=== PATIENT | male | born 1940 | race Caucasian/White ===

== ENCOUNTER 2020-09-26 06:08 | Outpatient (REF) | payer MEDICARE, SELFPAY ==
[2020-09-26 07:00] LABS: MANUAL DIFF FLAG NO
[2020-09-26 07:01] LABS: Basophils Percent Auto 0.3 % (0-2); Eosinophils Absolute Auto 0.2 X10*3/uL (0.0-0.4); Eosinophils Percent Auto 2.9 % (0-4); Hematocrit 42.2 % (42-52); Hemoglobin 14.1 g/dl (14.0-18.0); Imm Gran Abs Auto 0.01 X10*3/uL (0.00-0.03); Imm Gran Pct Auto 0.2 % (0.0-0.4); Lymphocytes Percent Auto 32.6 % (20-40); Mean Corpuscular HGB Conc 33.4 g/dl (31.0-36.0); Mean Corpuscular Hemoglobin 33.1 pg (27.0-33.0); Mean Corpuscular Volume 99.1 fL (80-98); Monocytes Absolute Auto 0.6 X10*3/uL (0.1-1.2); Monocytes Percent Auto 9.1 % (2-11); Neutrophils Absolute Auto 3.4 X10*3/uL (2.0-8.3); Neutrophils Percent Auto 54.9 % (45-73); Platelet Count 160 X10*3/uL (160-400); Red Blood Count 4.26 X10*6/uL (4.60-5.80); Red Cell Distribution Width 12.5 % (11.0-16.0); White Blood Count 6.3 X10*3/uL (4.8-10.8)
[2020-09-26 07:37] LABS: Alanine Aminotransferase 13 U/L (0-40); Albumin Level 4.3 g/dL (3.5-5.0); Alkaline Phosphatase 57 U/L (39-117); Anion Gap 11 (12-20); Aspartate Amino Transferase 16 U/L (5-37); Bilirubin Direct 0.3 mg/dL (0.0-0.5); Bilirubin Total 0.7 mg/dL (0.0-1.0); Blood Urea Nitrogen 25 mg/dL (9-16); Calcium 8.4 mg/dL (8.4-10.2); Carbon Dioxide 27 mmol/L (22-29); Chloride 107 mmol/L (96-108); Cholesterol 142 mg/dL; Estimated Glomerular Filt Rate 59; Glucose Fasting 97 mg/dL (60-99); HDL Cholesterol 38 mg/dL; LDL Cholesterol Calculated 81 mg/dl; Potassium 4.2 mmol/l (3.3-5.1); Sodium 141 mmol/L (135-145); Total Protein 6.6 g/dL (6.5-8.0); Triglycerides 116 mg/dL
== END 2020-09-26 06:09 | disposition home or self-care (01) ==
LOC: HO.LAB 06:08
DX: I10 Essential (primary) hypertension (principal); E78.5 Hyperlipidemia, unspecified
CPT/HCPCS: 36415; 80053; 80061; 80076; 82248; 85025

== ENCOUNTER 2021-04-12 06:01 | Outpatient (REF) | payer MEDICARE, SELFPAY ==
[2021-04-12 07:32] LABS: Anion Gap 12 (12-20); Blood Urea Nitrogen 21 mg/dL (9-16); Carbon Dioxide 28 mmol/L (22-29); Chloride 107 mmol/L (96-108); Estimated Glomerular Filt Rate 57; Magnesium 1.8 mg/dL (1.6-2.6); Potassium 4.8 mmol/L (3.3-5.1); Sodium 142 mmol/L (135-145)
== END 2021-04-12 06:02 | disposition home or self-care (01) ==
LOC: HO.LAB 06:01
PROVIDERS: PCP Family Medicine; Visit Provider Family Medicine
DX: I10 Essential (primary) hypertension (principal); Z79.899 Other long term (current) drug therapy
CPT/HCPCS: 36415; 80051; 82565; 83735; 84520

== ENCOUNTER 2021-06-05 05:56 | Outpatient (REF) | payer MEDICARE, SELFPAY ==
--- NOTE | ~2021-06-05 | XR_ITS ---
EXAMINATION: XR ANKLE, RIGHT XR LUMBAR SPINE CLINICAL INFORMATION: Right lateral ankle pain and back pain. COMPARISON: None TECHNIQUE: Three views of the right ankle and three views of the lumbar spine. FINDINGS: RIGHT ANKLE: There is no evidence of acute fracture or dislocation of the right ankle. There is noted to be some soft tissue swelling laterally with loss of fat plane. Mortise appears intact. There is some spurring with ossific calcifications about the medial malleolus. These are likely post traumatic and not secondary to secondary ossification centers. There is some spurring about the dorsal aspects of the talar and navicular bones. Calcaneal spurs at sites of insertion of plantar and Achilles tendons. LUMBAR SPINE: There are 5 nonrib-bearing lumbar vertebrae. There is mild scoliosis, convex left. Prominent multilevel spurring is present without significant disc space narrowing. There is prominent facet arthropathy noted at L4 through S1. There is calcification of a nonaneurysmal abdominal aorta. XR/XR lumbar spine 2-3V IMPRESSION: Degenerative change and soft tissue swelling about the right ankle without evidence of acute fracture or dislocation. Prominent calcaneal spurs. No evidence of acute fracture, spondylolisthesis, or spondylolysis of the lumbar spine. Multilevel degenerative spurring and facet arthropathy within the lumbar spine.
--- NOTE | ~2021-06-05 | XR_ITS ---
EXAMINATION: XR ANKLE, RIGHT XR LUMBAR SPINE CLINICAL INFORMATION: Right lateral ankle pain and back pain. COMPARISON: None TECHNIQUE: Three views of the right ankle and three views of the lumbar spine. FINDINGS: RIGHT ANKLE: There is no evidence of acute fracture or dislocation of the right ankle. There is noted to be some soft tissue swelling laterally with loss of fat plane. Mortise appears intact. There is some spurring with ossific calcifications about the medial malleolus. These are likely post traumatic and not secondary to secondary ossification centers. There is some spurring about the dorsal aspects of the talar and navicular bones. Calcaneal spurs at sites of insertion of plantar and Achilles tendons. LUMBAR SPINE: There are 5 nonrib-bearing lumbar vertebrae. There is mild scoliosis, convex left. Prominent multilevel spurring is present without significant disc space narrowing. There is prominent facet arthropathy noted at L4 through S1. There is calcification of a nonaneurysmal abdominal aorta. XR/XR ankle RT min 3V IMPRESSION: Degenerative change and soft tissue swelling about the right ankle without evidence of acute fracture or dislocation. Prominent calcaneal spurs. No evidence of acute fracture, spondylolisthesis, or spondylolysis of the lumbar spine. Multilevel degenerative spurring and facet arthropathy within the lumbar spine.
[2021-06-05 07:02] LABS: MANUAL DIFF FLAG NO
[2021-06-05 07:08] LABS: Basophils Percent Auto 0.2 % (0-2); Eosinophils Absolute Auto 0.2 X10*3/uL (0.0-0.4); Eosinophils Percent Auto 2.9 % (0-4); Hematocrit 41.7 % (42-52); Hemoglobin 13.9 g/dl (14.0-18.0); Imm Gran Abs Auto 0.02 X10*3/uL (0.00-0.03); Imm Gran Pct Auto 0.3 % (0.0-0.4); Lymphocytes Absolute Auto 2.4 X10*3/uL (1.2-4.9); Lymphocytes Percent Auto 36.2 % (20-40); Mean Corpuscular HGB Conc 33.3 g/dl (31.0-36.0); Mean Corpuscular Hemoglobin 32.7 pg (27.0-33.0); Mean Corpuscular Volume 98.1 fL (80-98); Mean Platelet Volume 10.6 fL (9.4-12.4); Monocytes Absolute Auto 0.7 X10*3/uL (0.1-1.2); Monocytes Percent Auto 9.8 % (2-11); Neutrophils Absolute Auto 3.4 X10*3/uL (2.0-8.3); Neutrophils Percent Auto 50.6 % (45-73); Platelet Count 165 X10*3/uL (160-400); Red Blood Count 4.25 X10*6/uL (4.60-5.80); White Blood Count 6.6 X10*3/uL (4.8-10.8)
[2021-06-05 07:30] LABS: Alanine Aminotransferase 11 U/L (0-40); Albumin Level 4.1 g/dL (3.5-5.0); Alkaline Phosphatase 54 U/L (39-117); Anion Gap 15 (12-20); Aspartate Amino Transferase 16 U/L (5-37); Bilirubin Total 0.8 mg/dL (0.0-1.0); Blood Urea Nitrogen 28 mg/dL (9-16); Calcium 9.7 mg/dL (8.4-10.2); Carbon Dioxide 25 mmol/L (22-29); Chloride 107 mmol/L (96-108); Estimated Glomerular Filt Rate 51; Glucose Fasting 111 mg/dL (60-99); Potassium 4.7 mmol/L (3.3-5.1); Sodium 142 mmol/L (135-145); Total Protein 6.7 g/dL (6.5-8.0)
[2021-06-05 07:52] LABS: Free T4 (Free Thyroxine) 0.96 ng/dL (0.71-1.85)
== END 2021-06-05 05:57 | disposition home or self-care (01) ==
LOC: HO.LAB 05:56
PROVIDERS: PCP Family Medicine; Visit Provider Family Medicine
DX: M54.9 Dorsalgia, unspecified (principal); M25.571 Pain in right ankle and joints of right foot
CPT/HCPCS: 36415; 72100; 73610; 80053; 82550; 84439; 85025

== ENCOUNTER 2021-12-23 15:42 | Outpatient (REF) | payer MEDICARE, SELFPAY ==
--- NOTE | ~2021-12-23 | US_ITS ---
EXAMINATION: US VENOUS ULTRASOUND WITH DOPPLER LOWER EXTREMITY, RIGHT CLINICAL INFORMATION: Right leg swelling. COMPARISON: Previous exams most recent September 2019 TECHNIQUE: Ultrasound of the deep veins is performed from the hip to the calf with compression sonography and color and pulse Doppler assessment. Spectral analysis with color-flow imaging is performed. FINDINGS: There is normal venous compression and respiratory variation and augmented flow. The visualized common femoral vein, superficial femoral vein, profunda femoral vein, popliteal vein, and the trifurcation region shows no evidence of deep venous thrombosis. There is diffuse edema. There is right inguinal lymphadenopathy. There is no significant popliteal fossa cyst. US/US venous duplex LE RT IMPRESSION: No DVT demonstrated in the right lower extremity.
== END 2021-12-23 15:43 | disposition home or self-care (01) ==
LOC: HO.US 15:42
PROVIDERS: PCP Family Medicine; Visit Provider Family Medicine
DX: R60.0 Localized edema (principal)
CPT/HCPCS: 93971

== ENCOUNTER 2022-02-18 06:00 | Outpatient (REF) | payer MEDICARE, SELFPAY ==
[2022-02-18 08:02] LABS: Anion Gap 17 (12-20); Blood Urea Nitrogen 36 mg/dL (9-16); Carbon Dioxide 22 mmol/L (22-29); Chloride 101 mmol/L (96-108); Estimated Glomerular Filt Rate 39; Sodium 136 mmol/L (135-145)
== END 2022-02-18 06:01 | disposition home or self-care (01) ==
LOC: HO.LAB 06:00
PROVIDERS: PCP Family Medicine; Visit Provider Family Medicine
DX: I10 Essential (primary) hypertension (principal)
CPT/HCPCS: 36415; 80051; 82565; 84520

== ENCOUNTER 2022-03-25 06:22 | Outpatient (REF) | payer MEDICARE, SELFPAY ==
[2022-03-25 06:37] LABS: MANUAL DIFF FLAG NO
[2022-03-25 07:30] LABS: Basophils Percent Auto 0.1 % (0-2); Eosinophils Absolute Auto 0.1 X10*3/uL (0.0-0.4); Eosinophils Percent Auto 0.8 % (0-4); Hematocrit 36.7 % (42.0-52.0); Imm Gran Abs Auto 0.04 X10*3/uL (0.00-0.03); Imm Gran Pct Auto 0.4 % (0.0-0.4); Lymphocytes Absolute Auto 1.7 X10*3/uL (1.2-4.9); Lymphocytes Percent Auto 17.9 % (20-40); Mean Corpuscular HGB Conc 32.7 g/dl (31.0-36.0); Mean Corpuscular Hemoglobin 32.3 pg (27.0-33.0); Mean Corpuscular Volume 98.7 fL (80.0-98.0); Mean Platelet Volume 10.2 fL (9.4-12.4); Monocytes Absolute Auto 0.7 X10*3/uL (0.1-1.2); Monocytes Percent Auto 7.1 % (2-11); Neutrophils Absolute Auto 7.1 x10*3/uL (2.0-8.3); Neutrophils Percent Auto 73.7 % (45-73); Platelet Count 148 X10*3/uL (160-400); Red Blood Count 3.72 X10*6/uL (4.60-5.80); Red Cell Distribution Width 14.9 % (11.0-16.0); White Blood Count 9.7 X10*3/uL (4.8-10.8)
[2022-03-25 07:57] LABS: Alanine Aminotransferase 10 U/L (0-40); Albumin Level 3.5 g/dL (3.5-5.0); Alkaline Phosphatase 45 U/L (39-117); Anion Gap 12 (12-20); Aspartate Amino Transferase 12 U/L (5-37); Bilirubin Total 0.5 mg/dL (0.0-1.0); Blood Urea Nitrogen 33 mg/dL (9-16); Calcium 8.6 mg/dL (8.4-10.2); Carbon Dioxide 25 mmol/L (22-29); Chloride 106 mmol/L (96-108); Estimated Glomerular Filt Rate 39; Glucose Random 154 mg/dL (60-115); Potassium 4.3 mmol/L (3.3-5.1); Sodium 139 mmol/L (135-145); Total Protein 6.1 g/dL (6.5-8.0)
[2022-03-25 08:18] LABS: Free T4 (Free Thyroxine) 1.03 ng/dL (0.71-1.85)
[2022-03-25 08:22] LABS: Erythrocyte Sedimentation Rate 50 MM/HR (0-15)
== END 2022-03-25 06:23 | disposition home or self-care (01) ==
LOC: HO.LAB 06:22
PROVIDERS: PCP Family Medicine; Visit Provider Family Medicine
DX: R06.02 Shortness of breath (principal); R53.83 Other fatigue; R42 Dizziness and giddiness
CPT/HCPCS: 36415; 80053; 84439; 85025; 85652

== ENCOUNTER 2022-08-11 05:57 | Outpatient (REF) | payer MEDICARE, SELFPAY ==
[2022-08-11 07:17] LABS: Alanine Aminotransferase 14 U/L (0-40); Albumin Level 4.1 g/dL (3.5-5.0); Alkaline Phosphatase 53 U/L (39-117); Anion Gap 16 (12-20); Aspartate Amino Transferase 16 U/L (5-37); Bilirubin Total 0.4 mg/dL (0.0-1.0); Blood Urea Nitrogen 28 mg/dL (9-16); Calcium 8.8 mg/dL (8.4-10.2); Carbon Dioxide 24 mmol/L (22-29); Chloride 107 mmol/L (96-108); Estimated Glomerular Filt Rate 50; Glucose Random 98 mg/dL (60-115); Potassium 4.3 mmol/L (3.3-5.1); Sodium 143 mmol/L (135-145); Total Protein 6.6 g/dL (6.5-8.0)
== END 2022-08-11 05:58 | disposition home or self-care (01) ==
LOC: HO.LAB 05:57
PROVIDERS: PCP Family Medicine; Visit Provider Family Medicine
DX: I10 Essential (primary) hypertension (principal); E78.00 Pure hypercholesterolemia, unspecified; R73.9 Hyperglycemia, unspecified; Z79.899 Other long term (current) drug therapy
CPT/HCPCS: 36415; 80053; 82550

== ENCOUNTER → 2022-09-04 06:03 | Outpatient (REF) | payer MEDICARE, SELFPAY ==
--- NOTE | 2022-09-04 06:45 | ECG_ITS ---
Test Reason : MALLOY Blood Pressure : / mmHG Vent. Rate : 071 BPM Atrial Rate : 070 BPM P-R Int : 000 ms QRS Dur : 098 ms QT Int : 378 ms P-R-T Axes : 000 029 087 degrees QTc Int : 410 ms Normal sinus rhythm with premature supra-ventricular complexes Nonspecific T wave abnormality Abnormal ECG When compared with ECG of 11-MAR-2010 13:36, Premature supraventricular complexes are now Present Nonspecific T wave abnormality is now Present Referred By: Trip Blanton Electronically Signed By:YOEL ANGUIANO
== END ==
LOC: HO.CARD 06:03
PROVIDERS: PCP Family Medicine; Visit Provider Family Medicine
DX: R06.00 Dyspnea, unspecified (principal)
CPT/HCPCS: 93005

== ENCOUNTER → 2022-10-14 07:23 | Outpatient (REF) | payer MEDICARE, SELFPAY ==
--- NOTE | 2022-10-14 07:28 | CA_ITS ---
Transthoracic Echocardiogram Patient (Last, First, Middle): Narendra Batista, Gender: Male Date of : 1940 Age: 82 Procedure Date: 10/14/2022 Procedure Type: Transthoracic Echocardiogram Location: OP Height: 172.72 cm Weight: 84.37 kg BSA: 1.98 m2 Heart Rate: 67 bpm BP: 132 / 64 mmHg Shop Router: SB Referring MD: Trip Blanton MD Telephone Supervisor: Adam Bravo MD Symptoms: I10 HTN SOB R06.02 R/O LVH Study Quality: Fair but adequate ECG Rhythm: Sinus Conclusions: - 1. Normal LV systolic function with grade 1 diastolic dysfunction with mild asymmetric septal hypertrophy 2. Mildly dilated left atrium 3. Normal cardiac valvular Dopplers 4. Normal RV systolic pressure 5. No gross pericardial effusion Findings Left Ventricle Normal left ventricular size, thickness, and systolic function. The visually estimated ejection fraction is between 55-60%. Regional wall motion abnormalities can not be excluded due to suboptimal endocardial definition. Spectral Doppler is indicative of an impaired relaxation filling pattern. E/E prime ratio is <8, consistent with normal filling pressures. Evidence suggests grade I (mild) diastolic dysfunction. There is mild septal asymmetric hypertrophy. Right Ventricle Normal right ventricular cavity size and systolic function. Atria The left atrium is mildly dilated. There is no evidence of interatrial shunt. The right atrium is normal in size. Aortic Valve The aortic valve structure and function is likely normal. There is no aortic valve stenosis. There is no aortic valve regurgitation. Mitral Valve There is mild anterior and posterior mitral leaflet thickening. There is trace mitral valve regurgitation. There is no mitral valve stenosis. Pulmonic Valve The pulmonic valve is likely normal. Tricuspid Valve Normal tricuspid valve structure. There is trace tricuspid valve regurgitation. The right ventricular systolic pressure is normal. The right ventricular systolic pressure is 36 mmHg. Normal right atrial pressure. There is no evidence of pulmonary hypertension. Great Vessels All visible segments of the aorta are normal in size. The pulmonary artery was not well visualized. Venous The inferior vena cava is normal in size and collapses greater than 50% with inspiration. Pericardium/Pleural There is no evidence of pericardial effusion. Measurements 2D Linear Measurements IVSd: 1.25 0.6-0.9/0.6-1.0 cm LVIDd: 5.07 3.9-5.3/4.2-5.9 cm LVIDd Index: 2.56 2.4-3.2/2.2-3.1 cm/m2 LVIDs: 3.63 2.0-3.6 cm LVPWd: 0.93 0.7-1.1 cm LA Diam: 3.80 2.7-3.8/3.0-4.0 cm LAIDs Index: 1.92 1.5-2.3 cm/m2 LV Mass: 260.95 67-162/88-224 g LV Mass Index: 131.79 43-95/49-115 g/m2 LVOT Diam: 2.20 3.0+(-)1.3 cm 2D Systolic Function EF 4C: 53.70 >55% Mitral Valve MV Pk E: 0.68 MV PK A: 0.72 MV Decel Time: 215.00 E/A: 0.90 E'Lateral: 7.62 E'Medial: 7.62 E/E' Med: 8.90 E/E' Lat: 8.90 PHT: 63.00 MVA PHT: 3.49 Decel [place]arton: 3.15 Aortic Valve AoV Pk Kel: 1.31 AoV Mn Kel: 0.93 AoV VTI: 0.29 AoV Pk Grad: 7.00 Aov Mn Grad: 4.00 PAPO Cont.VTI: 2.16 LVOT LVOT Pk Kel: 0.74 LVOT Mn Kel: 0.53 LVOT VTI: 0.17 LVOT Pk Grad: 2.00 LVOT Mn Grad: 1.00 LVOT Diam: 2.20 LVOT Area: 3.80 Diastolic Function MV Pk E: 0.68 MV Pk A: 0.72 E/A: 0.90 E'Medial: 7.62 E/E' Med: 8.90 E' Laterial: 7.62 E/E' Lat: 8.90 Right Ventricle TAPSE (mm): 27.50 TVS' Kel: 19.60 Tricuspid Valve TR Pk Kel: 2.86 TR Pk Grad: 33.00 RA Press: 3.00 RVSP: 36.00 Great Vessels Aorta Sinus of Valsalva: 3.60 2.0-3.5 cm Ao Asc: 3.50 2.1-3.4 cm Pulmonary Veins Pulm Vein S/D 1.30 Pulmonary Valve PV Pk Kel: 1.16 Peak PV Grad: 5.00 Updated in Other Vendor System with Status of Final Adam Bravo MD electronically signed on 10/15/2022 2:04:04 PM with status of Final
== END ==
LOC: HO.CARD 07:23
PROVIDERS: Visit Provider Family Medicine
DX: I10 Essential (primary) hypertension (principal); R06.02 Shortness of breath
CPT/HCPCS: 93306

== ENCOUNTER 2023-02-06 05:59 | Outpatient (REF) | payer MEDICARE, SELFPAY ==
[2023-02-06 07:30] LABS: Anion Gap 15 (12-20); Blood Urea Nitrogen 18 mg/dL (9-16); Carbon Dioxide 23 mmol/L (22-29); Chloride 107 mmol/L (96-108); Estimated Glomerular Filt Rate 58; Potassium 4.1 mmol/L (3.3-5.1); Sodium 141 mmol/L (135-145)
== END 2023-02-06 06:00 | disposition home or self-care (01) ==
LOC: HO.LAB 05:59
PROVIDERS: PCP Family Medicine; Visit Provider Family Medicine
DX: I10 Essential (primary) hypertension (principal)
CPT/HCPCS: 36415; 80051; 82565; 84520

== ENCOUNTER 2023-02-26 14:12 | Outpatient (REF) | payer MEDICARE, SELFPAY ==
[2023-02-26 14:23] LABS: MANUAL DIFF FLAG NO
[2023-02-26 14:47] LABS: Basophils Percent Auto 0.1 % (0-2); Eosinophils Absolute Auto 0.1 X10*3/uL (0.0-0.4); Eosinophils Percent Auto 1.6 % (0-4); Hematocrit 38.6 % (42.0-52.0); Hemoglobin 12.8 g/dl (14.0-18.0); Imm Gran Abs Auto 0.02 X10*3/uL (0.00-0.03); Imm Gran Pct Auto 0.3 % (0.0-0.4); Lymphocytes Absolute Auto 1.9 X10*3/uL (1.2-4.9); Lymphocytes Percent Auto 26.1 % (20-40); Mean Corpuscular HGB Conc 33.2 g/dl (31.0-36.0); Mean Corpuscular Hemoglobin 32.3 pg (27.0-33.0); Mean Corpuscular Volume 97.5 fL (80.0-98.0); Mean Platelet Volume 10.7 fL (9.4-12.4); Monocytes Absolute Auto 0.6 X10*3/uL (0.1-1.2); Monocytes Percent Auto 7.9 % (2-11); Neutrophils Absolute Auto 4.7 x10*3/uL (2.0-8.3); Platelet Count 171 X10*3/uL (160-400); Red Blood Count 3.96 X10*6/uL (4.60-5.80); Red Cell Distribution Width 13.7 % (11.0-16.0); White Blood Count 7.4 X10*3/uL (4.8-10.8)
[2023-02-26 15:28] LABS: Prostate Specific Antigen Scr 1.03 ng/mL (<0.05-4.0)
[2023-02-26 15:54] LABS: Erythrocyte Sedimentation Rate 10 MM/HR (0-15)
== END 2023-02-26 14:13 | disposition home or self-care (01) ==
LOC: HO.LAB 14:12
PROVIDERS: PCP Family Medicine; Visit Provider Family Medicine
DX: R10.32 Left lower quadrant pain (principal); R31.9 Hematuria, unspecified; Z12.5 Encounter for screening for malignant neoplasm of prostate
CPT/HCPCS: 36415; 84153; 85025; 85652

== ENCOUNTER 2023-03-10 13:45 | Outpatient (REF) | payer MEDICARE, SELFPAY ==
--- NOTE | ~2023-03-10 | US_ITS ---
EXAMINATION: US RETROPERITONEAL COMPLETE (RENAL) CLINICAL INFORMATION: Left lower quadrant pain, hematuria. COMPARISON: None available. TECHNIQUE: Real-time imaging of the kidneys and bladder. FINDINGS: RIGHT KIDNEY: 11.4 x 5.2 x 5.1 cm (SAG x AP x TRV). The kidney is normal in size, contour, and echogenicity. Renal cortical thickness is normal. No calculi or focal parenchymal lesions. No hydronephrosis. LEFT KIDNEY: 11.7 x 6.2 x 6.5 cm (SAG x AP x TRV). The kidney is normal in size, contour, and echogenicity. Renal cortical thickness is normal. No renal calculi or hydronephrosis. There are several cysts including a 5.4 cm cyst with thin septation in the mid kidney. No imaging follow-up is recommended. BLADDER: Distended urinary bladder with prevoid volume 431 mL. Trabeculations. Post void bladder volume 423 mL. There are bladder diverticuli. ADDITIONAL FINDINGS: The prostate is enlarged measuring 47 mL. US/US retroperitoneal comp IMPRESSION: Distended trabeculated urinary bladder with prevoid volume 431 mL and post void volume 423 mL. Enlarged prostate measuring 47 mL..
== END 2023-03-10 13:46 | disposition home or self-care (01) ==
LOC: HO.US 13:45
PROVIDERS: PCP Family Medicine; Visit Provider Family Medicine
DX: R10.32 Left lower quadrant pain (principal); R31.9 Hematuria, unspecified
CPT/HCPCS: 76770

== ENCOUNTER 2023-06-04 09:18 | Outpatient (REF) | payer MEDICARE, SELFPAY | END 2023-06-04 09:19 | disposition home or self-care (01) | LOC: HO.RESP 09:18 | PROVIDERS: PCP Family Medicine; Visit Provider Family Medicine | DX: R06.02 Shortness of breath (principal) | CPT/HCPCS: 94060; 94727; 94729 ==

== ENCOUNTER 2023-07-27 10:49 | Inpatient (IN) | payer MEDICARE, SELFPAY ==
--- NOTE | ~2023-07-27 | XR_ITS ---
EXAMINATION: XR CHEST CLINICAL INFORMATION: SOB. COMPARISON: Chest x-ray 09/18/2015 TECHNIQUE: Frontal view of the chest was obtained. FINDINGS: The lungs are well-expanded and clear of acute pneumonic process. The heart size enlarged. The pulmonary vascularity is normal. There is mild widening of the mediastinum. The thoracic aortic arch is ectatic No gross bony abnormality seen. 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 Mild cardiomegaly. No acute pulmonary process seen.
--- NOTE | ~2023-07-27 | CT_ITS ---
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 COMPARISON: Chest x-ray today. TECHNIQUE: Multidetector volumetric imaging was performed from the thoracic inlet through the lung bases without contrast. Sagittal and coronal reformatted images were obtained on the technologist workstation. Soft tissue and lung algorithms evaluated. Thick slab MIP images were performed to increase nodule conspicuity. This CT examination was performed using dose optimization techniques as appropriate, variously including the following: *Automated exposure control *Adjustment of mA and/or kV according to patient size (this includes techniques or standardized protocols for targeted exams where dose is matched to indication/reason for exam; i.e. extremities or head) *Use of iterative reconstruction technique DLP: 268 mGy-cm. FINDINGS: LUNG: Calcified bilateral granulomas are seen. Linear dependent regions of scarring or atelectasis. No dense consolidation. No pneumothorax. MEDIASTINUM: Calcified right hilar and mediastinal nodes consistent with prior granulomatous disease. Extensive vascular calcification within the tortuous aorta and calcified coronary vessels CORONARY ARTERY CALCIFICATION: Present PERICARDIUM/PLEURA: No significant effusion. No pleural mass or thickening. THYROID/VISUALIZED LOWER NECK: Unremarkable. CHEST WALL/AXILLA: Unremarkable. VISUALIZED UPPER ABDOMEN: Splenic calcifications consistent with prior granulomatous. 4.2 cm cyst in the upper pole of the left kidney. BONES: Multilevel degenerative changes in the spine with bridging osteophytosis and/or calcified bridging syndesmophytes suggesting component of underlying ankylosing spondylitis superimposed on chronic degenerative changes CT/CT chest wo IV con IMPRESSION: No evidence for aortic aneurysm within the tortuous calcified thoracic aorta. Extensive vascular calcification within the aorta and coronary vessels. Evidence of prior granulomatous disease.
--- NOTE | ~2023-07-27 | US_ITS ---
EXAMINATION: US VENOUS ULTRASOUND WITH DOPPLER LOWER EXTREMITY, LEFT CLINICAL INFORMATION: Redness and swelling COMPARISON: Previous exam September 2019 TECHNIQUE: Ultrasound of the deep veins is performed from the hip to the calf with compression sonography and color and pulse Doppler assessment. Spectral analysis with color-flow imaging is performed. FINDINGS: There is normal venous compression and respiratory variation and augmented flow. The visualized common femoral vein, superficial femoral vein, profunda femoral vein, popliteal vein, and the trifurcation region shows no evidence of deep venous thrombosis. There is no significant popliteal fossa cyst. Post ablation changes seen in the visualized greater saphenous vein in the upper thigh. If the patient's symptoms persist, followup ultrasound in 5 days 7 days might be of value to exclude proximal propagation from a non-visualized calf vein. US/US venous duplex LE IMPRESSION: No DVT demonstrated in the left lower extremity.
--- NOTE | ~2023-07-27 | NM_ITS ---
EXAMINATION: PULMONARY PERFUSION STUDY CLINICAL INFORMATION: Shortness of breath, rule out pulmonary embolism. COMPARISON: No previous lung scan is available for comparison. A radiograph of the chest and CT scan of the chest, both dated 07/27/2023 are available for comparison. TECHNIQUE: Following the intravenous administration of 4.0 mCi Tc-99m MAA an 8-view perfusion study was performed using a dual detector gamma scintillation camera. No ventilation images were obtained. FINDINGS: Perfusion images: No segmental perfusion defects are present. There is mild heterogeneity in the distribution of activity bilaterally, most prominently in the upper lobes. There is some prominence of the interlobar fissure on the right. The mediastinal silhouette is widened, but is well matched to the appearance on the 07/27/[address] scan and the chest radiograph of the same date. No focal anatomic appearing perfusion defects are present. NM/NM pul perfusion IMPRESSION: Very low probability of pulmonary embolism.
--- NOTE | 2023-07-27 11:04 | ED_ITS ---
HPI - General Adult General Stated complaint: L leg redness/ sent by Related Data Allergies Allergy/AdvReac Type Severity Reaction Status Date / Time No Known Allergies Allergy Unverified 07/27/23 11:07 Course Course Course Narrative: This is an RME: Additional HPI, ROS, PE not included below will be deferred to primary provider. Patient is an 83 year old male presenting with leg leg redn ess and burning pain that started suddenly Thursday. He is also having chills, increased thirst, dry mouth, dizziness and shortness of breath. Lungs clear to auscultation bilaterally on exam.
[2023-07-27 11:08] VITALS: BP 121/45; PULSE 89; RESP 24; TEMP 36.6; O2SAT 98; BMI 28.6
--- NOTE | 2023-07-27 11:09 | ECG_ITS ---
Test Reason : sob Blood Pressure : / mmHG Vent. Rate : 085 BPM Atrial Rate : 085 BPM P-R Int : 182 ms QRS Dur : 100 ms QT Int : 354 ms P-R-T Axes : 057 013 051 degrees QTc Int : 421 ms Sinus rhythm with Premature atrial complexes Otherwise normal ECG When compared with ECG of 04-SEP-2022 06:44, Nonspecific T wave abnormality is no longer Present Referred By: Pili Flores Electronically Signed By:YOEL ANGUIANO
[2023-07-27 11:51] LABS: Hematocrit 35.1 % (42.0-52.0); Hemoglobin 11.9 g/dl (14.0-18.0); Mean Corpuscular HGB Conc 33.9 g/dl (31.0-36.0); Mean Corpuscular Hemoglobin 33.1 pg (27.0-33.0); Mean Corpuscular Volume 97.5 fL (80.0-98.0); Mean Platelet Volume 10.3 fL (9.4-12.4); Platelet Count 137 X10*3/uL (160-400); Red Cell Distribution Width 13.9 % (11.0-16.0); White Blood Count 18.7 X10*3/uL (4.8-10.8)
[2023-07-27 11:56] LABS: D Dimer High Sensitivity 678 NG/ML
[2023-07-27 12:04] LABS: Lactic Acid 1.6 mmol/L (0.5-2.0)
[2023-07-27 12:10] LABS: B Type Natriuretic Peptide 248 pg/mL (<100)
--- NOTE | 2023-07-27 12:11 | ED_ITS ---
HPI - General Adult General Chief complaint: General Medical Stated complaint: L leg redness/ sent by Time Seen by Provider: 07/27/23 12:03 Mode of arrival: ambulatory Limitations: no limitations History of Present Illness HPI narrative: This is 83 years old male presented to the emergency department complaining of left leg redness which is started this morning. He denies any fever and chills. Onset (ago): day(s) Location: head Radiation: non-radiation Quality: burning Pain Consistency: constant Relieving factors: none Related Data Allergies Allergy/AdvReac Type Severity Reaction Status Date / Time No Known Allergies Allergy Unverified 07/27/23 11:07 Review of Systems Constitutional: Constitutional: Reports no additional constitutional complaints ENT: Reports system reviewed and no additional complaints, except as documented Respiratory: Respiratory: Reports no additional respiratory complaints PMFSH Past Medical History [facility] Narrative: HTN Physical Exam ED Vital Signs: Vital Signs - 24 hr 07/27/23 11:08 Temperature 98 F Pulse Rate 89 Respiratory Rate 24 H Blood Pressure 121/45 L Pulse Oximetry 98 Oxygen Delivery Method Room Air BMI result Body Mass Index 28.6 Const General: cooperative Nutritional Appearance: well nourished Orientation/consciousness: patient oriented x3 Limitations: no limitations HENMT Head: Yes normal to inspection General nose exam: Normal external nose present Face and sinus: Yes normal facial exam Neck Neck: Yes normal visual inspection Chest Chest palpation & inspection: normal inspection of the chest Resp Effort & Inspection: normal respiratory effort Auscultation: clear to auscultation bilaterally Cardio Jugular venous distension: no JVD Rate: regular rate Rhythm: regular rhythm GI Inspection: Yes normal to inspection Percussion: Yes normal to percussion Skin General skin exam: no rashes or lesions noted and elasticity normal Lesions: no lesions Neuro General: patient oriented x3 Extrem Other: Examination of the left lower extremity showed the redness in the lower leg see picture. Medical Decision Making Medical Decision Making [facility] Narrative: Patient presented with the redness of the left lower extremity elevated white count of 18.7 anticipate admission for IV antibiotic Differential Diagnosis Differential Diagnoses: The differential diagnosis associated with the presentation includes Cellulitis/rash/ Admission/Observation Consideration of admission/observation: Escalation of care including admission/observation considered Lab Data 07/27/23 11:37 07/27/23 11:37 Labs: Lab Results 08/07/27/23 07/27/23 Range/Units 11:37 11:37 11:37 WBC 18.7 H (4.8-10.8) X10*3/uL RBC 3.60 L (4.60-5.80) X10*6/uL Hgb 11.9 L (14.0-18.0) g/dl Hct 35.1 L (42.0-52.0) % MCV 97.5 (80.0-98.0) fL MCH 33.1 H (27.0-33.0) pg MCHC 33.9 (31.0-36.0) g/dl RDW 13.9 (11.0-16.0) % Plt Count 137 L (160-400) X10*3/uL MPV 10.3 (9.4-12.4) fL Immature Gran % (Auto) Cancelled Neut % (Auto) Cancelled Lymph % (Auto) Cancelled [place] % (Auto) Cancelled Eos % (Auto) Cancelled Baso % (Auto) Cancelled Lymph # (Auto) Cancelled [place] # (Auto) Cancelled Eos # (Auto) Cancelled Baso # (Auto) Cancelled Abs Immat Gran (auto) Cancelled Absolute Neuts (auto) Cancelled Absolute Nucleated RBC 0.000 (0.0-0.012) X10*3/uL Nucleated RBC % (auto) 0.0 (0.0-0.2) /100WBC D-Dimer High Sensitivty 678 NG/ML Lactic Acid 1.6 (0.5-2.0) mmol/L Troponin I High Sens (<3.5-35.0) ng/L B-Natriuretic Peptide (<100) pg/mL 07/27/23 07/27/23 Range/Units 11:37 11:37 WBC (4.8-10.8) X10*3/uL RBC (4.60-5.80) X10*6/uL Hgb (14.0-18.0) g/dl Hct (42.0-52.0) % MCV (80.0-98.0) fL MCH (27.0-33.0) pg MCHC (31.0-36.0) g/dl RDW (11.0-16.0) % Plt Count (160-400) X10*3/uL MPV (9.4-12.4) fL Immature Gran % (Auto) Neut % (Auto) Lymph % (Auto) [place] % (Auto) Eos % (Auto) Baso % (Auto) Lymph # (Auto) [place] # (Auto) Eos # (Auto) Baso # (Auto) Abs Immat Gran (auto) Absolute Neuts (auto) Absolute Nucleated RBC (0.0-0.012) X10*3/uL Nucleated RBC % (auto) (0.0-0.2) /100WBC D-Dimer High Sensitivty NG/ML Lactic Acid (0.5-2.0) mmol/L Troponin I High Sens 19.4 (<3.5-35.0) ng/L B-Natriuretic Peptide 248 H (<100) pg/mL Discharge Plan Discharge Clinical Impression: Cellulitis of left leg Patient Disposition: Admitted As Inpatient
[2023-07-27 12:14] LABS: Band Neutrophils Percent 3 % (3-5); Basophils Abs Manual 0.2 X10*3/uL (0.0-0.2); Basophils Percent Manual 1 % (0-2); Lymphocytes Absolute Manual 0.6 X10*3/uL (1.2-4.9); Lymphocytes Percent Manual 3 % (20-40); Monocytes Absolute Manual 0.2 X10*3/uL (0.1-1.2); Monocytes Percent Manual 1 % (2-11); Neutrophils Absolute Manual 17.8 X10*3/uL (2.0-8.3); Neutrophils Percent Manual 92 % (45-73)
[2023-07-27 12:15] LABS: Troponin-I High Sensitivity 19.4 ng/L (<3.5-35.0)
[2023-07-27 12:16] LABS: Acanthocytes 1+ (0-2) /OIF; Burr Cells 2+ (3-5) /OIF; Ovalocytes 1+ (5-14) /OIF; Platelet Estimate DECREASED (NORMAL); Platelet Morphology Comment NORMAL; RBC Morphology NOTED
[2023-07-27] MEDS: vancomycin HCL 1,500 MG in 0.9 % Sodium Chloride 500 ML 333.33 MG IV (12:27)
[2023-07-27 12:28] LABS: Alanine Aminotransferase 11 U/L (0-40); Albumin Level 3.7 g/dL (3.5-5.0); Alkaline Phosphatase 38 U/L (39-117); Anion Gap 11 (12-20); Aspartate Amino Transferase 16 U/L (5-37); Bilirubin Total 0.6 mg/dL (0.0-1.0); Blood Urea Nitrogen 30 mg/dL (9-16); Calcium 8.4 mg/dL (8.4-10.2); Carbon Dioxide 23 mmol/L (22-29); Chloride 105 mmol/L (96-108); Estimated Glomerular Filt Rate 45; Glucose Random 193 mg/dL (60-115); Magnesium 1.3 mg/dL (1.6-2.6); Potassium 4.4 mmol/L (3.3-5.1); Sodium 135 mmol/L (135-145); Total Protein 6.5 g/dL (6.5-8.0)
[2023-07-27 12:29] LABS: Erythrocyte Sedimentation Rate 23 MM/HR (0-15)
--- NOTE | 2023-07-27 13:00 | PM.IMHP ---
History of Present Illness Date of Service: 07/27/23 Chief Complaint: leg pain 83-year-old man presented to the ER with complaints of worsening redness, swelling and pain to left lower extremity. He reports that started yesterday. He felt some itching to the leg and then suddenly developed redness. He denied any fever, chills, nausea, vomiting, diarrhea, recent travel, sick contacts. He denies any injury. He reported a couple years ago he may have had something similar but he does not remember. He is pretty independent continues to drive. He was noted to have elevated white blood cell count of 18.7 with no fever. Creatinine elevated at 1.48, magnesium 1.3. In the ER, he received a dose of vancomycin and IV magnesium. He will be admitted for further management and treatment of acute cellulitis. Review of Systems Review of Systems: Denies any recent fever chills or decrease in appetite respiratory denies any shortness of breath coverage production cardiovascular is adjustment of any PND or edema gastrointestinal denies any dysphagia abdominal pain nausea vomiting or diarrhea genitourinary denies any dysuria frequency or hematuria musculoskeletal denies any joint pain or swelling neuropsych denies any weakness or seizures all other systems reviewed are negative [facility] Medical History (Updated 07/27/23 @ 13:04 by Helen Fam NP) BPH (benign prostatic hyperplasia) GERD (gastroesophageal reflux disease) Hyperlipidemia Hypertension Social History Alcohol intake: current Alcohol intake frequency: holidays/special occasions only Smoked in Last 30 Days: No Advance Directives: No Advance Directives Information Provided: Yes Meds Allergies Allergy/AdvReac Type Severity Reaction Status Date / Time No Known Allergies Allergy Unverified 07/27/23 11:07 Active Medications: Current Medications Vancomycin HCl 1,500 mg/ (Sodium Chloride) 500 mls @ 333.333 mls/hr IV ONCE ONE Stop: 07/27/23 13:38 Last Admin: 07/27/23 12:27 Dose: 333.33 mls/hr Magnesium Sulfate/Dextrose (Magnesium Sulfate/D5w) 1 gm in 100 mls @ 100 mls/hr IV ONCE ONE Stop: 07/27/23 13:34 Home Medications Medication Instructions Recorded Confirmed Last Taken Type amlodipine 5 mg tablet 5 mg PO BEDTIME 07/27/23 07/27/23 07/26/23 History aspirin 81 mg chewable tablet 81 mg PO BEDTIME 07/27/23 07/27/23 07/26/23 History finasteride 5 mg tablet 5 mg PO DAILY 07/27/23 07/27/23 07/27/23 History pantoprazole 40 mg tablet,delayed 40 mg PO DAILY PRN Acid Reflux 07/27/23 07/27/23 Unknown History release simvastatin 40 mg tablet 40 mg PO BEDTIME 07/27/23 07/27/23 07/26/23 History Physical Exam Vital Signs and Narrative: Vital Signs: Last Vital Signs Temp 98 F 07/27/23 11:08 Pulse 89 07/27/23 11:08 Resp 24 H 07/27/23 11:08 BP 121/45 L 07/27/23 11:08 Pulse Ox 98 07/27/23 11:08 O2 Del Method Room Air 07/27/23 11:08 BMI result Body Mass Index 28.6 Appearing in no acute distress head is normocephalic atraumatic eyes pupils are PERRLA sclera is anicteric mouth throat mucous membranes are intact and moist neck is supple no lymphadenopathy, no JVD noted lung sounds are clear to auscultation heart regular rate rhythm, clear S1, S2 positive bowel sounds, abdomen is soft, nontender neuro patient is alert x3, no focal deficits Results Labs 07/27/23 11:37 07/27/23 11:37 Labs: Laboratory Results - last 24 hr 07/27/23 07/27/23 07/27/23 11:37 11:37 11:37 MCV MCH MCHC RDW Plt Count MPV Immature Gran % (Auto) Neut % (Auto) Lymph % (Auto) [place] % (Auto) Eos % (Auto) Baso % (Auto) Lymph # (Auto) [place] # (Auto) Eos # (Auto) Baso # (Auto) Abs Immat Gran (auto) Absolute Neuts (auto) Absolute Nucleated RBC Nucleated RBC % (auto) Neutrophils % (Manual) Band Neutrophils % Lymphocytes % (Manual) Monocytes % (Manual) Basophils % (Manual) Abs Neuts (Manual) Lymphocytes # (Manual) Monocytes # (Manual) Basophils # (Manual) Platelet Estimate Plt Morphology Comment RBC Morphology Ovalocytes [place] Cells Acanthocytes (Spur) ESR 23 H D-Dimer High Sensitivty 678 Anion Gap Estim Creat Clear Calc Estimated GFR Random Glucose Lactic Acid 1.6 Calcium Magnesium Total Bilirubin AST ALT Alkaline Phosphatase C-Reactive Protein B-Natriuretic Peptide Total Protein Albumin 07/27/23 07/27/23 07/27/23 11:37 11:37 11:37 MCV 97.5 MCH 33.1 H MCHC 33.9 RDW 13.9 Plt Count 137 L MPV 10.3 Immature Gran % (Auto) Cancelled Neut % (Auto) Cancelled Lymph % (Auto) Cancelled [place] % (Auto) Cancelled Eos % (Auto) Cancelled Baso % (Auto) Cancelled Lymph # (Auto) Cancelled [place] # (Auto) Cancelled Eos # (Auto) Cancelled Baso # (Auto) Cancelled Abs Immat Gran (auto) Cancelled Absolute Neuts (auto) Cancelled Absolute Nucleated RBC 0.000 Nucleated RBC % (auto) 0.0 Neutrophils % (Manual) 92 H Band Neutrophils % 3 Lymphocytes % (Manual) 3 L Monocytes % (Manual) 1 L Basophils % (Manual) 1 Abs Neuts (Manual) 17.8 H Lymphocytes # (Manual) 0.6 L Monocytes # (Manual) 0.2 Basophils # (Manual) 0.2 Platelet Estimate DECREASED Plt Morphology Comment NORMAL RBC Morphology NOTED Ovalocytes 1+ (5-14) [place] Cells 2+ (3-5) Acanthocytes (Spur) 1+ (0-2) ESR D-Dimer High Sensitivty Anion Gap 11 L Estim Creat Clear Calc 40.0 Estimated GFR 45 Random Glucose 193 H Lactic Acid Calcium 8.4 Magnesium 1.3 L* Total Bilirubin 0.6 AST 16 ALT 11 Alkaline Phosphatase 38 L C-Reactive Protein 20.00 H B-Natriuretic Peptide 248 H Total Protein 6.5 Albumin 3.7 Assessment and Plan (1) Cellulitis of left leg: Status: Acute Plan 83 year old man admitted with cellulitis to right LE Cellulitis, acute Start Vancomycin ID consult elevate extremity pain management Venous Doppler ultrasound Leukocytosis Secondary to cellulitis No sepsis STEPHENIE on CKD stage III HTN Stable blood pressure Hold home antihypertensives for now to avoid hypotension GERD PPI HLD Hold statin for now BPH Continue finasteride DVT prophylaxis with pneumatic compression boots Full code Two midnight S for treatment of acute cellulitis requiring IV antibiotics Time Spent With Patient Time: Total time managing care of this patient today ____ minutes. Quality Stroke Does the patient have a stroke diagnosis?: No VTE Prior VTE?: No VTE Risk Level:: Medical - moderate - high VTE Device Contraindication: N/A - Device Ordered VTE Drug Contraindication: Treatment Not Indicated
--- NOTE | 2023-07-27 13:18 | PHA.MEDREC ---
Pharmacy Consult ? Medication Reconciliation Pharmacy has completed the medication reconciliation. Patient confirmed medications. Reports no longer using inhalers because they did not work. Carly Blanchard, pharmD
[2023-07-27 13:47] VITALS: BP 133/51; PULSE 80
[2023-07-27 13:49] VITALS: BP 142/65; PULSE 86
[2023-07-27 13:50] VITALS: BP 151/59; PULSE 86
[2023-07-27] MEDS: Magnesium Sulfate/D5W 1 GM/100 ML PIGGYBACK IV (14:35)
--- NOTE | 2023-07-27 15:52 | PHA.PROG ---
Admission Date/Time: July 27, 2023 12:57 Indication: Cellulitis Weight in k kg Adjusted body weight in K.6 kg [place] body weight in K.7 kg Obesity Dosing Indication % IBW: 113% Serum Creatinine - Last 168 Hours 07/27/23 11:37 Creatinine 1.48 H Estimated CrCl and GFR - Last 168 Hours 07/27/23 11:37 Estim Creat Clear Calc 40.0 Estimated GFR 45 Vancomycin Loading Dose: 1500 mg Current Vancomycin Dosing Regimen: 1000 mg Q24H Date and Time for next Vancomycin Level to be drawn: 07/30 @ 0600 Pharmacist Comments on Vancomycin Plan: Patient received load dose vancomcyn 1500 mg (17 mg/kg) in the ER 07/27 @ 12:27. Since patient did not receive an adequate load dose will start maintenance dose 4 hours to help create a load for the patient Maintenance dose vancomycin 1000 mg Q24H is scheduled to start 07/28 @ 0800. Expected AUC is expected to be 520 with a trough of 15.8 Level is schedule prior to 4th dose Pharmacy will monitor renal function daily Carly Blanchard PharmD Vancomycin dosing will take advantage of meets as a clinical decision support tool that uses Bayesian modeling to calculate individual patient's pharmacokinetic parameters and forecast the patient's drug concentration time course with the target goal AUC 24 range of 400 - 600 mg/L/hr.
[2023-07-27 17:26] VITALS: BP 167/74; PULSE 90; RESP 24; TEMP 36.6; O2SAT 97
--- NOTE | 2023-07-27 18:12 | PC.NURSE ---
Upon arrival to the floor, pt ambulated from wheelchair to bed. Pt became short of breath with respirations of 24. O2 97 on room air HR 90, BP 167/74. Pt reported feeling short of breath. Pt sat up in bed. Helen Fam NP notified. Pt reassessed at 1800 still feeling short of breath. Increased work of breathing with respirations increased to 28. O2 sat 95 on room air. HR 93. Dr Parks notified as provider on site.
[2023-07-27] MEDS: Enoxaparin Sodium 100 MG/ML SYRINGE 90 MG SUBCUT (19:39)
[2023-07-27] MEDS: 0.9 % Sodium Chloride Flush 3 ML SYRINGE IVFLUSH (19:41)
[2023-07-27 20:00] VITALS: BP 125/66; PULSE 106; RESP 16; TEMP 37.7; O2SAT 92
--- NOTE | 2023-07-27 20:14 | PM.EVENT ---
Event Note Date of Service: 07/27/23 Event Note: This patient is seen and examined with APC. 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 Denies any chest pain Feel somewhat more short of breath, desats in 87 range -needed oxygen Had might trace edema of legs, JVD equivocal D-dimer elevated DVT study of the leg is negative preliminaries Physical exam and assessment and plan coordinated in APCs note, Agree with the plan in addition: Acute hypoxemic respiratory failure secondary to unclear etiology( possible chf vs pulm embolism ) Patient continue not decided about CTA even though I have explained the risk in in detail, he said he will get back to us. added plain ct chest to check aortic vessles stat - presentation does not match with aortic dissection(no chest pain, blood pressure bilaterally all on the arms is fine in 120 over 60s range, did not have sighnificant uncontrolled bp) and sob seems progressive from months . above is d/w with pulm -add lovenox until further pulm embolism investigation done-since his D-dimer high, has tachycardia, tachypnea and fluctuating oxygen saturations . Time Spent With Patient Time: Total time managing care of this patient today ____ minutes.
[2023-07-28 04:00] VITALS: BP 130/60; PULSE 68; RESP 18; TEMP 36.3; O2SAT 98
[2023-07-28 06:57] VITALS: BP 134/64; PULSE 70; RESP 20; TEMP 36.3; O2SAT 100
--- NOTE | 2023-07-28 07:00 | CA_ITS ---
Transthoracic Echocardiogram Patient (Last, First, Middle): Narendra Batista, Gender: Male Date of : 1940 Age: 83 Procedure Date: 07/28/2023 Procedure Type: Transthoracic Echocardiogram Location: S3E Height: 175.26 cm Weight: 88. kg BSA: 2.04 m2 Heart Rate: 75 bpm BP: 134 / 64 mmHg Circulation Director: REINA Referring MD: Nafisa Parks MD Symptoms: cardiomegaly/ectatic aorta Study Quality: Fair ECG Rhythm: Sinus with PAC Conclusions: - Normal left ventricular cavity size. There is mildly increased left ventricular wall thickness. The left ventricular systolic function is low normal. The visually estimated ejection fraction is between 50-55%. - Mildly increased right ventricular cavity size. There is normal right ventricular systolic function. Findings Left Ventricle Normal left ventricular cavity size. There is mildly increased left ventricular wall thickness. The left ventricular systolic function is low normal. The visually estimated ejection fraction is between 50-55%. There is no evidence of regional wall motion abnormalities. Diastolic function is normal for age. Right Ventricle Mildly increased right ventricular cavity size. There is normal right ventricular systolic function. Atria The left atrium is mildly dilated. Aortic Valve Normal aortic valve structure and function. There is no aortic valve stenosis. There is no aortic valve regurgitation. Mitral Valve Normal mitral valve structure and function. There is trace mitral valve regurgitation. There is no mitral valve stenosis. Pulmonic Valve The pulmonic valve is normal. There is no pulmonic valve regurgitation. Tricuspid Valve Normal tricuspid valve structure and function. There is trace tricuspid valve regurgitation. Normal right atrial pressure. There is no evidence of pulmonary hypertension. Great Vessels There is mild dilatation of the ascending aorta measuring 3.60 cm. Venous The inferior vena cava is normal in size and collapses greater than 50% with inspiration. Pericardium/Pleural There is no evidence of pericardial effusion. Prior Study Comparison Changes noted compared to prior study dated: 10/14/2022. Low normal LVEF, RV mildly dilated. Measurements 2D Linear Measurements IVSd: 0.90 0.6-0.9/0.6-1.0 cm LVIDd: 5.50 3.9-5.3/4.2-5.9 cm LVIDd Index: 2.70 2.4-3.2/2.2-3.1 cm/m2 LVIDs: 3.20 2.0-3.6 cm LVPWd: 1.00 0.7-1.1 cm Ao Root: 3.70 2.1-3.5 cm LA Diam: 4.20 2.7-3.8/3.0-4.0 cm LAIDs Index: 2.06 1.5-2.3 cm/m2 LV Mass: 248.40 67-162/88-224 g LV Mass Index: 121.77 43-95/49-115 g/m2 LVOT Diam: 2.30 3.0+(-)1.3 cm 2D Systolic Function EF 4C: 51.70 >55% EF 2C: 53.80 >55% EF BiP: 54.70 >55% Mitral Valve MV Pk E: 0.58 MV PK A: 0.77 MV Decel Time: 252.00 E/A: 0.80 E'Lateral: 7.51 E'Medial: 7.07 E/E' Med: 8.20 E/E' Lat: 7.80 PHT: 74.00 MVA PHT: 2.97 Decel [place]: 2.31 Aortic Valve AoV Pk Kel: 1.19 AoV Mn Kel: 0.92 AoV VTI: 0.29 AoV Pk Grad: 6.00 Aov Mn Grad: 4.00 PAPO Cont.VTI: 3.26 LVOT LVOT Pk Kel: 1.07 LVOT Mn Kel: 0.75 LVOT VTI: 0.22 LVOT Pk Grad: 5.00 LVOT Mn Grad: 3.00 LVOT Diam: 2.30 LVOT Area: 4.15 Diastolic Function MV Pk E: 0.58 MV Pk A: 0.77 E/A: 0.80 E'Medial: 7.07 E/E' Med: 8.20 E' Laterial: 7.51 E/E' Lat: 7.80 Right Ventricle TAPSE (mm): 27.70 TVS' Kel: 14.70 Tricuspid Valve TR Pk Kel: 2.18 TR Pk Grad: 19.00 RA Press: 3.00 RVSP: 22.00 Great Vessels Aorta Ao Root-2D: 3.70 2.0-3.7 cm Sinus of Valsalva: 3.70 2.0-3.5 cm Ao Asc: 3.60 2.1-3.4 cm Pulmonary Valve PV Pk Kel: 1.00 Peak PV Grad: 4.00 Updated in Other Vendor System with Status of Final Sal Seay MD electronically signed on 07/30/2023 3:04:40 PM with status of Final
[2023-07-28 07:17] LABS: Hematocrit 32.2 % (42.0-52.0); Hemoglobin 10.8 g/dl (14.0-18.0); Mean Corpuscular HGB Conc 33.5 g/dl (31.0-36.0); Mean Corpuscular Volume 98.5 fL (80.0-98.0); Mean Platelet Volume 11.1 fL (9.4-12.4); Platelet Count 120 X10*3/uL (160-400); Red Blood Count 3.27 X10*6/uL (4.60-5.80); White Blood Count 14.6 X10*3/uL (4.8-10.8)
[2023-07-28 07:30] LABS: Anion Gap 10 (12-20); Blood Urea Nitrogen 26 mg/dL (9-16); Calcium 8.3 mg/dL (8.4-10.2); Carbon Dioxide 24 mmol/L (22-29); Chloride 106 mmol/L (96-108); Creatinine Clr Calc Pharmacy 46.3; Estimated Glomerular Filt Rate 53; Glucose Random 105 mg/dL (60-115); Magnesium 1.9 mg/dL (1.6-2.6); Sodium 136 mmol/L (135-145)
[2023-07-28 09:02] VITALS: PULSE 73; RESP 20; O2SAT 98
[2023-07-28 09:46] VITALS: PULSE 68; RESP 20; O2SAT 98
[2023-07-28] MEDS: 0.9 % Sodium Chloride Flush 3 ML SYRINGE IVFLUSH ×3 (09:46→23:38)
[2023-07-28] MEDS: vancomycin HCL 1,000 MG in 0.9 % Sodium Chloride 250 ML 270 MG IV (09:46)
[2023-07-28] MEDS: Finasteride 5 MG TABLET PO (09:46)
--- NOTE | 2023-07-28 10:56 | P.PNIM_ITS ---
Subjective Subjective Date of Service: 07/28/23 Review of Systems Follow up cellulitis no pain Physical Exam Vital Signs: Vital Signs: Last Vital Signs Temp 97.4 F 07/28/23 06:57 Pulse 68 07/28/23 09:46 Resp 20 07/28/23 09:46 BP 134/64 07/28/23 06:57 Pulse Ox 98 07/28/23 09:46 O2 Del Method Room Air 07/28/23 09:46 O2 Flow Rate 1 07/28/23 09:02 BMI result Body Mass Index 28.6 Appearing in no acute distress lung sounds are clear to auscultation heart regular rate rhythm, clear S1, S2 positive bowel sounds, abdomen is soft, nontender neuro patient is alert x3, no focal deficits Left lower extremity with erythema, improved Objective Data Active Medications Acetaminophen (Acetaminophen 325 Mg Tablet) 650 mg PO Q6H PRN PRN Reason: Pain, Mild (Pain Scale 1-3) Amlodipine Besylate (Amlodipine Besylate 5 Mg Tablet) 5 mg PO BEDTIME COUNTS INCLUDE 234 BEDS AT THE [facility]; Protocol Aspirin (Aspirin 81 Mg Tab.Chew) 81 mg PO BEDTIME COUNTS INCLUDE 234 BEDS AT THE [facility] Finasteride (Finasteride 5 Mg Tablet) 5 mg PO DAILY COUNTS INCLUDE 234 BEDS AT THE [facility] Last Admin: 07/28/23 09:46 Dose: 5 mg Documented By: IVONNE Vancomycin HCl 1,000 mg/ (Sodium Chloride) 270 mls @ 270 mls/hr IV Q24H COUNTS INCLUDE 234 BEDS AT THE [facility] Last Infusion: 07/28/23 10:50 Dose: 0 mls/hr Documented By: IVONNE Omeprazole (Omeprazole 20 Mg Capsule.Dr) 20 mg PO DAILY PRN PRN Reason: Acid Reflux Ondansetron HCl (Ondansetron Hcl 4 Mg/2 Ml Vial) 4 mg IVPUSH Q8H PRN PRN Reason: Nausea and Vomiting Pharmacy Consult (Consult Rx Vancomycin Dosing) 1 each MISCELLANE DAILY PRN PRN Reason: Consult order Sodium Chloride (0.9 % Sodium Chloride Flush 3 Ml Syringe) 3 ml IVFLUSH QSHIFT COUNTS INCLUDE 234 BEDS AT THE [facility] Last Admin: 07/28/23 09:46 Dose: 3 ml Documented By: IVONNE Labs 07/28/23 05:57 07/28/23 05:57 Labs: Laboratory Results - last 24 hr 07/27/23 07/27/23 07/27/23 11:37 11:37 11:37 MCV MCH MCHC RDW Plt Count MPV Immature Gran % (Auto) Neut % (Auto) Lymph % (Auto) [place] % (Auto) Eos % (Auto) Baso % (Auto) Lymph # (Auto) [place] # (Auto) Eos # (Auto) Baso # (Auto) Abs Immat Gran (auto) Absolute Neuts (auto) Absolute Nucleated RBC Nucleated RBC % (auto) Neutrophils % (Manual) Band Neutrophils % Lymphocytes % (Manual) Monocytes % (Manual) Basophils % (Manual) Abs Neuts (Manual) Lymphocytes # (Manual) Monocytes # (Manual) Basophils # (Manual) Platelet Estimate Plt Morphology Comment RBC Morphology Ovalocytes [place] Cells Acanthocytes (Spur) ESR 23 H D-Dimer High Sensitivty 678 Anion Gap Estim Creat Clear Calc Estimated GFR Random Glucose Lactic Acid 1.6 Calcium Magnesium Total Bilirubin AST ALT Alkaline Phosphatase C-Reactive Protein B-Natriuretic Peptide Total Protein Albumin 07/27/23 07/27/23 07/27/23 11:37 11:37 11:37 MCV 97.5 MCH 33.1 H MCHC 33.9 RDW 13.9 Plt Count 137 L MPV 10.3 Immature Gran % (Auto) Cancelled Neut % (Auto) Cancelled Lymph % (Auto) Cancelled [place] % (Auto) Cancelled Eos % (Auto) Cancelled Baso % (Auto) Cancelled Lymph # (Auto) Cancelled [place] # (Auto) Cancelled Eos # (Auto) Cancelled Baso # (Auto) Cancelled Abs Immat Gran (auto) Cancelled Absolute Neuts (auto) Cancelled Absolute Nucleated RBC 0.000 Nucleated RBC % (auto) 0.0 Neutrophils % (Manual) 92 H Band Neutrophils % 3 Lymphocytes % (Manual) 3 L Monocytes % (Manual) 1 L Basophils % (Manual) 1 Abs Neuts (Manual) 17.8 H Lymphocytes # (Manual) 0.6 L Monocytes # (Manual) 0.2 Basophils # (Manual) 0.2 Platelet Estimate DECREASED Plt Morphology Comment NORMAL RBC Morphology NOTED Ovalocytes 1+ (5-14) [place] Cells 2+ (3-5) Acanthocytes (Spur) 1+ (0-2) ESR D-Dimer High Sensitivty Anion Gap 11 L Estim Creat Clear Calc 40.0 Estimated GFR 45 Random Glucose 193 H Lactic Acid Calcium 8.4 Magnesium 1.3 L* Total Bilirubin 0.6 AST 16 ALT 11 Alkaline Phosphatase 38 L C-Reactive Protein 20.00 H B-Natriuretic Peptide 248 H Total Protein 6.5 Albumin 3.7 07/28/23 07/28/23 05:57 05:57 MCV 98.5 H MCH 33.0 MCHC 33.5 RDW 14.0 Plt Count 120 L MPV 11.1 Immature Gran % (Auto) Neut % (Auto) Lymph % (Auto) [place] % (Auto) Eos % (Auto) Baso % (Auto) Lymph # (Auto) [place] # (Auto) Eos # (Auto) Baso # (Auto) Abs Immat Gran (auto) Absolute Neuts (auto) Absolute Nucleated RBC 0.000 Nucleated RBC % (auto) 0.0 Neutrophils % (Manual) Band Neutrophils % Lymphocytes % (Manual) Monocytes % (Manual) Basophils % (Manual) Abs Neuts (Manual) Lymphocytes # (Manual) Monocytes # (Manual) Basophils # (Manual) Platelet Estimate Plt Morphology Comment RBC Morphology Ovalocytes Toni Cells Acanthocytes (Spur) ESR D-Dimer High Sensitivty Anion Gap 10 L Estim Creat Clear Calc 46.3 Estimated GFR 53 Random Glucose 105 Lactic Acid Calcium 8.3 L Magnesium 1.9 Total Bilirubin AST ALT Alkaline Phosphatase C-Reactive Protein B-Natriuretic Peptide Total Protein Albumin Assessment and Plan (1) Cellulitis of left leg: Status: Acute Plan 83 year old man admitted with cellulitis to right LE Cellulitis, acute, improving continue Vancomycin ID consult pending elevate extremity pain management Venous Doppler ultrasound results pending Shortness of breath. Resolved No hypoxia Elevated D-dimer Perfusion scan with very low probability of PE Leukocytosis Secondary to cellulitis No sepsis STEPHENIE on CKD stage III. Resolved Treated with IV fluids HTN Stable blood pressure Hold home antihypertensives for now to avoid hypotension GERD PPI HLD Hold statin for now BPH Continue finasteride DVT prophylaxis with pneumatic compression boots Attending Dr. Green Full code Patient requires continued hospitalization due to for treatment of acute cellulitis requiring IV antibiotics Time Spent With Patient Time: Total time managing care of this patient today ____ minutes. Quality Stroke Does the patient have a stroke diagnosis?: No VTE Prior VTE?: No VTE Risk Level:: Medical - moderate - high VTE Device Contraindication: N/A - Device Ordered VTE Drug Contraindication: Treatment Not Indicated
--- NOTE | 2023-07-28 14:05 | P.CDIM_ITS ---
PROVIDER RESPONSE TEXT: To clarify, the appropriate diagnosis supported by the clinical indicators: Hypomagnesemia QUERY TEXT: PHYSICIAN'S DOCUMENTATION REQUEST Date of Query: 07/28/2023 08:29 AM EDT Patient Name: Narendra Batista Admit Date: 07/27/2023 Dear Helen Fam, A review of the medical record indicates additional documentation may be needed. Please review below and update the documentation accordingly. Clinical Indicators: LAB FINDINGS: magnesium 1.3 L IV magnesium sulfate Based on the above, is there a diagnosis that correlates with these lab findings: Hypomagnesemia Labs indicate a diagnosis of (please specify) Other (explain)Clinically unable to determine (explain)Thank you, Merari Nino, CCS, CDIS Use of terms such as suspected, likely, concern for, or probable (associated with a specific diagnosi s that is being evaluated, monitored, or treated as if it exists) are acceptable and can be coded in the inpatient se tting, when documented at the time of discharge. Please use your independent medical judgment in providing your response. THIS QUERY IS PART OF THE PERMANENT MEDICAL RECORD
[2023-07-28 15:33] VITALS: BP 151/69; PULSE 68; RESP 20; TEMP 36.6; O2SAT 100
--- NOTE | 2023-07-28 15:52 | MHC.CM.PN ---
pt lives with and son had no servcies and does not expect to need servcies when dcd pt has own ride home
[2023-07-28 19:34] VITALS: BP 135/59; PULSE 74; RESP 18; TEMP 36.2; O2SAT 98
[2023-07-28] MEDS: Aspirin 81 MG TAB.CHEW PO (20:14)
[2023-07-28] MEDS: amLODIPine Besylate 5 MG TABLET PO (20:14)
[2023-07-29 02:51] VITALS: BP 119/58; PULSE 60; RESP 18; TEMP 36.2; O2SAT 97
[2023-07-29 07:09] VITALS: BP 150/64; PULSE 65; RESP 18; TEMP 36.6; O2SAT 97
[2023-07-29 07:26] LABS: Creatinine Clr Calc Pharmacy 50.2; Estimated Glomerular Filt Rate 59
--- NOTE | 2023-07-29 07:38 | HE.PHANOTE ---
VANCOMYCIN DOSING ADJSUTMENT BASED ON SCR DOSE CONTINUED AT 1000 Q24H. NEXT TROUGH 07/30 @ 0600
[2023-07-29] MEDS: Finasteride 5 MG TABLET PO (08:28)
[2023-07-29] MEDS: 0.9 % Sodium Chloride Flush 3 ML SYRINGE IVFLUSH (08:28)
[2023-07-29] MEDS: vancomycin HCL 1,000 MG in 0.9 % Sodium Chloride 250 ML 270 MG IV (08:29)
--- NOTE | 2023-07-29 09:28 | PM.DS ---
DS: Providers Provider Date of Service: 07/29/23 Date of admission: 07/27/23 12:57 Primary care physician: Trip Blanton MD Consults: 07/27/23 12:59 Consult to Infectious Diseases Routine Consulting Provider: [facility] Infectious Disease Reason for consultation: cellulitis DS: Diagnosis Discharge Diagnosis (1) Cellulitis of left leg: Status: Acute DS: Summary Hospital Course Hospital Course: history and physical as per admitting provider. 83-year-old man presented to the ER with complaints of worsening redness, swelling and pain to left lower extremity.? He reports that started yesterday.? He felt some itching to the leg and then suddenly developed redness.? He denied any fever, chills, nausea, vomiting, diarrhea, recent travel, sick contacts.? He denies any injury.? He reported a couple years ago he may have had something similar but he does not remember.? He is pretty independent continues to drive.? He was noted to have elevated white blood cell count of 18.7 with no fever.? Creatinine elevated at 1.48, magnesium 1.3. In the ER, he received a dose of vancomycin and IV magnesium.? He will be admitted for further management and treatment of acute cellulitis. 83-year-old man treated for cellulitis to left lower extremity. Patient initially admitted with elevated white blood cell count, erythema and mild edema to left lower extremity. Venous Doppler ultrasound negative for DVT. He was started on IV vancomycin, seen evaluated by Infectious Disease. Blood cultures grew coag-negative staph 1/2. Patient will continue total 10 days of doxycycline and Augmentin. He did have an episode of some shortness of breath and his D-dimer was elevated in the 600s. V/Q scan showed very low probability of PE and he never developed any hypoxia for required oxygen. STEPHENIE on CKD. Resolved with IV fluids Hypertension. Stable blood pressure. Continue home antihypertensives GERD. Ppi Hyperlipidemia. Statin BPH continue finasteride Time Spent with Patient Time attestation: Total time managing care of this patient today ____ minutes. Discharge coordination time: Greater than 30 minutes Quality: Safe Use of Opioids Does Pt have an Active Cancer Diagnosis on the Problem List?: No Quality: Stroke Does the patient have a stroke diagnosis?: No Physical Exam Vital Signs: Vital Signs: Last Vital Signs Temp 98 F 07/29/23 07:09 Pulse 65 08/30/23 07:09 Resp 18 07/29/23 07:09 BP 150/64 H 07/29/23 07:09 Pulse Ox 97 07/29/23 07:09 O2 Del Method Room Air 07/29/23 07:09 O2 Flow Rate 1 07/28/23 09:02 BMI result Body Mass Index 28.6 Appearing in no acute distress head is normocephalic atraumatic eyes pupils are PERRLA sclera is anicteric mouth throat mucous membranes are intact and moist neck is supple no lymphadenopathy, no JVD noted lung sounds are clear to auscultation heart regular rate rhythm, clear S1, S2 positive bowel sounds, abdomen is soft, nontender neuro patient is alert x3, no focal deficits Improving erythema to left lower extremity DS: Data Data Completed and Pending Labs on day of discharge: Laboratory Results - last 24 hr 07/29/23 05:39 Creatinine 1.18 Estim Creat Clear Calc 50.2 Estimated GFR 59 Preliminary micro results at discharge 07/27/23 12:24 Blood Culture - Preliminary Blood - Venous No growth after 24 hours. Discharge Plan Discharge Anticipated Discharge Date/Time: 07/29/23 09:19 Patient Disposition: Home, Self-Care Discharge Diagnosis: Cellulitis Referrals: Trip Blanton MD [Primary Care Provider] - 1 Week Discharge Medications: New amoxicillin-pot clavulanate 875-125 mg tablet 1 tab PO BID Qty: 20 0RF doxycycline hyclate 100 mg tablet 100 mg PO BID Qty: 20 0RF Continued amlodipine 5 mg tablet 5 mg PO BEDTIME simvastatin 40 mg tablet 40 mg PO BEDTIME pantoprazole 40 mg tablet,delayed release (DR/EC) 40 mg PO DAILY PRN (Reason: Acid Reflux) aspirin 81 mg Tablet,Chewable 81 mg PO BEDTIME finasteride 5 mg tablet 5 mg PO DAILY Discharge Orders: Discharge Order (Routine); Ordered 07/29/23 Ordered By: Helen Fam Diet: Advance to usual diet Activity on Discharge: As tolerated Stand Alone Forms: Patient Portal Discharge page Care Plan Goals: monitor for any worsening redness in the left lower extremity Health Concerns: cellulitis Plan of Treatment: Follow-up with primary care provider as needed Take all medications as prescribed You will be on 2 antibiotics for the cellulitis in the left lower extremity for a total 10 days Assessment: See discharge summary
--- NOTE | 2023-07-29 10:16 | MHC.CM.PN ---
PATIENT IS DC HOME TODAY - SELF CARE. RN AWARE OF PLAN. IMM 07/28 PREVIOUSLY COMPLETED
== END 2023-07-29 10:35 | disposition home or self-care (01) | DRG 602 ==
LOC: HO.ED 12:29 → HO.EDOVER 13:10 → HO.S3 16:13
PROVIDERS: Physician Assistant; Admitting Provider Nurse Practitioner Acute Care; Emergency Provider Emergency Medicine; PCP Family Medicine; Visit Provider Nurse Practitioner Acute Care
DX: L03.115 Cellulitis of right lower limb (principal); J96.01 Acute respiratory failure with hypoxia; I12.9 Hypertensive chronic kidney disease with stage 1 through stage 4 chronic kidney disease, or unspecified chronic kidney disease; N17.9 Acute kidney failure, unspecified; N18.30 Chronic kidney disease, stage 3 unspecified; E83.42 Hypomagnesemia; N40.0 Benign prostatic hyperplasia without lower urinary tract symptoms; E78.5 Hyperlipidemia, unspecified; Z79.82 Long term (current) use of aspirin; Z79.899 Other long term (current) drug therapy
CPT/HCPCS: 36415; 71045; 71250; 78580; 80048; 80053; 82565; 83605; 83735; 83880; 84484; 85007; 85027; 85379; 85652; 86140; 87040; 87147; 87205; 93005; 93306; 93971; 99221; 99285; A9540; J1650; J3370; J3371; J3475; Q9957

== ENCOUNTER 2023-07-27 12:57 | Outpatient (BNV) | payer MEDICARE, SELFPAY | END 2023-07-28 07:00 | PROVIDERS: Admitting Provider Nurse Practitioner Acute Care; Emergency Provider Emergency Medicine; PCP Family Medicine; Visit Provider Internal Medicine Cardiovascular Disease | DX: I51.7 Cardiomegaly (principal) | CPT/HCPCS: 93306 ==

== ENCOUNTER → 2023-07-27 12:57 | Outpatient (BNV) | payer MEDICARE, SELFPAY | PROVIDERS: Admitting Provider Nurse Practitioner Acute Care; Emergency Provider Emergency Medicine; PCP Family Medicine; Visit Provider Nurse Practitioner Acute Care | DX: L03.116 Cellulitis of left lower limb (principal) | CPT/HCPCS: 99223; 99232; 99239; 99499 ==

== ENCOUNTER 2024-03-01 06:03 | Outpatient (REF) | payer MEDICARE, SELFPAY ==
[2024-03-01 07:44] LABS: Alanine Aminotransferase 11 U/L (0-40); Anion Gap 9 (12-20); Aspartate Amino Transferase 12 U/L (5-37); Blood Urea Nitrogen 24 mg/dL (9-16); Carbon Dioxide 25 mmol/L (22-29); Chloride 114 mmol/L (96-108); Estimated Glomerular Filt Rate 56; Sodium 144 mmol/L (135-145)
== END 2024-03-01 06:04 | disposition home or self-care (01) ==
LOC: HO.LAB 06:03
PROVIDERS: PCP Family Medicine; Visit Provider Family Medicine
DX: I10 Essential (primary) hypertension (principal); E78.00 Pure hypercholesterolemia, unspecified; Z79.899 Other long term (current) drug therapy
CPT/HCPCS: 36415; 80051; 82550; 82565; 84450; 84460; 84520

== ENCOUNTER 2024-04-07 06:00 | Outpatient (REF) | payer MEDICARE, SELFPAY ==
[2024-04-07 06:19] LABS: MANUAL DIFF FLAG NO
[2024-04-07 08:24] LABS: Basophils Percent Auto 0.2 % (0-2); Eosinophils Absolute Auto 0.2 X10*3/uL (0.0-0.4); Eosinophils Percent Auto 2.9 % (0-4); Hematocrit 38.8 % (42.0-52.0); Hemoglobin 12.2 g/dl (14.0-18.0); Imm Gran Abs Auto 0.01 X10*3/uL (0.00-0.03); Imm Gran Pct Auto 0.2 % (0.0-0.4); Lymphocytes Absolute Auto 1.7 X10*3/uL (1.2-4.9); Lymphocytes Percent Auto 30.2 % (20-40); Mean Corpuscular HGB Conc 31.4 g/dl (31.0-36.0); Mean Corpuscular Hemoglobin 33.3 pg (27.0-33.0); Mean Platelet Volume 10.2 fL (9.4-12.4); Monocytes Absolute Auto 0.5 X10*3/uL (0.1-1.2); Monocytes Percent Auto 9.3 % (2-11); Neutrophils Absolute Auto 3.2 x10*3/uL (2.0-8.3); Neutrophils Percent Auto 57.2 % (45-73); Platelet Count 133 X10*3/uL (160-400); Red Blood Count 3.66 X10*6/uL (4.60-5.80); Red Cell Distribution Width 13.9 % (11.0-16.0); White Blood Count 5.6 X10*3/uL (4.8-10.8)
== END 2024-04-07 06:01 | disposition home or self-care (01) ==
LOC: HO.LAB 06:00
PROVIDERS: Family Medicine; PCP Internal Medicine; Visit Provider Internal Medicine
DX: R06.02 Shortness of breath (principal)
CPT/HCPCS: 36415; 85025

== ENCOUNTER → 2024-05-11 10:49 | Outpatient (REF) | payer MEDICARE, SELFPAY ==
--- NOTE | 2024-05-11 10:52 | CA_ITS ---
Acquisition Time: 2024-05-11 11:06:24 Total Exercise Time: 00:04:16 Test Indications: SOB Medications: SEE H Protocol: KRISTINA Max HR: 120 BPM 88% of Pred: 135 BPM Max BP: 190/064 mmHG Max Work Load: 5.7 METS Exercise stress test exercise 4 min 16 sec of Kristina protocol achieving 88% MPHR, with moderate to severe SOB,. no chest discomfort, with isolated PVCs and PACs, ventricular bigeminy, with resting HTN, normotensive response to exercise. withdownslopping noted in V5-V6. Breathing returned to baseline with rest. Echo images obtained at rest and immediately post peak exercise. Definity contrast used. Test reviewed [facility] Dr. Amaral. Referred By: Trip Blanton Overread By: Tianna Turpin
== END ==
LOC: HO.CARD 10:49
PROVIDERS: PCP Family Medicine; Visit Provider Family Medicine
DX: R06.02 Shortness of breath (principal); I10 Essential (primary) hypertension; R53.83 Other fatigue
CPT/HCPCS: 93350; Q9957

== ENCOUNTER → 2024-05-11 10:52 | Outpatient (BNV) | payer MEDICARE, SELFPAY | PROVIDERS: PCP Family Medicine; Visit Provider Nurse Practitioner | DX: I10 Essential (primary) hypertension (principal); R06.02 Shortness of breath; I49.3 Ventricular premature depolarization; I49.1 Atrial premature depolarization; I27.20 Pulmonary hypertension, unspecified; R93.1 Abnormal findings on diagnostic imaging of heart and coronary circulation | CPT/HCPCS: 93016; 93018; 93350; 93352 ==

== ENCOUNTER 2024-05-16 05:58 | Outpatient (REF) | payer MEDICARE, SELFPAY ==
[2024-05-16 08:56] LABS: Prostate Specific Antigen 0.74 ng/mL (<0.05-4.0)
== END 2024-05-16 05:59 | disposition home or self-care (01) ==
LOC: HO.LAB 05:58
PROVIDERS: PCP Family Medicine; Visit Provider Urology
DX: N40.1 Benign prostatic hyperplasia with lower urinary tract symptoms (principal); Z12.5 Encounter for screening for malignant neoplasm of prostate
CPT/HCPCS: 36415; 84153

== ENCOUNTER 2024-05-17 14:43 | Outpatient (AMB) | payer MEDICARE, SELFPAY ==
[2024-05-17 14:52] VITALS: BP 130/68; PULSE 81; BMI 29.0
--- NOTE | 2024-05-17 14:52 | A.OFFVIS_ITS ---
Vital Signs 05/17/24 14:52 Height 5 ft 9 in Weight 196 lb 3.382 oz BMI 29.0 BP 130/68 Blood Pressure Location Lt brachial Position Sitting Pulse 81 Pulse Source Monitor Intake Visit Reasons: Dr. Dick RQ Allergies No Known Allergies Allergy (Unverified 07/27/23 11:07) Medication List - Last Reconciled 05/17/24 by Jonh Amaral MD amlodipine 5 mg PO BEDTIME aspirin 81 mg PO BEDTIME finasteride 5 mg PO DAILY hydralazine 25 mg PO BID simvastatin 40 mg PO BEDTIME tamsulosin 0.8 mg PO DAILY HPI Comments Details: Narendra is here for consultation regarding shortness of breath. He states that recently he is noticing exertional shortness of breath and can barely do anything. No clear-cut chest pains. No known coronary disease myocardial infarction or cardiomyopathy. He is on medications for hypertension and dyslipidemia. No documented coronary disease or myocardial infarction. [facility] Medical History (Updated 05/17/24 @ 15:09 by Jonh Amaral MD) GERD (gastroesophageal reflux disease) BPH (benign prostatic hyperplasia) Hyperlipidemia Hypertension Family History (Updated 05/17/24 @ 15:08 by Jonh Amaral MD) Father No problems noted. Mother No problems noted. Social History (Updated 05/17/24 @ 15:08 by Jonh Amaral MD) Household Members: Spouse and Children Housing: House Do you presently have visiting nurse or other home services: No Alcohol intake: current Alcohol intake frequency: holidays/special occasions only Patient Tobacco Use Status: Former Tobacco user service: No Review of Systems Const Denies weakness ENT Denies dizziness Card Denies chest pain, Denies chest pain with activity, Denies syncope, Denies rapid heart rate, Denies pedal edema, Denies edema, Denies leg edema, Denies lightheadedness, Denies palpitations, Denies dyspnea, Denies dyspnea on exertion and Denies orthopnea Resp Denies cough, Denies dyspnea and Denies dyspnea on exertion GI Denies hematochezia and Denies change in stool character Musc Denies abnormal gait, Denies muscle cramps, Denies muscle weakness, Denies numbness, Denies radiating pain into limb and Denies tingling Neuro Denies abnormal gait, Denies dizziness, Denies syncope, Denies numbness, Denies tingling and Denies weakness Endo Denies palpitations Physical Exam Vital Signs: Last Vital Signs Pulse 81 05/17/24 14:52 BP 130/68 05/17/24 14:52 BMI result Body Mass Index 29.0 Const General: comfortable and no acute distress Orientation/consciousness: patient oriented x3 HEENT Other: Unremarkable Head: Yes normal to inspection Neck Neck: Yes normal visual inspection Chest Chest palpation & inspection: normal inspection of the chest Resp Auscultation: clear to auscultation bilaterally Cardio Palpation: normal PMI Heart sounds: S1 normal heart sound present, S2 normal heart sound present, no gallops, no murmurs and no rubs GI Palpation (GI): Soft to palpation Back/Spine/Pelvis Other: unremarkable Skin General skin exam: no rashes or lesions noted Neuro General: patient oriented x3 Extrem General: Yes normal to inspection Psych Mental Status: mental status grossly normal Office Procedures EKG Details: EKG with sinus rhythm at 81/Min; inferior downsloping STs with T inversions. Anterolateral nonspecific ST-T changes. Cannot exclude old septal infarct. [id number], Complete Assessment & Plan Assessment & Plan (1) SOB (shortness of breath): Code(s): R06.02 - Shortness of breath Category: Medical (2) Abnormal EKG: Code(s): R94.31 - Abnormal electrocardiogram [ECG] [EKG] Category: Medical (3) Abnormal stress test: Code(s): R94.39 - Abnormal result of other cardiovascular function study Category: Medical Plan Resting EKG as described above. In the transthoracic echocardiogram, LVEF is 50-55% without any overt wall motion abnormalities. No significant valvular findings. Mildly increased RV size. In the exercise stress echocardiogram, able to exercise for 5.7 Mets with moderate to severe shortness of breath. Downsloping STs in V5/V6. Suggestion of inferolateral hypokinesis on the post peak images as well as mild pulmonary hypertension. Findings discussed with patient. As he seems to have significant shortness of breath, could have hemodynamically significant coronary disease based on the above findings. Will arrange a diagnostic catheterization. Patient is agreeable. Orders: Orders Cardiac Cath LT Diagnostic Today I25.10 - Atherosclerotic heart disease of [place] coronary artery without angina pectoris Complete Blood Count no Diff Today R06.02 - Shortness of breath Prothrombin Time INR Today R06.02 - Shortness of breath Basic Metabolic Panel Today R06.02 - Shortness of breath Medications: Discontinued amoxicillin-pot clavulanate 875-125 mg Discontinued Reason: Patient no longer taking 1 tab PO BID 20 tabs 0RF doxycycline hyclate Discontinued Reason: Patient no longer taking 100 mg PO BID 20 tabs 0RF Coding Level of Care Code New Pt Level 4 (65043) Diagnoses SOB (shortness of breath) R06.02 Abnormal EKG R94.31 Abnormal stress test R94.39 CPT Codes EKG - CPT: 21730-[id number], Complete ([id number])
== END 2024-05-17 15:13 | disposition home or self-care (01) ==
PROVIDERS: PCP Family Medicine; Visit Provider Internal Medicine
DX: R06.02 Shortness of breath (principal); R94.31 Abnormal electrocardiogram [ECG] [EKG]; R94.39 Abnormal result of other cardiovascular function study
CPT/HCPCS: 93010; 99214

== ENCOUNTER → 2024-05-17 14:43 | Outpatient (BNVA) | payer MEDICARE, SELFPAY | PROVIDERS: PCP Family Medicine; Visit Provider Internal Medicine | DX: R06.02 Shortness of breath (principal); R94.31 Abnormal electrocardiogram [ECG] [EKG]; R94.39 Abnormal result of other cardiovascular function study | CPT/HCPCS: 93005; 99212 ==

== ENCOUNTER 2024-05-23 06:00 | Outpatient (REF) | payer MEDICARE, SELFPAY ==
[2024-05-23 07:52] LABS: Hematocrit 36.8 % (42.0-52.0); Hemoglobin 12.2 g/dl (14.0-18.0); Mean Corpuscular HGB Conc 33.2 g/dl (31.0-36.0); Mean Corpuscular Hemoglobin 33.3 pg (27.0-33.0); Mean Corpuscular Volume 100.5 fL (80.0-98.0); Mean Platelet Volume 10.4 fL (9.4-12.4); Platelet Count 176 X10*3/uL (160-400); Red Blood Count 3.66 X10*6/uL (4.60-5.80); White Blood Count 6.1 X10*3/uL (4.8-10.8)
[2024-05-23 07:57] LABS: INTERNATIONAL NORM RATIO 0.9 (0.9-1.1); Prothrombin Time 11.3 SEC (11.1-13.3)
[2024-05-23 08:17] LABS: Anion Gap 12 (12-20); Blood Urea Nitrogen 27 mg/dL (9-16); Calcium 8.7 mg/dL (8.4-10.2); Carbon Dioxide 23 mmol/L (22-29); Chloride 110 mmol/L (96-108); Estimated Glomerular Filt Rate 55; Glucose Random 101 mg/dL (60-115); Potassium 4.3 mmol/L (3.3-5.1); Sodium 141 mmol/L (135-145)
== END 2024-05-23 06:01 | disposition home or self-care (01) ==
LOC: HO.LAB 06:00
PROVIDERS: Absent Provider Internal Medicine Cardiovascular Disease; PCP Family Medicine; Visit Provider Internal Medicine
DX: R06.02 Shortness of breath (principal)
CPT/HCPCS: 36415; 80048; 85027; 85610

== ENCOUNTER → 2024-06-14 23:59 | Outpatient (BNV) | payer MEDICARE, SELFPAY | PROVIDERS: PCP Family Medicine; Visit Provider Internal Medicine Cardiovascular Disease | DX: I25.118 Atherosclerotic heart disease of native coronary artery with other forms of angina pectoris (principal) | CPT/HCPCS: 92928; 92978; 93458; 99152 ==

== ENCOUNTER 2024-06-16 10:50 | Emergency (ER) | payer MEDICARE, SELFPAY ==
--- NOTE | ~2024-06-16 | CT_ITS ---
EXAMINATION: CT ANGIOGRAM OF THE CHEST WITH AND WITHOUT CONTRAST (CT PULMONARY ANGIOGRAM FOR PE) CLINICAL INFORMATION: Reason for Exam LAD stent 06/14/24, SOB x2 days R/O PE COMPARISON: Chest CT from 07/27/2023. TECHNIQUE: Prior to contrast administration, noncontrast localization images were obtained. Subsequently, multidetector volumetric imaging was performed from the thoracic inlet to below the diaphragms following the administration of 65 mL Omnipaque 350 intravenous contrast. No contrast reaction reported. Sagittal, coronal, and MIP oblique sagittal reformatted images were obtained on the CT workstation, uploaded to PACS, and reviewed. This CT examination was performed using dose optimization techniques as appropriate, variously including the following: *Automated exposure control *Adjustment of mA and/or kV according to patient size (this includes techniques or standardized protocols for targeted exams where dose is matched to indication/reason for exam; i.e. extremities or head) *Use of iterative reconstruction technique DLP: Total exam dose-length product 293 mGy-cm FINDINGS: LUNGS AND PLEURA: The bronchial miranda are chronically mildly thickened. No pulmonary consolidation, pleural effusion or pneumothorax. Chronic findings include multiple old calcified bilateral granulomas. No interval development of a suspicious nodule or mass. QUALITY OF STUDY/CONTRAST BOLUS: Satisfactory. PULMONARY ARTERIES: The pulmonary arteries are normal in size. No embolic filling defects within the main, lobar or segmental vessels. OTHER CARDIOVASCULAR: Atherosclerotic calcifications of coronary arteries and stent of the left anterior descending coronary artery. Mild cardiomegaly. No pericardial effusion. There is atherosclerotic calcification of the thoracic aorta without aneurysm or dissection. MEDIASTINUM/LOWER NECK: No mediastinal mass. The thyroid gland is grossly unremarkable. The esophagus has normal wall thickness. There is either a very small hiatal hernia or presence of small amount of gas in the esophageal vestibule that mimics the appearance of a hernia. LYMPHATICS: No pathologic sized axillary, hilar or mediastinal lymph nodes. UPPER ABDOMEN: No acute pneumonia. 4 cm simple cyst of the upper pole of the left kidney is partially included in tmzsf-ic-kehc. No renal imaging follow-up is recommended for a simple cyst. OSSEOUS STRUCTURES: No acute or suspicious osseous abnormality. 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 Probable old trauma of the medial right clavicle and osteoarthritis of the right sternoclavicular joint. CT/CT angio chest PE protocol IMPRESSION: * No evidence of pulmonary embolism. * Old granulomatous disease. No acute pulmonary disease compared to 07/27/2023. * Mild cardiomegaly, atherosclerotic calcification of coronary arteries and stent of the left anterior descending coronary artery.
--- NOTE | 2024-06-16 10:56 | ED_ITS ---
HPI - SOB/Dyspnea General Chief Complaint: Dyspnea Stated Complaint: SOB Time Seen by Provider: 06/16/24 10:56 Source: patient and other (PCP, Dr. Trip Arenas) Mode of arrival: ambulatory Limitations: no limitations History of Present Illness ED Provider: Dr. Hawk Lion HPI Narrative: 83-year-old male with a history of GERD, BPH, hyperlipidemia, hypertension, coronary artery disease with recent positive stress test and cardiac catheterization with LAD stent Thursday06/14/2024 (2 days prior) at [facility]. Patient's only new medication was Brilinta. He states that last night had gradual onset of shortness of breath. He states that the shortness of breath is gotten worse. He has significant dyspnea on exertion. He denied chest pain, fever, chills, cough, nausea, vomiting or diarrhea. I did review the patient's Cardiology note 05/17/[address] Amaral. Patient was evaluated for dyspnea on exertion and shortness of breath. The patient had transesophageal echocardiogram with an LVEF of 50-55% with no wall motion abnormalities. He had a exercise stress echocardiogram which showed downsloping STs in V5 through V6 which was concerning for inferior lateral hypokinesis which led to him getting his cardiac catheterization catheterization Related Data Home Medications ?Medication ?Instructions ?Recorded ?Confirmed amlodipine 5 mg tablet 5 mg PO BEDTIME 07/27/23 05/17/24 aspirin 81 mg chewable tablet 81 mg PO BEDTIME 07/27/23 05/17/24 finasteride 5 mg tablet 5 mg PO DAILY 07/27/23 05/17/24 simvastatin 40 mg tablet 40 mg PO BEDTIME 07/27/23 05/17/24 hydralazine 25 mg tablet 25 mg PO BID 05/17/24 05/17/24 tamsulosin 0.4 mg capsule 0.8 mg PO DAILY 05/17/24 05/17/24 Allergies Allergy/AdvReac Type Severity Reaction Status Date / Time No Known Allergies Allergy Verified 06/16/24 11:00 [facility] Past Medical History Medical History (Updated 06/16/24 @ 15:48 by Hawk Lion MD) GERD (gastroesophageal reflux disease) BPH (benign prostatic hyperplasia) Hyperlipidemia Hypertension Family History Family History (Updated 05/17/24 @ 15:08 by Jonh Amaral MD) Father No problems noted. Mother No problems noted. Social History Social History (Updated 05/17/24 @ 15:08 by Jonh Amaral MD) Household Members: Spouse and Children Housing: House Do you presently have visiting nurse or other home services: No Alcohol intake: current Alcohol intake frequency: holidays/special occasions only Patient Tobacco Use Status: Former Tobacco user Smoked in Last 30 Days: No Use of substances other than those prescribed or required for medical reasons: No Advance Directives: No Advance Directives Information Provided: Yes Do you have a plan to hurt others: No Plan service: No Physical Exam 2 Vital Signs: Vital Signs: Last Vital Signs Temp 98.2 F 06/16/24 13:01 Pulse 64 06/16/24 13:01 Resp 14 06/16/24 13:01 BP 167/72 H 06/16/24 13:01 Pulse Ox 100 06/16/24 13:01 O2 Del Method Room Air 06/16/24 13:01 BMI result Body Mass Index 28.5 Medications Administered Discontinued Medications Generic Name Dose Route Start Last Admin Trade Name Freq PRN Reason Stop Dose Admin Iohexol 65 ml 06/16/24 12:26 06/16/24 12:26 Iohexol 350 Mg/Ml 100 Ml Infus..Btl IV 06/16/24 12:27 65 ml ONCE ONE Administration Medical Decision Making Lab Data 06/16/24 11:13 06/16/24 11:13 Labs: Lab Results 06/16/24 06/16/24 06/16/24 Range/Units 11:13 11:33 14:35 WBC 6.1 (4.8-10.8) X10*3/uL RBC 3.55 L (4.60-5.80) X10*6/uL Hgb 12.0 L (14.0-18.0) g/dl Hct 35.2 L (42.0-52.0) % MCV 99.2 H (80.0-98.0) fL MCH 33.8 H (27.0-33.0) pg MCHC 34.1 (31.0-36.0) g/dl RDW 13.5 (11.0-16.0) % Plt Count 155 L (160-400) X10*3/uL MPV 9.9 (9.4-12.4) fL Immature Gran % (Auto) 0.5 H (0.0-0.4) % Neut % (Auto) 68.2 (45-73) % Lymph % (Auto) 21.7 (20-40) % [place] % (Auto) 8.1 (2-11) % Eos % (Auto) 1.2 (0-4) % Baso % (Auto) 0.3 (0-2) % Lymph # (Auto) 1.3 (1.2-4.9) X10*3/uL [place] # (Auto) 0.5 (0.1-1.2) X10*3/uL Eos # (Auto) 0.1 (0.0-0.4) X10*3/uL Baso # (Auto) 0.0 (0.0-0.2) X10*3/uL Abs Immat Gran (auto) 0.03 (0.00-0.03) X10*3/uL Absolute Neuts (auto) 4.2 (2.0-8.3) x10*3/uL Absolute Nucleated RBC 0.000 (0.0-0.012) X10*3/uL Nucleated RBC % (auto) 0.0 (0.0-0.2) /100WBC PT 11.5 (11.1-13.3) SEC INR 0.9 (0.9-1.1) APTT 28.6 (26.0-36.8) SEC Sodium 144 (135-145) mmol/L Potassium 4.0 (3.3-5.1) mmol/L Chloride 112 H (96-108) mmol/L Carbon Dioxide 23 (22-29) mmol/L Anion Gap 13 (12-20) BUN 20 H (9-16) mg/dL Creatinine 1.33 (0.5-1.4) mg/dL Estim Creat Clear Calc 44.4 Estimated GFR 51 Random Glucose 178 H (60-115) mg/dL Calcium 8.6 (8.4-10.2) mg/dL Magnesium 2.0 (1.6-2.6) mg/dL Total Bilirubin 0.6 (0.0-1.0) mg/dL AST 18 (5-37) U/L ALT 13 (0-40) U/L Alkaline Phosphatase 52 (39-117) U/L Total Creatine Kinase 141 (38-174) U/L Troponin I High Sens 31.7 D 31.6 (<3.5-35.0) ng/L B-Natriuretic Peptide 172 H (<100) pg/mL Total Protein 6.3 L (6.5-8.0) g/dL Albumin 4.0 (3.5-5.0) g/dL Lipase 24 (8-78) U/L Influenza Type A (PCR) NEGATIVE (Negative) Influenza Type B (PCR) NEGATIVE (Negative) RSV RNA Qual (PCR) NEGATIVE (Negative) SARS-CoV-2 RNA (RT-PCR) NEGATIVE (Negative) Radiology Impression Discussion of test interpretation with radiology: I have reviewed the radiologist's reading. Radiologist Impression: CT angio chest PE protocol IMPRESSION: * No evidence of pulmonary embolism. * Old granulomatous disease. No acute pulmonary disease compared to 07/27/2023. * Mild cardiomegaly, atherosclerotic calcification of coronary arteries and stent of the left anterior descending coronary artery. Dictated By: Prateek Solano MD Discharge Plan Discharge Clinical Impression: Acute dyspnea Patient Disposition: Home, Self-Care Additional Instructions: Your blood work was unremarkable. Your marker of heart attack (troponin) was slightly elevated at 31.7 but the 3 hour repeat troponin was the same. This is reassuring and means that you did not have a heart attack or heart damage as the cause of your shortness of breath.. The CT angiogram of your chest did not reveal any blood clots or other abnormalities in your lungs to explain your shortness of breath. I did discuss your presentation with our covering vending route driver, Dr. Bravo and he felt that your symptoms were caused by Brillanta. He felt that the symptoms should improve over time. He recommended that you continue taking the medicine. He also felt that this medication is much more effective then Plavix (ticagrelor) therefore he does not want to change the medicine at this time. I want you to continue taking the Brillant over the weekend and talk to your vending route driver on Thursday to discuss how you are feeling. Follow-up with your doctor in 2 days. Please return to the emergency department if your symptoms get worse or if you develop any symptoms that are concerning to you. Prescriptions: No Action amlodipine 5 mg tablet 5 mg PO BEDTIME simvastatin 40 mg tablet 40 mg PO BEDTIME aspirin 81 mg Tablet,Chewable 81 mg PO BEDTIME finasteride 5 mg tablet 5 mg PO DAILY tamsulosin 0.4 mg capsule 0.8 mg PO DAILY hydralazine 25 mg tablet 25 mg PO BID Referrals: Jonh Amaral MD [Physician] - 5 days (Dyspnea status post LAD stent 2 days prior, negative workup in the emergency department, Dr. Bravo felt that dyspnea could be secondary to Brilinta but advised continuing this medication) Print Language: French
[2024-06-16 10:58] VITALS: BP 176/54; PULSE 90; RESP 26; TEMP 36.9; O2SAT 98; BMI 28.5
[2024-06-16 11:02] VITALS: PULSE 90; RESP 26; TEMP 36.9; O2SAT 98
--- NOTE | 2024-06-16 11:04 | PC.NURSE ---
Pt. on monitoring manager at this time.
--- NOTE | 2024-06-16 11:10 | ECG_ITS ---
Test Reason : sob Blood Pressure : / mmHG Vent. Rate : 075 BPM Atrial Rate : 000 BPM P-R Int : 000 ms QRS Dur : 104 ms QT Int : 394 ms P-R-T Axes : 000 026 048 degrees QTc Int : 439 ms Normal sinus rhythm Normal ECG When compared with ECG of 27-JUL-2023 11:19, Premature atrial complexes are no longer Present Referred By: Hawk Lion Electronically Signed By:VANDANA CAR MD
[2024-06-16 11:17] LABS: MANUAL DIFF FLAG NO
[2024-06-16 11:20] LABS: Basophils Percent Auto 0.3 % (0-2); Eosinophils Absolute Auto 0.1 X10*3/uL (0.0-0.4); Eosinophils Percent Auto 1.2 % (0-4); Hematocrit 35.2 % (42.0-52.0); Imm Gran Abs Auto 0.03 X10*3/uL (0.00-0.03); Imm Gran Pct Auto 0.5 % (0.0-0.4); Lymphocytes Absolute Auto 1.3 X10*3/uL (1.2-4.9); Lymphocytes Percent Auto 21.7 % (20-40); Mean Corpuscular HGB Conc 34.1 g/dl (31.0-36.0); Mean Corpuscular Hemoglobin 33.8 pg (27.0-33.0); Mean Corpuscular Volume 99.2 fL (80.0-98.0); Mean Platelet Volume 9.9 fL (9.4-12.4); Monocytes Absolute Auto 0.5 X10*3/uL (0.1-1.2); Monocytes Percent Auto 8.1 % (2-11); Neutrophils Absolute Auto 4.2 x10*3/uL (2.0-8.3); Neutrophils Percent Auto 68.2 % (45-73); Platelet Count 155 X10*3/uL (160-400); Red Blood Count 3.55 X10*6/uL (4.60-5.80); Red Cell Distribution Width 13.5 % (11.0-16.0); White Blood Count 6.1 X10*3/uL (4.8-10.8)
--- OUTSIDE RECORDS SUMMARY | 2024-06-16 11:20 | XMS_ITS | Continuity of Care Document ---
Author Organization [facility] ter Address [address] [place] [id number]- Care Team Providers Care Hl7 Developer Name Role Phone Trip Blanton MD Primary Care Physician [phone] Encounter [facility] ACCT R [id number] Date(s): 06/14/24 - 06/14/[address] [address] Discharge Disposition: A-D/C Home Attending Physician: Sal Seay MD Admitting Physician: Sal Seay MD Referring Physician: Jonh Amaral MD Allergies, Adverse Reactions, Alerts No Known Allergies Medications aspirin 81 mg oral tablet, chewable 81 mg, 1, tablet, By Mouth, Daily, # 30 tablet, Refills 0, Maintenance, 06/14/24 8:41:00 EDT, Partial fill upon patient request if the prescription is for a schedule II opioid drug. Start Date: 06/14/24 Status: Ordered Finasteride = 5 mg, By Mouth, Daily, 0 Refills, Maintenance, 06/14/24 8:42:00 EDT, Partial fill upon patient request if the prescription is for a schedule II opioid drug. Start Date: 06/14/24 Status: Ordered hydrALAZINE = 25 mg, By Mouth, 2 times a day, 0 Refills, Maintenance, 06/14/24 8:41:00 EDT, Partial fill upon patient request if the prescription is for a schedule II opioid drug. Start Date: 06/14/24 Status: Ordered NaCL 0.9% Flush 3 mL, IV Push, Every 8 hours, 0 Refills, Maintenance, 06/14/24 11:42:00 EDT, Injection, Partial fill upon patient request if the prescription is for a schedule II opioid drug. Start Date: 06/14/24 Status: Ordered NaCL 0.9% Flush 3 mL, IV Push, Every 8 hours, PRN Line/Tube Patency, 0 Refills, Maintenance, 06/14/24 11:42:00 EDT,Injection, Partial fill upon patient request if the prescription is for a schedule II opioid drug. Start Date: 06/14/24 Status: Ordered Simvastatin = 40 mg, By Mouth, Daily at bedtime, 0 Refills, Maintenance, 06/14/24 8:42:00 EDT, Partial fill upon patient request if the prescription is for a schedule II opioid drug. Start Date: 06/14/24 Status: Ordered Tamsulosin 0.4 mg, By Mouth, Daily, Refills 0, Maintenance, 06/14/24 8:42:00 EDT, Partial fill upon patient request if the prescription is for a schedule II opioid drug. Start Date: 06/14/24 Status: Ordered ticagrelor 90 mg oral tablet 1 tablet = 90 mg, By Mouth, 2 times a day, # 180 tablet, 3 Refills, Maintenance, 06/14/24 11:43:00 EDT, Tablet, [facility] 3, Partial fill upon patient request if the prescription is for a schedule II opioid drug., 175, cm, 06/14/24 7:42:0... Start Date: 06/14/24 Status: Ordered Vital Signs Most recent to oldest [Reference Range]: 1 2 3 Height 175 cm (06/14/24 7:42 AM) Weight 87 kg (06/14/24 7:42 AM) Oxygen Saturation [94-100 %] 97 % (06/14/24 3:00 PM) 97 % (06/14/24 2:30 PM) 97 % (06/14/24 2:00 PM) Body Mass Index [18.5-24.99 kg/m2] 28.41 kg/m2 *H* (06/14/24 7:42 AM) Blood Pressure [90-138/55-84 mm Hg] 169/74mm Hg *H* (06/14/24 2:00 PM) 187/66mm Hg *H* (06/14/24 1:30 PM) 157/57mm Hg *H* (06/14/24 1:00 PM) Respiratory Rate [16-30 br/min] 18 br/min (06/14/24 3:00 PM) 14 br/min *L* (06/14/24 2:30 PM) 13 br/min *L* (06/14/24 2:00 PM) Temperature [96.8-100.4 DegF] 98.3 DegF (06/14/24 7:42 AM) Mode of Delivery (Oxygen) Room air (06/14/24 3:00 PM) Room air (06/14/24 2:30 PM) Room air (06/14/24 2:00 PM) Dry Weight 87 kg (06/14/24 7:42 AM) Note * Event Display: Hemodynamic Procedure Report Authored Date: * Lorelei Robison: PERFORM, SIGN, VERIFY Event Display: Cardiac Rehab Note Authored Date: Patient: SHIELA PURCELL Age: 83 years Sex: Male : 1940 Associated Diagnoses: None Author: Lorelei Robison Diagnosis Cardiac Rehab Diagnosis: SANDOVAL LAD. Pre-exercise Vitals Vital Signs Comment: Reviewed in CIS. Pre-exercise Physical Examination Neurologic: alert & oriented. Cardiovascular: heart rate regular. Lungs: Normal I:E. Activity Activity tolerance: Change in activity tolerance Independently ambulating. Compliance problems: Compliance problems: exercise. . Patient Education Education: Patient alone, Written material included, Post procedure guidelines, Stent card reviewed. Education topic Teachback comprehension 75% Topic: Medication education, Role of exercise, Home activity guidelines/limits. Recommendation and Plan Ambulate: 3-5 times/day. Outpatient follow up recommended: [facility], 07/12/2024 8am. Cardiac Rehab: Will sign off at this time, home today. Recommendation comment: RN notified of plan. * Rosalva Emmanuel RN: PERFORM Event Display: Discharge/Transfer Note Hospital Authored Date: [id number] Nursing Discharge Note Entered On: 06/14/2024 16:47 EDT Performed On: 06/14/2024 15:45 EDT by Rosalva Emmanuel RN Nursing Discharge Note 2 Discharge Time : 06/14/2024 15:45 EDT Discharge Level of Care at Discharge : Home/Senior Care/Foster Care Patient Left Unit Via : Ambulatory Patient Accompanied Off Unit with : Responsible adult DC Instructions Provided & Signed by Pt : Yes Patient Understands D/C Instructions : Yes Verbalized Understanding of D/C Plan By : Patient Patient Instructions Discharge Signed : Yes Did Pt have Specialty Bed or Wound Vac : No Rosalva Emmanuel RN - 06/14/2024 16:47 EDT * Rosalva Emmanuel RN: PERFORM Event Display: Patient Education/Instruction Authored Date: [id number] Inpatient Adult Discharge Instructions. [address] [address] Name: SHIELA PURCELL : 1940?? Visit: 06/14/2024 07:40?? Current Date: 06/14/2024 15:32 ?? Account: [id number]?? Inpatient Adult Discharge Instructions We would like to thank you for allowing us to assist you with your healthcare needs. The following includes patient education materials and information regarding your injury/illness. Our entire staffstrives to provide an excellent experience for our patients and their families. PLEASE ENSURE YOU FOLLOW-UP PER THE INSTRUCTIONS BELOW! ?? YOUR OPINION IS IMPORTANT TO US! Please complete the survey you may receive by mail or email. Your feedback will be used to make improvements to the healthcare experiences of our patients and their families. Surveys are administered by [employer] ?? If further treatment with your primary care physician or another doctor is recommended, it is important for you to keep the appointment. Call your primary care physician or return to the Emergency Department immediately if your condition worsens, fails to improve, or new symptoms develop. If you need to find a doctor, you can call [facility] for a referral at [phone] or toll free at [phone]) or log in to [email or web address].[employer].. ?? [facility], in keeping with [facility] guidance, no longer requires face masks for staff, patientsor visitors in most situations. Similiar to time spent indoors at other locations, there is the chance that you were exposed to repiratory viruses during your time with us (such as flu or COVID-19). If you develop symptoms concerning for a viral respiratory infection, please seek testing (and treatment if indicated) from your medical provider or home test kit. ?? You can view and manage your care through the patient portal or by using a health care jesica of your choosing. [employer] is a website that allows you to securely view your medical information including your hospital discharge summary, office visit summaries, medications and follow-up visits. You can also request appointments, renew medications, and request access to your medical information using a health care jesica of your choosing, or just ask a question. You can enroll at [email or web address] or register during your next office visit. You have been discharged from [facility], Patient Care Unit: CARE??. If you have any questions regarding these instructions, including results of studies pending, afteryou leave, please call us and we will be happy to assist you 22/06. [facility] Nursing Unit Direct Phone Number, for 22/06 contact and results of studies pending CARE [address] [place] [id number] Your Care Team Attending Physician Sal Seay MD?? Consulting Providers Sal Seay MD?? Discharging Providers Mikhail Vuong MD Tests Performed Below is a partial list of the tests performed during your hospitalization. You may have had other tests and procedures not included in this list. Please discuss all test results with your provider. Basic Metabolic Panel CBC Type and Screen No tests performed during this visit.?? Primary Care Provider Harvinder ROMERO, Trip Parker? Advance Directive Health Care Proxy on File No Discharge Vitals Temperature: 98.3 DegF Height: 175 cm Respiratory Rate:??14 br/min??Low Weight: 87 kg Systolic Blood Pressure:??169 mm Hg??High Body Mass Index:??28.41 kg/m2??High Diastolic Blood Pressure: 74 mm Hg Body surface area: 2.06 Oxygen Saturation: 97 % ?? Studies Pending All studies ordered during this hospital stay have been completed unless listed below. Please discuss all pending results with your provider listed above in these instructions. ?? No incomplete studies found?? What to do next Instructions From Your Doctor ?? Orders? 06/14/24 15:31:00 EDT?? You Need to Schedule the Following Appointments Follow Up with??[facility]- Phase 2 Cardiac Rehab When:??07/12/2024 08:00 AM EDT Where: [address] [facility] [address] [place] [address]- [phone] Follow Up with??Munir ROMERO, Jonh When:??Within 2 to 5 weeks Where: [address] [facility] [address] [facility] [place] [address]- Follow Up with??Harvinder ROMERO, Trip Parker When:??Within 2 to 5 weeks Where: [address] [place] [address], [address] [place] [address]- Discharge Medications SHIELA PURCELL :1940 Visit Date:06/14/2024 Medications: Please continue your medications until treatment is completed or stopped by your provider. Medications not listed below should be discontinued. Discuss any questions related to medications with your provider. 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/24; then twice a day at home Unchanged Aspirin (aspirin 81 mg oral tablet, chewable) 1 tab(s) Oral Daily as prescribed; continue per home schedule Unchanged Finasteride 5 Milligram Oral Daily as prescribed; continue per home schedule Unchanged hydrALAZINE 25 Milligram Oral Twice a day as prescribed; continue per home schedule Unchanged Simvastatin 40 Milligram Oral Daily at Bedtime as prescribed; continue per home schedule Unchanged Tamsulosin 0.4 Milligram Oral Daily as prescribed; continue per home schedule Pharmacy Information [facility] 3: [address] [place], [place] [id number] [phone] Prescription Given During Visit Ticagrelor (ticagrelor 90 mg oral tablet) - 1 tablet = 90 mg, By Mouth, 2 times a day, # 180 tablet, 3 Refills, [facility] 3, [address] [place] [phone]?? Laboratory Results Below is a partial list of the most recent Laboratory test results done prior to this discharge. You may have had other tests and procedures not included in this list. Please discuss all test resultswith your provider. Est Creatinine Clearance - 43.76 mL/min (06/14/2024) Basic Metabolic Panel (06/14/2024) ???Sodium - 142 mmol/L???Potassium - 4.6 mmol/L???Chloride - 108 mmol/L???Bicarbonate Level - 23 mmol/L???Anion Gap - 11???Glucose Level - 119 mg/dL???BUN - 25 mg/dL???Creatinine-Blood - 1.23 mg/dL???Estimated GFR Creatinine - 58 ML/MIN/1.73 M2???Calcium - 8.7 mg/dL CBC (06/14/2024) ???WBC - 6.0 k/mm3???RBC - 3.83 m/mm3???Hgb - 12.7 Gm/dL???Hct - 38.3 %???MCV - 100.0 femtoliters???MCH - 33.2 pg???MCHC - 33.2 g/dL???Platelet Count - 162 k/mm3???RDW-SD - 49.8 femtoliters???MPV - 9.8 femtoliters???Nucleated RBC (Automated) - 0.0 #/100 WBC'S???Abs. NRBC - 0.0 k/mm3 Type and Screen (06/14/2024) ???Blood Type - A Positive???Antibody Screen - Negative Allergies (NKA means No Known Allergies) NKA Problems No qualifying data available Education Materials Below is the list of Educational Leaflet Providered with your Discharge Instructions. [employer] Patient Education - Coronary Stents?? [employer] Patient Education - Cardiac Rehabilitation: Following an Exercise Program?? [employer] Patient Education - Ticagrelor?? [employer] Patient Education - Surgery Radial Cath Approach Discharge Instructions?? [employer] Patient Education - Procedural Sedation?? [employer] Patient Education - Discharge Instructions for Coronary Angioplasty and Stenting?? Valuables and Belongings I fully understand and agree that [facility] accepts no responsibility for all my personal property including clothing, toilet articles, radios, jewelry, dentures, hearing aids, rings, money, or any other property that is in my possession or is brought to me after admission. I understand certain valuables may be placed in a hospital safe for a short period of time. I understand that the hospital is not liable for loss or damage due to accident, fire, or other natural occurrence while said property is in the safe. I accept full responsibility for any personal property that I keep with me, and will not hold the hospital responsible in case of loss or disappearance. I acknowledge that i have been encouraged to send valuables and belongings home. ?? Review of Valuable and Belonging List: With patient Date for Pt to Sign Valuables/Belongings: 06/14/24 08:16:00 ?? Other Discharge Information ? Pulmonary Rehab Status?? Pulmonary Rehab Discharge Status?? Respiratory Rate:??14 br/min??Low ? Cardiac Rehab Assessment?? Cardiac Rehab Inpatient Assessment?? Comments-Education: s/p PCI, home activity guidelines, stent card review Comments-Smoking Cessation: na Comments-Exercise Activity: progressive activity as tolerated Comments-Nutrition: per RD Comments-Stress Management: healthy coping techniques Comments-Lipids: diet, exercise, medication per MD Comments-Other plan of care: Encourage Phase 2 Patient attending Phase II: Yes Phase II Site of Care: [facility] [address] [facility] [phone] Cardiac Orientation Appointment: 07/12/24 08:00:00 Common Emergency Awareness Tips IS IT A STROKE? Act FAST and Check for these signs: FACE Does the face look uneven? ARM Does one arm drift down? SPEECH Does their speech sound strange? TIME Call at any sign of stroke ?? Heart Attack Signs Chest discomfort: Most heart attacks involve discomfort in the center of the chest and lasts more than a few minutes, or goes away and comes back. It can feel like uncomfortable pressure, squeezing, fullness or pain. Discomfort in upper body: Symptoms can include pain or discomfort in one or both arms, back, neck, jaw or stomach. Shortness of breath: With or without discomfort. Other signs: Breaking out in a cold sweat, nausea, or lightheaded. Remember, MINUTES DO MATTER. If you experience any of these heart attack warning signs, call to get immediate medical attention! ?? Smoking can increase your chances of developing chronic health problems and can cause harmful effects to other family members in your house. If you smoke, you are strongly encouraged to quit. Please call [facility] Link at [phone] or [phone]) or log in to [email or web address] for referrals to smoking cessation programs. ?? 976 Suicide & Crisis Lifeline is available 22/06 if you or someone you know needs to find a reason to keep living. By calling 436 you'll be connected to a skilled, trained counselor at a crisis center in your area. INPATIENT DISCHARGE INSTRUCTIONS SIGNATURE PAGE SHIELA PURCELL Location:[facility] Registration Date and Time:06/14/2024 07:40 EDT Primary Care Physician: Harvinder ROMERO, Trip Parker, Attending Physician: Dawood ROMERO, Sal, I NATALIAELIE SHIELA, have received the above patient education materials/instructions and have verbalized understanding. If ambulance or transport services are being used I further acknowledge being given a choice of service. ?? If you need to contact me, please call me at this number: . 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 [address] Coronary Stents A stent is a small metal coil or mesh tube that is placed in a narrowed artery to hold it open. This??helps improve blood flow to your heart. The stent also helps keep the artery from re-narrowing (restenosis). Most stents are coated and slowly release medicine over a time. This reduces the amount of scar tissue that forms in the artery, helping prevent restenosis. A reliability specialist called an sexual assault counsellor does coronary angioplasty and stenting. ??During the procedure ??? A member of your healthcare team will numb the skin at the insertion site with a local anesthetic. This is usually the groin or the wrist with a local anesthetic. They willmake a needle puncture to insert the catheter. ??? Your doctor will insert a guide wire through thethin, flexible tube (catheter) and move it to the narrow spot in your heart's artery. Your doctor tracks its movement using pulsed X-ray called fluoroscopy. An angiogram will be done which is an X-ray movie of heart artery blood flow using contrast. This identifies the location of the stenosis. ???Your doctor will then insert a balloon-tipped catheter through the guide catheter and thread it over the guide wire. They will position it at the narrow part of the artery. ??? Your doctor will deliver a stent mounted on a balloon-tipped catheter to the blockage in??your artery. ??? They will inflate the balloon to expand the stent. ??? The expanded stent further compresses the plaque against theartery wall, increasing and restoring the blood flow to the heart muscle. ?? After the procedure ??? Your doctor will give you medicine to prevent blood clots from forming on the new stent. You will continue to take this medicine until the stent and artery have healed. Your healthcare team will tell you how long you should take this. Your doctor will give you a prescriptionbefore you go home. This prescription is often for a medicine called clopidogrel or others like it.This medicine is taken with aspirin to prevent blood clots from forming inside the newly opened area of the artery. ??? If the insertion site was in your groin, you may need to lie down with your legstill for several hours. The amount of time may depend on whether a closure device such as a stitchor collagen plug was used to close the opening made in your artery. The time you must be still may be shorter if one of these devices was used. The amount of time will also depend on if there is any bleeding at the artery site. ??? If the insertion site was in your wrist, a pressure band may be used to hold pressure on the wrist. It's slowly removed once there is no sign of bleeding. ??? A nurse will check your blood pressure and the insertion site. ??? You may be asked to drink fluid to help flush the contrast liquid out of your system. ??? You will likely be given other prescriptions to prevent other areas of the arteries from narrowing. This includes medicine to control cholesterol, suchas statins. You may also get a beta olive to prevent a heart attack. Nitroglycerin is prescribed to treat episodes of chest pain (angina) if this occurs. Don't mix nitroglycerin with medicines thatare used to treat erectile dysfunction or pulmonary hypertension. This can cause a dangerous drop in your blood pressure. ??? You need to have a follow up appointments to check how well you respond to the stent and new medicines. This can be as early as a week or maybe within 2 to 4 weeks after your coronary stent placement. ??? You may be able to go home the same day. Or you may spend the night in the hospital after your procedure. Your stay may be longer depending on your condition and the results of your procedure. You will get instructions for what to do when you go home to help you recover. ??? Have someone drive you home from the hospital. ??? It???s normal to find a small bruise or lump at the insertion site. This should disappear within a few weeks. Let your healthcare provider know if the bruise is large or very uncomfortable. ??? You will be given discharge instructions that tell you how to keep the puncture site clean and dry and what activity restrictions you may have after your procedure. Make sure you ask your healthcare team about any questions or concerns you have after your procedure. ?? When to call your healthcare provider Call your healthcare provider right away if you have any of the following: ??? Increasing pain, swelling, redness, bleeding, extensive bruising, or drainage at the insertion site ??? Fever of??100.4??F (38??C) or higher, or as directed by your healthcare provider ??? Symptoms of infection such as redness, swelling, drainage, or warmth at the insertion site ??? Trouble urinating ??? Blood in your urine ??? Black or tarry stools ??? Any unusual bleeding ??? Irregular, very slow, or fast heartbeat??? Dizziness ?? Call 911 Call 911 if any of the following occur: ??? Pain or discomfort in the chest, back, neck, throat, jaw, arms, or shoulders ??? Trouble breathing ??? Sudden numbness or weakness in arms, legs, or face, or difficulty speaking ??? The insertionsite swells up very fast ??? Bleeding from the insertion site that does not slow down with firm pressure ??? Severe pain, coldness, numbness, or a bluish color in the leg or arm that held the catheter ?? Last Reviewed Date: 2024 ?? 2149-9098 [employer]. All rights reserved. This information is not intended as a substitute for professional medical care. Always follow your healthcare professional's instructions. ?? * Lorelei Robison: PERFORM Event Display: Patient Education Leaflets Authored Date: [id number] Cardiac Rehabilitation: Following an Exercise Program ?? [address]9999 Cardiac Rehabilitation: Following an Exercise Program A big part of a cardiac rehab program is exercise, but it also includes education about lifestyle changes. Regular exercise will make your heart and coronary arteries healthier. It helps increase strength, lower blood pressure, relieve stress, and control your weight. Cardiac rehab lowers the risk for future hospital stays and worsening heart problems. A supervised program Your cardiac rehab exercise program may start right in the hospital. Your healthcare provider and acardiac rehabilitation therapy aide will explain how it works. At first, the goal is to regain basic strength.You will start with light exercise, such as walking down the hospital esparza. You will work with yourhealthcare provider to determine when you are ready to leave the hospital. You may be transferred to another facility or be discharged to your home. After you leave the hospital, you may continue supervised exercise at a medical center or other facility. There, exercises will be prescribed to help you build strength, flexibility, and endurance. This program will be designed to help you function on your own and build your heart's strength. ?? Continuing at home After you finish your supervised program, don't stop exercising. Keep exercising at the medical center, at home, or at a fitness center. By continuing an exercise program, you???ll lower your risk for future heart attack, acute myocardial infarction (AMI), and stroke. And you???ll feel and look better, too. To make exercise more fun, invite your family and friends to join you. Being active has benefits for everyone. ?? Aerobic exercise Aerobic exercise helps your heart and other muscles better use oxygen. Many cardiac rehab programs use walking on a treadmill as a basic form of aerobic exercise. Some programs also use equipment, such as stationary bikes, recumbent cross-trainers that are low impact on joints, arm cranks, and light weights. You will be shown how to use them to get the most benefit. In most programs, your heart rate and blood pressure will be monitored while you exercise. ?? When to call your healthcare provider ?? Stop exercising and call your provider if you feel any of these symptoms: ??? Extreme fatigue (especially after exercise) ? Lightheadedness, dizziness, or nausea Call 911 Call 911 if you feel any of these symptoms: ??? Chest pain or discomfort ??? Burning, tightness, heaviness, or pressure in your chest ??? Unusual aching in your arm, shoulders, neck, jaw, or back ???Racing or skipping heart ??? Unusual shortness of breath or difficulty breathing ??? Fainting ?? Last Reviewed Date: 2021 ?? [id number] [employer]. All rights reserved. This information is not intended as a substitute for professional medical care. Always follow your healthcare professional's instructions. ?? * Rosalva Emmanuel RN: PERFORM Event Display: Patient Education Leaflets Authored Date: [id number] Ticagrelor ?? [id number] Ticagrelor Brand Name(s): Brilinta??; also available generically IMPORTANT WARNING: Ticagrelor may cause serious or life-threatening bleeding. Tell your doctor if you currently have or have had a condition that causes you to bleed more easily than normal; if you have recently had surgery or been injured in any way; or if you have or have ever had a stomach ulcer; bleeding in your stomach, intestines, or brain; a stroke or mini-stroke; a condition that may cause bleeding in your i ntestines such as polyps (abnormal growths in the lining of the large intestine); or liver disease.Tell your doctor and pharmacist if you are taking medications that may cause bleeding including anticoagulants (blood thinners) such as warfarin (Coumadin, Jantoven); heparin; other medications to treat or prevent blood clots; or regular use of non-steroidal anti-inflammatory medications such as ibuprofen (Advil, Motrin) and naproxen (Aleve). Your doctor also will probably not prescribe ticagrelor if you are likely to need heart bypass surgery (a certain type of open heart surgery) right away. While you are taking ticagrelor, you will probably bruise and bleed more easily than usual or bleed for longer than usual and may be more likely to have nosebleeds. However, if you experience any of the following symptoms, call your doctor immediately: bleeding that is unexplained, severe, long-lasting, or uncontrollable; pink or brown urine; red or black, tarry stools; vomit that is bloody or that looks like coffee grounds; or coughing up blood or blood clots. If you are having surgery, including dental surgery, or any type of medical procedure, tell your doctor or dentist that you are taking ticagrelor. Your doctor will probably tell you to stop taking ticagrelor at least 5 days before your surgery is scheduled. Your doctor will probably tell you to take a low dose of aspirin (less than 100 mg) during your treatment, but taking higher doses of aspirin may prevent ticagrelor from working as it should. Many liif-ahj-wscqpsr (OTC) medications contain aspirin, so be sure to read all labels carefully. Do not take additional aspirin or aspirin-containing products during your treatment with ticagrelor without talking to your doctor. Your doctor or pharmacist will give you the drafting supervisor's patient information sheet (Medication Guide) when you begin treatment with ticagrelor and each time you refill your prescription. Read the information carefully and ask your doctor or pharmacist if you have any questions. You can also visitthe Food and Drug Administration (FDA) website (http://www.fda.gov/Drugs/DrugSafety/quz451634.htm) or the drafting supervisor's website to obtain the Medication Guide. Talk to your doctor about the risks of taking ticagrelor. WHY is this medicine prescribed? Ticagrelor is used to prevent a serious or life-threatening heart attack or stroke, or in people who have had a heart attack or who have acute coronary syndrome (ACS; blockage of blood flow to the heart). It is also used to prevent blood clots from forming in people who have received coronarystents (metal tubes surgically placed in clogged blood vessels to improve blood flow) to treat ACS.Ticagrelor is used to decrease the risk of a first-time heart attack or stroke in people at risk with coronary artery disease (CAD; reduced blood flow to the heart). It is also used to decrease the risk of another more serious stroke in people who are having a mild to moderate stroke or a transient ischemic attack (TIA; ministroke). Ticagrelor is in a class of medications called antiplatelet medications. It works by preventing platelets (a type of blood cell) from collecting and forming clots that may cause a heart attack or stroke. HOW should this medicine be used? Ticagrelor comes as a tablet to take by mouth. It is usually taken with or without food two times aday. Take ticagrelor at around the same times every day. Follow the directions on your prescriptionlabel carefully, and ask your doctor or pharmacist to explain any part you do not understand. Take ticagrelor exactly as directed. Do not take more or less of it or take it more often than prescribedby your doctor. If you are unable to swallow ticagrelor tablets, you may crush the tablet and mix it with water. Drink the mixture immediately, then refill the glass with water and stir and again drink the mixture immediately. If you have a nasogastric (NG) tube, your doctor or pharmacist will explain how to prepare ticagrelor to give through an NG tube. Ticagrelor will help prevent serious problems with your heart and blood vessels only as long as youtake the medication. Continue to take ticagrelor even if you feel well. Do not stop taking ticagrelor without talking to your doctor. If you stop taking ticagrelor, there is a higher risk that you may have a heart attack or stroke. If you have a stent, there is also a higher risk that you could deve lop a blood clot in the stent if you stop taking ticagrelor too soon. Are there OTHER USES for this medicine? This medication may be prescribed for other uses; ask your doctor or pharmacist for more information. What SPECIAL PRECAUTIONS should I follow? Before taking ticagrelor, ??? tell your doctor and pharmacist if you are allergic to ticagrelor, any other medications, or any of the ingredients in ticagrelor tablets. Ask your pharmacist or check the Medication Guide for a list of the ingredients. ??? tell your doctor and pharmacist what other prescription and nonprescription medications, vitamins, nutritional supplements, and herbal products you are taking or plan to take. Be sure to mention the medications listed in the IMPORTANT WARNING section and any of the following: antibiotics such as clarithromycin (Biaxin, in PrevPak) and telithromycin (Ketek); antifungal m edications such as itraconazole (Onmel, Sporanox), ketoconazole (Nizoral), and voriconazole (Vfend); cholesterol-lowering medications such as lovastatin (Altoprev, in Advicor) and simvastatin (Zocor,in Simcor, in Vytorin); digoxin (Lanoxin); medications for high blood pressure; medications for human immunodeficiency virus (HIV) such as atazanavir (Reyataz, in Evotaz), indinavir (Crixivan), nelfinavir (Viracept), ritonavir (Norvir, in Kaletra, in Viekira Ketan), and saquinavir (Invirase); medications for seizures such as carbamazepine (Carbatrol, Equetro, Tegretol, others), phenobarbital, and phenytoin (Dilantin); nefazodone; opioid (narcotic) medications for pain such as hydrocodone (in [place] cet, in Vicodin, others), morphine (Avinza, Lizzette, MSIR, others), or oxycodone (OxyContin, in Percocet, in Roxicet, others); and rifampin (Rifadin, Rimactane, in Rifamate, in Rifater). Your doctor may need to change the doses of your medications or monitor you carefully for side effects. ??? tell your doctor if you have or have ever had an irregular heartbeat that is not corrected by a pacemaker, a type of lung disease such as chronic obstructive pulmonary disease (COPD; a group of diseases that affect the lungs and airways) or asthma. ??? tell your doctor if you are , plan to become, or are . If you become while taking ticagrelor, call your doctor. What SPECIAL DIETARY instructions should I follow? Unless your doctor tells you otherwise, continue your normal diet. What should I do IF I FORGET to take a dose? Skip the missed dose and continue your regular dosing schedule. Do not take a double dose to make up for a missed one. What SIDE EFFECTS can this medicine cause? Ticagrelor may cause side effects. Tell your doctor if any of these symptoms are severe or do not go away: ??? dizziness ??? nausea ??? Some side effects can be serious. If you experience any of these symptoms or those listed in the IMPORTANT WARNING section, call your doctor immediately: ??? shortness ofbreath that occurs while you are at rest, after a small amount of exercise, or after any physical activity ??? chest pain ??? fast, slow, pounding, or irregular heartbeat ??? rash ??? swelling of theface, throat, tongue, lips, and eyes Ticagrelor may cause other side effects. Call your doctor if you have any unusual problems while taking this medication. If you experience a serious side effect, you or your doctor may send a report to the Food and Drug Administration's (FDA) MedWatch Adverse Event Reporting program online (http://www.fda.gov/Safety/MedWatch) or by phone ( ). What should I know about STORAGE and DISPOSAL of this medication? Keep this medication in the container it came in, tightly closed, and out of reach of children. Store it at room temperature and away from excess heat and moisture (not in the bathroom). It is important to keep all medication out of sight and reach of children as many containers (such as weekly pill minders and those for eye drops, creams, patches, and inhalers) are not child-resistant and young children can open them easily. To protect young children from poisoning, always lock safety caps and immediately place the medication in a safe location ??? one that is up and away and out of their sight and reach. http://www.upandaway.org Unneeded medications should be disposed of in special ways to ensure that pets, children, and otherpeople cannot consume them. However, you should not flush this medication down the toilet. Instead,the best way to dispose of your medication is through a medicine take-back program. Talk to your pharmacist or contact your local garbage/recycling department to learn about take-back programs in your community. See the FDA's Safe Disposal of Medicines website (http://goo.gl/c4Rm4p) for more information if you do not have access to a take- back program. What should I do in case of OVERDOSE? In case of overdose, call the poison control helpline at . Information is also available online at https://www.poisonhelp.org/help. If the victim has collapsed, had a seizure, has trouble breathing, or can't be awakened, immediately call emergency services at 646. Symptoms of overdose may include the following: ??? bleeding ??? nausea ??? vomiting ??? diarrhea ??? irregular heartbeat What OTHER INFORMATION should I know? Keep all appointments with your doctor and the laboratory. Your doctor may order certain lab tests to check your body's response to ticagrelor. Before having any laboratory test, tell your doctor and the laboratory personnel that you are taking ticagrelor. Do not let anyone else take your medication. Ask your pharmacist any questions you have about refilling your prescription. It is important for you to keep a written list of all of the prescription and nonprescription (wiir-myv-hmshokx) medicines you are taking, as well as any products such as vitamins, minerals, or otherdietary supplements. You should bring this list with you each time you visit a doctor or if you areadmitted to a hospital. It is also important information to carry with you in case of emergencies. This report on medications is for your information only, and is not considered individual patient advice. Because of the changing nature of drug information, please consult your physician or pharmacist about specific clinical use. The [employer] represents that the information provided hereunder was formulated with a reasonable standard of care, and in conformity with professional standards in the field. The [employer] makes no representations or warranties, express or implied, including, but not limited to, any implied warranty of merchantability and/or fitness for a particular purpose, with respect to such information and specifically disclaims all such warranties. Users are advised that decisions regarding drug therapy are complex medical decisions requiring the independent, informed decision of an appropriate health care director, and the information is provided for informational purposes only. The entire monograph for a drug should be reviewed for a thorough understanding of the drug's actions, uses and side effects. The [employer] does not endorse or recommend the use of any drug.The information is not a substitute for medical care. AHFS?? Patient Medication Information???. ?? Copyright, 2023. The [employer]??, [address] [facility], [address], [place], [place]. All Rights Reserved. Duplication for commercial use must be authorized by [facility]. Selected Revisions: December 14, 2020. AHFS?? Patient Medication Information???. ?? Copyright, 2023 ?? History and physical note * Event Display: History and Physical Hospital Authored Date: EKG study * Event Display: ECG 12-Lead Authored Date: Please click on pdf link to open report * Event Display: ECG 12-Lead Authored Date: Ventricular Rate: 67 BPM Atrial Rate: 267 BPM QRS Duration: 100 ms Q-T Interval: 414 ms QTC Calculation(Bazett): 437 ms R Lyons: 32 degrees T Lyons: 27 degrees Sinus rhythm Abnormal ECG When compared with ECG of 14-JUN-2024 11:43, Confirmed by HANK HANCOCK ([id number]) on 06/14/2024 5:17:53 PM [place]: HANK HANCOCK * Event Display: ECG 12-Lead Authored Date: [id number] Please click on pdf link to open report * Event Display: ECG 12-Lead Authored Date: [id number] Ventricular Rate: 69 BPM Atrial Rate: 69 BPM P-R Interval: 196 ms QRS Duration: 100 ms Q-T Interval: 414 ms QTC Calculation(Bazett): 443 ms P Lyons: 106 degrees R Lyons: 26 degrees T Lyons: 25 degrees Normal sinus rhythm Normal ECG When compared with ECG of 14-JUN-2024 07:58, No significant change was found Confirmed by Trip Alvarez ([id number]) on 06/14/2024 12:10:10 PM [place]: Trip Alvarez * Event Display: ECG 12-Lead Authored Date: [id number] Please click on pdf link to open report * Event Display: ECG 12-Lead Authored Date: [id number] Ventricular Rate: 83 BPM Atrial Rate: 83 BPM P-R Interval: 154 ms QRS Duration: 106 ms Q-T Interval: 368 ms QTC Calculation(Bazett): 432 ms P Lyons: 40 degrees R Lyons: 32 degrees T Lyons: 44 degrees Normal sinus rhythm with sinus arrhythmia Incomplete left bundle branch block Borderline ECG No previous ECGs available Confirmed by YUNG FOY ([id number]) on 06/14/2024 9:08:14 AM [place]: YUNG FOY Patient Care team information Care Team Personnel Name: Trip Blanton MD Position: Reference Physician Member Role: PCP Address: Address: [address] [place] [address], [address]
[2024-06-16 11:25] LABS: INTERNATIONAL NORM RATIO 0.9 (0.9-1.1); Prothrombin Time 11.5 SEC (11.1-13.3)
[2024-06-16 11:28] LABS: Partial Thromboplastin Time 28.6 SEC (26.0-36.8)
[2024-06-16 11:33] LABS: Alanine Aminotransferase 13 U/L (0-40); Alkaline Phosphatase 52 U/L (39-117); Anion Gap 13 (12-20); Aspartate Amino Transferase 18 U/L (5-37); Bilirubin Total 0.6 mg/dL (0.0-1.0); Blood Urea Nitrogen 20 mg/dL (9-16); Calcium 8.6 mg/dL (8.4-10.2); Carbon Dioxide 23 mmol/L (22-29); Chloride 112 mmol/L (96-108); Creatinine Clr Calc Pharmacy 44.4; Estimated Glomerular Filt Rate 51; Glucose Random 178 mg/dL (60-115); Lipase 24 U/L (8-78); Sodium 144 mmol/L (135-145); Total Protein 6.3 g/dL (6.5-8.0)
[2024-06-16 11:37] LABS: B Type Natriuretic Peptide 172 pg/mL (<100)
[2024-06-16 11:39] LABS: Troponin-I High Sensitivity 31.7 ng/L (<3.5-35.0)
[2024-06-16 12:22] LABS: Influenza A PCR NEGATIVE (Negative); Influenza B PCR NEGATIVE (Negative); Resp Syncy Virus RNA Qual PCR NEGATIVE (Negative); SARS COV2 PCR INHOUSE NEGATIVE (Negative)
[2024-06-16] MEDS: iohexoL 350 MG/ML 100 ML INFUS..BTL 65 ML IV (12:26)
[2024-06-16 13:01] VITALS: BP 167/72; PULSE 64; RESP 14; TEMP 36.8; O2SAT 100
[2024-06-16 14:57] LABS: Troponin-I High Sensitivity 31.6 ng/L (<3.5-35.0)
[2024-06-16 16:00] VITALS: BP 167/72; PULSE 66; RESP 18; TEMP 36.8; O2SAT 100
== END 2024-06-16 16:01 | disposition home or self-care (01) ==
PROVIDERS: Emergency Provider Emergency Medicine Emergency Medical Services; PCP Family Medicine
DX: R06.00 Dyspnea, unspecified (principal); R06.02 Shortness of breath; I25.10 Atherosclerotic heart disease of native coronary artery without angina pectoris; I10 Essential (primary) hypertension; E78.5 Hyperlipidemia, unspecified; R79.89 Other specified abnormal findings of blood chemistry; Z03.818 Encounter for observation for suspected exposure to other biological agents ruled out
CPT/HCPCS: 0241U; 36415; 71275; 80053; 82550; 83690; 83735; 83880; 84484; 85025; 85610; 85730; 93005; 99284; Q9967

== ENCOUNTER → 2024-06-16 11:10 | Outpatient (BNV) | payer MEDICARE, SELFPAY | PROVIDERS: Emergency Provider Emergency Medicine Emergency Medical Services; PCP Family Medicine; Visit Provider Internal Medicine Cardiovascular Disease | DX: R06.02 Shortness of breath (principal) | CPT/HCPCS: 93010 ==

== ENCOUNTER 2024-06-28 13:24 | Outpatient (AMB) | payer MEDICARE, SELFPAY ==
[2024-06-28 13:44] VITALS: BP 158/60; PULSE 68; BMI 28.3
--- NOTE | 2024-06-28 13:44 | A.OFFVIS_ITS ---
Vital Signs 06/28/24 13:44 Height 5 ft 9 in Weight 191 lb 12.835 oz BMI 28.3 BP 158/60 H Blood Pressure Location Lt brachial Position Sitting Pulse 68 Pulse Source Pulse Oximeter Intake Visit Reasons: 2 wk s/p cath Allergies No Known Allergies Allergy (Verified 06/16/24 11:00) Medication List - Last Reconciled 06/28/24 by Tianna Turpin NP aspirin 81 mg PO BEDTIME clopidogrel (Plavix) 75 mg PO DAILY 30 days finasteride 5 mg PO DAILY hydralazine 25 mg PO BID prednisone 10 mg PO DAILY simvastatin 40 mg PO BEDTIME tamsulosin 0.8 mg PO DAILY HPI Comments Details: 84-year-old male presents today for a follow-up after cardiac catherization on 06/14/2024. He states he has intermittent shortness of breath on exertion. He states it doesn't happen every time. Otherwise, he denies any chest pains, dizziness, palpitations, fever, chills, or tenderness at the access site. He states he has an appointment with [facility] cardiac rehab on 07/12/24. [facility] Medical History GERD (gastroesophageal reflux disease) BPH (benign prostatic hyperplasia) Hyperlipidemia Hypertension Surgical History (Updated 06/30/24 @ 10:13 by Tianna Turpin NP) S/P cardiac catheterization History of heart artery stent Family History Father No problems noted. Mother No problems noted. Social History Household Members: Spouse and Children Housing: House Do you presently have visiting nurse or other home services: No Alcohol intake: current Alcohol intake frequency: holidays/special occasions only Patient Tobacco Use Status: Former Tobacco user service: No Review of Systems Const Denies weakness ENT Denies dizziness Card Denies chest pain, Denies chest pain with activity, Denies syncope, Denies rapid heart rate, Denies pedal edema, Denies edema, Denies leg edema, Denies lightheadedness, Denies palpitations, Denies dyspnea, Denies dyspnea on exertion and Denies orthopnea Resp Denies cough, Denies dyspnea and Denies dyspnea on exertion GI Denies hematochezia and Denies change in stool character Musc Denies abnormal gait, Denies muscle cramps, Denies muscle weakness, Denies numbness, Denies radiating pain into limb and Denies tingling Neuro Denies abnormal gait, Denies dizziness, Denies syncope, Denies numbness, Denies tingling and Denies weakness Endo Denies palpitations Physical Exam Vital Signs: Last Vital Signs Pulse 68 06/28/24 13:44 BP 158/60 H 06/28/24 13:44 BMI result Body Mass Index 28.3 Const General: healthy appearing and no acute distress Orientation/consciousness: patient oriented x3 HEENT Head: Yes normal to inspection Eyes General: appearance normal, both eyes and all related structures Neck Neck: Yes normal visual inspection Chest Chest palpation & inspection: normal inspection of the chest Resp Effort & Inspection: normal respiratory effort Auscultation: clear to auscultation bilaterally Cardio Jugular venous distension: no JVD Palpation: normal PMI Rate: regular rate Rhythm: regular rhythm Heart sounds: S1 normal heart sound present, S2 normal heart sound present, no click, no gallops, no murmurs and no rubs GI Inspection: Yes normal to inspection Palpation (GI): Soft to palpation Skin General skin exam: no rashes or lesions noted Neuro General: patient oriented x3 Extrem General: Yes normal to inspection Psych Appearance: grossly normal Assessment & Plan Assessment & Plan (1) SOB (shortness of breath): Code(s): R06.02 - Shortness of breath Category: Medical (2) History of heart artery stent: Code(s): Z95.5 - Presence of coronary angioplasty implant and graft Category: Surgical (3) S/P cardiac catheterization: Comment: 06/14/[address] Seay Angiographic Findings Cardiac Arteries and Lesion Findings LMCA: Mild disease distal left main. LAD: Mid LAD 40% calcified stenosis. First diagonal ostium has 70% stenosis. Lesion in Mid LAD: 95% stenosis .Bifurcation lesion. Lesion in Mid LAD: Distal subsection.Bifurcation lesion. Lesion in 1st Diag: LCx: Mild luminal irregularities (<30%). RCA: Mild luminal irregularities (<30%). PCI to mid LAD Code(s): Z98.890 - Other specified postprocedural states Category: Surgical Plan Patient continues to have shortness of breath. Will switch to plavix with 400mg loading dose then 75mg once a day. Aspirin 81mg indefinetly. Will have him increase hydralazine as blood pressure is elevated. He reports they are always around 150s. Amairani lovell. Will have him check fasting labs. Currently on simvastatin 40mg. Orders: Orders Lipid Panel 06/28/24 R06.02 - Shortness of breath Cardiac Rehab 06/28/24 R06.02 - Shortness of breath, Z95.5 - Presence of coronary angioplasty implant and graft, Z98.890 - Other specified postprocedural states Basic Metabolic Panel 06/28/24 R06.02 - Shortness of breath Medications: New clopidogrel (Plavix) 75 mg PO DAILY 30 days 30 tabs 3RF Changed From hydralazine 25 mg PO BID To hydralazine 50 mg PO BID 30 days 60 tabs 3RF Coding Level of Care Code Est Pt Level 4 (95664) Diagnoses SOB (shortness of breath) R06.02 History of heart artery stent Z95.5 S/P cardiac catheterization Z98.890
== END 2024-06-28 14:14 | disposition home or self-care (01) ==
PROVIDERS: PCP Family Medicine; Visit Provider Nurse Practitioner
DX: R06.02 Shortness of breath (principal); Z95.5 Presence of coronary angioplasty implant and graft; Z98.890 Other specified postprocedural states
CPT/HCPCS: 99214

== ENCOUNTER → 2024-06-28 13:24 | Outpatient (BNVA) | payer MEDICARE, SELFPAY | PROVIDERS: PCP Family Medicine; Visit Provider Nurse Practitioner | DX: R06.02 Shortness of breath (principal); Z95.5 Presence of coronary angioplasty implant and graft; Z98.890 Other specified postprocedural states | CPT/HCPCS: 99212 ==

== ENCOUNTER 2024-07-25 06:09 | Outpatient (REF) | payer MEDICARE, SELFPAY ==
[2024-07-25 07:50] LABS: Anion Gap 11 (12-20); Blood Urea Nitrogen 26 mg/dL (9-16); Calcium 8.4 mg/dL (8.4-10.2); Carbon Dioxide 27 mmol/L (22-29); Chloride 110 mmol/L (96-108); Cholesterol 104 mg/dL (<200); Estimated Glomerular Filt Rate > 60; Glucose Random 109 mg/dL (60-115); HDL Cholesterol 36 mg/dL (>40); LDL Cholesterol Calculated 59 mg/dL (<100); Potassium 4.5 mmol/L (3.3-5.1); Sodium 143 mmol/L (135-145); Triglycerides 49 mg/dL (<150)
== END 2024-07-25 06:10 | disposition home or self-care (01) ==
LOC: HO.LAB 06:09
PROVIDERS: PCP Family Medicine; Visit Provider Nurse Practitioner
DX: R06.02 Shortness of breath (principal)
CPT/HCPCS: 36415; 80048; 80061

== ENCOUNTER 2024-09-09 05:58 | Outpatient (REF) | payer MEDICARE, SELFPAY ==
[2024-09-09 08:16] LABS: Alanine Aminotransferase 12 U/L (0-40); Anion Gap 12 (12-20); Aspartate Amino Transferase 16 U/L (5-37); Blood Urea Nitrogen 22 mg/dL (9-16); Carbon Dioxide 26 mmol/L (22-29); Chloride 108 mmol/L (96-108); Estimated Glomerular Filt Rate > 60; Potassium 4.3 mmol/L (3.3-5.1); Sodium 142 mmol/L (135-145)
== END 2024-09-09 05:59 | disposition home or self-care (01) ==
LOC: HO.LAB 05:58
PROVIDERS: PCP Family Medicine; Visit Provider Family Medicine
DX: I10 Essential (primary) hypertension (principal); E78.00 Pure hypercholesterolemia, unspecified; Z79.899 Other long term (current) drug therapy
CPT/HCPCS: 36415; 80051; 82550; 82565; 84450; 84460; 84520

== ENCOUNTER 2024-10-12 08:13 | Outpatient (AMB) | payer MEDICARE, SELFPAY ==
--- NOTE | 2024-10-12 08:34 | A.OFFVIS_ITS ---
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 He states that recently he is noticing exertional shortness of breath and can barely do anything. No clear-cut chest pains. No known coronary disease myocardial infarction or cardiomyopathy. He is on medications for hypertension and dyslipidemia. No documented coronary disease or myocardial infarction. FORMERLY [facility], [facility]–1983 Medical History (Updated 10/12/24 @ 09:31 by Jonh Amaral MD) GERD (gastroesophageal reflux disease) BPH (benign prostatic hyperplasia) Hyperlipidemia Hypertension Surgical History S/P cardiac catheterization History of heart artery stent Family History Father No problems noted. Mother No problems noted. Social History Household Members: Spouse and Children Housing: House Do you presently have visiting nurse or other home services: No Alcohol intake: current Alcohol intake frequency: holidays/special occasions only Patient Tobacco Use Status: Former Tobacco user service: No Review of Systems Const Denies chills, Denies fatigue, Denies fever(s), Denies weight gain and Denies weight loss ENT Denies dizziness Card Denies chest pain, Denies leg edema, Denies lightheadedness, Reports palpitations, Reports dyspnea on exertion, Denies orthopnea and Denies other Resp Denies cough and Reports dyspnea on exertion GI Denies hematochezia and Denies change in stool character Musc Denies abnormal gait, Denies muscle weakness, Denies numbness, Denies radiating pain into limb and Denies tingling Neuro Denies abnormal gait, Denies dizziness, Denies numbness and Denies tingling Endo Denies fatigue and Reports palpitations Physical Exam Vital Signs: Last Vital Signs Pulse 54 10/12/24 08:35 BP 178/58 H 10/12/24 08:35 BMI result Body Mass Index 27.9 Const General: comfortable and no acute distress Orientation/consciousness: patient oriented x3 HEENT Other: Unremarkable Head: Yes normal to inspection Neck Neck: Yes normal visual inspection Chest Chest palpation & inspection: normal inspection of the chest Resp Auscultation: clear to auscultation bilaterally Cardio Palpation: normal PMI Heart sounds: S1 normal heart sound present, S2 normal heart sound present, no gallops, no murmurs and no rubs GI Palpation (GI): Soft to palpation Back/Spine/Pelvis Other: unremarkable Skin General skin exam: no rashes or lesions noted Neuro General: patient oriented x3 Extrem General: Yes normal to inspection Psych Mental Status: mental status grossly normal Assessment & Plan Assessment & Plan (1) Atherosclerotic cardiovascular disease: Code(s): I25.10 - Atherosclerotic heart disease of [place] coronary artery without angina pectoris Category: Medical (2) Presence of stent in LAD coronary artery: Code(s): Z95.5 - Presence of coronary angioplasty implant and graft Category: Medical (3) Primary hypertension: Code(s): I10 - Essential (primary) hypertension Category: Medical Plan Cardiac catheterization data reviewed. Severe mid LAD stenosis. Status post PCI. Diffuse moderate disease proximally in the LAD with heavy calcification. Mild disease in circumflex and no significant disease in the RCA. Continue long-term aspirin. Plavix for about a year from time of PCI. With regard to blood pressure, seems quite high. Increase amlodipine to 10 mg daily. Due to interaction with amlodipine, can switch simvastatin to atorvastatin. Changes discussed with patient and he agrees. He will check home blood pressures and contact us for follow-up. Follow-up in 6 months. Medications: New amlodipine 10 mg PO DAILY 90 tabs 3RF atorvastatin 40 mg PO QPM 90 tabs 3RF Discontinued amlodipine (Norvasc) Discontinued Reason: Doctor's Order 5 mg PO DAILY 30 tabs 5RF Coding Level of Care Code Est Pt Level 4 (08664) Diagnoses Atherosclerotic cardiovascular disease I25.10 Presence of stent in LAD coronary artery Z95.5 Primary hypertension I10
[2024-10-12 08:35] VITALS: BP 178/58; PULSE 54; BMI 27.9
== END 2024-10-12 09:08 | disposition home or self-care (01) ==
PROVIDERS: PCP Family Medicine; Visit Provider Internal Medicine
DX: I25.10 Atherosclerotic heart disease of native coronary artery without angina pectoris (principal); Z95.5 Presence of coronary angioplasty implant and graft; I10 Essential (primary) hypertension
CPT/HCPCS: 99214

== ENCOUNTER → 2024-10-12 08:13 | Outpatient (BNVA) | payer MEDICARE, SELFPAY | PROVIDERS: PCP Family Medicine; Visit Provider Internal Medicine | DX: I25.10 Atherosclerotic heart disease of native coronary artery without angina pectoris (principal); I10 Essential (primary) hypertension; Z95.5 Presence of coronary angioplasty implant and graft | CPT/HCPCS: 99212 ==

== ENCOUNTER 2024-12-20 07:43 | Outpatient (REF) | payer MEDICARE, SELFPAY ==
--- NOTE | ~2024-12-20 | XR_ITS ---
EXAMINATION: XR SINUSES CLINICAL INFORMATION: CONGESTION,SINUSITIS COMPARISON: Report from CT sinus 06/18/2011. Images are not available. TECHNIQUE: 3 views of the sinuses were obtained. FINDINGS: Mild mucosal thickening suspected in the right maxillary sinus without air-fluid level. Remainder of the paranasal sinuses appear pneumatized without air-fluid levels. Mastoids appear aerated. No suspicious bony abnormalities. Orbits are intact. Nasal septum is essentially midline. XR/XR sinus min 3V IMPRESSION: Findings suggesting mild sinus mucosal disease in the right maxillary sinus. No air-fluid levels present. Remainder of the paranasal sinuses appear normally aerated. If warranted, CT is more sensitive. Electronically signed by: Lucas Turpin MD 12/20/2024 08:52 AM J[facility] BILLS
--- NOTE | ~2024-12-20 | XR_ITS ---
EXAMINATION: XR CHEST CLINICAL INFORMATION: SOB,CONGESTION COMPARISON: 07/27/2023, 09/18/2015. Correlation made with CTPA 06/16/2024. TECHNIQUE: 2 views of the chest were obtained. FINDINGS: Cardiac silhouette is mildly enlarged. Mediastinal and hilar contours are otherwise normal. Prominent epicardial fat pad present. Lungs are mildly hyperaerated and there are scattered calcified granulomata present. Mild flattening of the hemidiaphragms. Findings are consistent with COPD. Increased bronchovascular markings present in the right lower lobe distribution, possibly suggesting inflammatory airways disease or bronchopneumonia. Lungs otherwise clear. No effusion or pneumothorax. There is no focal osseous or soft tissue abnormality. Degenerative changes in the shoulder joints and spine. XR/XR chest 2V IMPRESSION: 1. COPD and mild cardiomegaly. 2. Increased bronchovascular markings in the right lower lobe distribution, possibly suggesting inflammatory airways disease or bronchopneumonia. Electronically signed by: Lucas Turpin MD 12/20/2024 08:49 AM JV
== END 2024-12-20 07:44 | disposition home or self-care (01) ==
LOC: HO.XRAY 07:43
PROVIDERS: PCP Family Medicine; Visit Provider Family Medicine
DX: J44.9 Chronic obstructive pulmonary disease, unspecified (principal); I51.7 Cardiomegaly; J32.9 Chronic sinusitis, unspecified; R09.81 Nasal congestion
CPT/HCPCS: 70220; 71046

== ENCOUNTER → 2024-12-20 07:49 | Outpatient (BNV) | payer MEDICARE, SELFPAY | PROVIDERS: PCP Family Medicine; Visit Provider Radiology Diagnostic Radiology | DX: J01.90 Acute sinusitis, unspecified (principal); R09.81 Nasal congestion; J44.9 Chronic obstructive pulmonary disease, unspecified | CPT/HCPCS: 70220; 71046 ==

== ENCOUNTER 2025-01-04 06:01 | Outpatient (REF) | payer MEDICARE, SELFPAY ==
--- OUTSIDE RECORDS SUMMARY | 2025-01-04 06:05 | XMS_ITS | Continuity of Care Document ---
Author Organization [facility] Address [address] [place] [address] [address] [place] [id number] Phone Care Team Providers Care Customer Response Representative Name Role Phone Marko ROMERO FACS [...] Providers Copied on Encounter [facility], [address] [place] [address] [address], [place], [id number], [place] tel:[phone] CVR [facility] No Information 3 Marko ROMERO FACS TRUMAN [address]. [address] [facility] [address], [place], [address], [place]. tel:[phone] Referring Provider: Trip Blanton MD , [address] [place] [address] Dr [address], [place], [address]. tel:[phone] Office/Outpt E&M Established 10 Mins [facility], [address] [place] [address] Dr [address], [id number], [place] tel:[phone] [facility] - [place] Localized edema 3 Marko ROMERO FACS TRUMAN [address]. [address] [facility], [address], [place], [address], [place]. tel:[phone] Referring Provider: Trip Blanton MD S, [address] [place] [address] Dr [address], [place], [address]. tel:[phone] [facility], [address] [place] [address] Dr [address], [id number], [place] tel:[phone] [facility]R [place] Pain in right leg 3 Marko ROMERO FACS Sheri [address]. [address] [facility], [address], [place], [address], [place]. tel:[phone] Referring Provider: Trip Blanton MD S, [address] [place] [address] Dr [address], [place], [address]. 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 [address] [facility], [address], [place], [place], [id number] , [place]. tel:[phone] Referring Provider: Trip Blanton MD S, [address] [place] [address] Dr [address], [place], [address]. tel:[phone] [facility], [address] [place] [address] Dr [address], [id number], [place] tel:[phone] CVR - [place] No Information 3 Marko ROMERO FACS Sheri Kruse. [address] [facility], [address], [place], [address], [place]. tel:[phone] Referring Provider: Trip Blanton MD S, [address] [place] [address] Dr [address], [place], [address]. tel:[phone] [facility], [address] [facility] [address], [place], [id number], [place] tel:[phone] [facility] No Information 3 Marko ROMERO FACS RVT OLIVERIO [address]. [address] [facility], [address], [place], [address], [place]. [phone] Referring Provider: Trip Blanton MD S, [address] [place] [address] Dr [address], [place], [address]. tel:[phone] Family History Family Member Type Diagnosis Age At Onset No Information Payers Payer name Insurance type Covered libertarian ID Authoriza [email or web address](s) [facility] AARP Medic are Complete CI [id number] Social History Type Description Quantity Date Captured [...]
[2025-01-04 07:18] LABS: Alanine Aminotransferase 10 U/L (0-40); Anion Gap 12 (12-20); Aspartate Amino Transferase 17 U/L (5-37); Blood Urea Nitrogen 32 mg/dL (9-16); Carbon Dioxide 21 mmol/L (22-29); Chloride 112 mmol/L (96-108); Estimated Glomerular Filt Rate 48; Potassium 4.1 mmol/L (3.3-5.1); Sodium 141 mmol/L (135-145)
[2025-01-04 08:25] LABS: Appearance Urine Turbid; Color Urine Yellow; Glucose Urine UA Negative (Negative); Leukocyte Esterase Urine Large (3+) (Negative); Nitrite Urine Negative (Negative); PH 6.5 (5.0-9.0); UMIC TRIGGER UACC YES; Urine Blood Moderate (2+) (Negative); Urine Ketones Negative (Negative); Urine Protein 100 (2+) mg/dL (Neg-Trace)
[2025-01-04 08:41] LABS: Bacteria Urine 3+ (None Seen); Hyaline Casts Urine 0-2 /LPF (0-2); Squamous Epithelial Cell Urine 0-2 /HPF (0-2); UACC Culture Trigger YES; WBC Clumps Urine Present; WBC Urine >50 /HPF (0-5)
== END 2025-01-04 06:02 | disposition home or self-care (01) ==
LOC: HO.LAB 06:01
PROVIDERS: PCP Family Medicine; Visit Provider Family Medicine
DX: I10 Essential (primary) hypertension (principal); E78.00 Pure hypercholesterolemia, unspecified; R30.0 Dysuria; B96.89 Other specified bacterial agents as the cause of diseases classified elsewhere
CPT/HCPCS: 36415; 80051; 81001; 81003; 82550; 82565; 84450; 84460; 84520; 87086; 87088; 87186

== ENCOUNTER 2025-05-08 06:04 | Outpatient (REF) | payer MEDICARE, SELFPAY ==
[2025-05-08 07:41] LABS: Anion Gap 12 (12-20); Blood Urea Nitrogen 29 mg/dL (9-16); Calcium 8.5 mg/dL (8.4-10.2); Carbon Dioxide 24 mmol/L (22-29); Chloride 113 mmol/L (96-108); Estimated Glomerular Filt Rate 51; Glucose Random 149 mg/dL (60-115); Potassium 3.8 mmol/L (3.3-5.1); Sodium 145 mmol/L (135-145)
[2025-05-08 08:03] LABS: Prostate Specific Antigen 0.68 ng/mL (<0.05-4.0)
== END 2025-05-08 06:05 | disposition home or self-care (01) ==
LOC: HO.LAB 06:04
PROVIDERS: PCP Family Medicine; Visit Provider Physician Assistant
DX: Z12.5 Encounter for screening for malignant neoplasm of prostate (principal); N40.1 Benign prostatic hyperplasia with lower urinary tract symptoms
CPT/HCPCS: 36415; 80048; 84153

== ENCOUNTER 2025-05-22 12:22 | Outpatient (AMB) | payer MEDICARE, SELFPAY ==
--- NOTE | 2025-05-22 12:31 | MHC.OFFVIS ---
Vital Signs 05/22/25 12:32 Height 5 ft 9 in Weight 191 lb 12.835 oz BMI 28.3 BP 144/50 H Blood Pressure Location Lt brachial Position Sitting Pulse 62 Intake Visit Reasons: r/s 04/20/25 6 mos followup Intake Note: 6 month follow-up with ekg feeling ok sometime heart races Allergies No Known Allergies Allergy (Verified 06/16/24 11:00) Medication List - Last Reconciled 05/22/25 by Jonh Amaral MD amlodipine 10 mg PO DAILY aspirin 81 mg PO BEDTIME atorvastatin 40 mg PO QPM clopidogrel (Plavix) 75 mg PO DAILY 30 days finasteride 5 mg PO DAILY metoprolol tartrate 50 mg PO BID HPI Comments Details: Narendra returns for follow-up regarding coronary artery disease. Overall, he states he feels well. No clear-cut complaints like angina or shortness of breath or in fact anything cardiac related. Seems to be getting along okay. [facility] Medical History (Updated 10/12/24 @ 09:31 by Jonh Amaral MD) GERD (gastroesophageal reflux disease) BPH (benign prostatic hyperplasia) Hyperlipidemia Hypertension Surgical History S/P cardiac catheterization History of heart artery stent Family History Father No problems noted. Mother No problems noted. Social History Household Members: Spouse and Children Housing: House Do you presently have visiting nurse or other home services: No Alcohol intake: current Alcohol intake frequency: holidays/special occasions only Patient Tobacco Use Status: Former Tobacco user service: No Review of Systems Const Denies chills, Denies fatigue, Denies fever(s), Denies frequent falls, Denies weakness, Denies weight gain and Denies weight loss ENT Denies dizziness Card Denies chest pain, Denies leg edema, Denies lightheadedness, Denies palpitations, Denies dyspnea, Denies dyspnea on exertion, Denies orthopnea and Denies other (loss of consciousness) Resp Denies cough, Denies dyspnea and Denies dyspnea on exertion GI Denies hematochezia and Denies change in stool character Musc Denies abnormal gait, Denies muscle weakness, Denies numbness, Denies radiating pain into limb and Denies tingling Neuro Denies abnormal gait, Denies dizziness, Denies frequent falls, Denies numbness, Denies tingling and Denies weakness Endo Denies fatigue and Denies palpitations Physical Exam Vital Signs: Last Vital Signs Pulse 62 05/22/25 12:32 BP 144/50 H 05/22/25 12:32 BMI result Body Mass Index 28.3 Const General: comfortable and no acute distress Orientation/consciousness: patient oriented x3 HEENT Other: Unremarkable Head: Yes normal to inspection Neck Neck: Yes normal visual inspection Chest Chest palpation & inspection: normal inspection of the chest Resp Auscultation: clear to auscultation bilaterally Cardio Palpation: normal PMI Heart sounds: S1 normal heart sound present, S2 normal heart sound present, no gallops, no murmurs and no rubs GI Palpation (GI): Soft to palpation Back/Spine/Pelvis Other: unremarkable Skin General skin exam: no rashes or lesions noted Neuro General: patient oriented x3 Extrem General: Yes normal to inspection Psych Mental Status: mental status grossly normal Office Procedures EKG Details: EKG with sinus rhythm at 62/Min; nonspecific ST-T changes; [place]. [address]-[id number], Complete Assessment & Plan Assessment & Plan (1) Atherosclerotic cardiovascular disease: Code(s): I25.10 - Atherosclerotic heart disease of [place] coronary artery without angina pectoris Category: Medical (2) Presence of stent in LAD coronary artery: Code(s): Z95.5 - Presence of coronary angioplasty implant and graft Category: Medical (3) Primary hypertension: Code(s): I10 - Essential (primary) hypertension Category: Medical Plan Cardiac catheterization reviewed from 05/2024. Severe mid LAD stenosis. Status post PCI. Diffuse moderate disease proximally in the LAD with heavy calcification. Mild disease in circumflex and no significant disease in the RCA. Continue long-term aspirin. He can finish the current supply of Plavix and then stopped. With regard to blood pressure, slightly high. Home diary reviewed and he has got lot of normal readings and some borderline high readings in the 130s and at most into the 140s. No further changes today. Continue statins. Lipids are well controlled. Follow up in 6 months. In the interim, he will call with concerns. Discussion Notes I discussed with the patient the importance of monitoring his blood pressure at home and maintaining stable readings. We reviewed his current antiplatelet therapy, and I advised him to discontinue Plavix after completing his current supply, while continuing with low-dose aspirin. A follow-up appointment was scheduled for six months to reassess his blood pressure and antiplatelet regimen. Patient was informed and verbally consented to the use of an ambient scribe for clinic note documentation during this visit. Patient Instructions: - Monitor your blood pressure at home regularly. - Finish your current Plavix prescription, then stop taking it. - Continue taking low-dose aspirin daily. - Return for a follow-up appointment in six months. Coding Level of Care Code Est Pt Level 4 (33325) Complex EM visit Add On G2211 Diagnoses Atherosclerotic cardiovascular disease I25.10 Presence of stent in LAD coronary artery Z95.5 Primary hypertension I10 CPT Codes EKG - CPT: 62873-[id number], Complete ([id number])
[2025-05-22 12:32] VITALS: BP 144/50; PULSE 62; BMI 28.3
== END 2025-05-22 12:54 | disposition home or self-care (01) ==
LOC: HO.HCS 12:23
PROVIDERS: PCP Family Medicine; Visit Provider Internal Medicine
DX: I25.10 Atherosclerotic heart disease of native coronary artery without angina pectoris (principal); Z95.5 Presence of coronary angioplasty implant and graft; I10 Essential (primary) hypertension
CPT/HCPCS: 93010; 99214; G2211

== ENCOUNTER → 2025-05-22 12:22 | Outpatient (BNVA) | payer MEDICARE, SELFPAY | PROVIDERS: PCP Family Medicine; Visit Provider Internal Medicine | DX: I25.10 Atherosclerotic heart disease of native coronary artery without angina pectoris (principal); I10 Essential (primary) hypertension; Z95.5 Presence of coronary angioplasty implant and graft; R94.31 Abnormal electrocardiogram [ECG] [EKG] | CPT/HCPCS: 93005; 99212 ==

== ENCOUNTER 2025-08-01 08:36 | Outpatient (AMB) | payer MEDICARE, SELFPAY ==
--- OUTSIDE RECORDS SUMMARY | 2023-09-04 06:44 | XMS_ITS | Continuity of Care Document ---
Author Organization [facility] Address [address] [place] [address] [address] [place] [address] Phone Care Team Providers Care Teacher Music Name Role Phone Marko ROMERO FACS Payam [...] Providers Copied on Encounter [facility], [address] [place] [address] [address], [place], [id number], [place] tel:[phone] [facility]R [facility] No Information 3 Marko ROMERO FACS TRUMAN Kruse. [address] [facility] [address], [place], [address], [place]. tel:[phone] Referring Provider: Trip Blanton MD , [address] [place] [address] Dr [address], [place], [address]. tel:[phone] Office/Outpt E&M Established 10 Mins [facility], [address] [place] [address] Dr [address]Mar[place], [id number], [place] tel:[phone] [place] Localized edema 3 Marko ROMERO FACS TRUMAN Kruse. [address] [facility], [address], [place], [address], [place]. tel:[phone] Referring Provider: Trip Blanton MD S, [address] [place] [address] Dr [address], [place], [address]. tel:[phone] [facility], [address] [place] [address] Dr [address]Mar[place], [id number], [place] tel:[phone] [facility] Pain in right leg 3 Marko ROMERO FACS Sheri Kruse. [address] [facility], [address], [place], [address], [place]. tel:[phone] Referring Provider: Trip Blanton MD S, [address] [place] [address] Dr [address], [place], [address]. 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 [address] [facility], [address], [place], [place], [id number] , [place]. tel:[phone] Referring Provider: Tirp Blanton MD S, [address] [place] [address] Dr [address], [place], [address]. tel:[phone] [facility], [address] [place] [address] Dr [address]Mar[place], [id number], [place] tel:[phone] [facility] No Information 3 Marko ROMERO FACS Sheri Kruse. [address] [facility], [address], [place], [address], [place]. tel:[phone] Referring Provider: Trip Blanton MD S, [address] [place] [address] Dr [address], [place], [address]. tel:[phone] [facility], [address] [facility] [address], [place], [id number], [place] tel:[phone] [facility] No Information 3 Marko ROMERO FACS RVT OLIVERIO Kruse. [address] [facility], [address], [place], [address], [place]. [phone] Referring Provider: Trip Blanton MD S, [address] [place] [address] Dr [address], [place], [address]. tel:[phone] Family History Family Member Type Diagnosis Age At Onset No Information Payers Payer name Insurance type Covered libertarian ID Authoriza tibetzy(s) [facility] AARP Medic are Complete CI [id number] Social History Type Description Quantity Date Captured [...]
--- NOTE | 2025-08-01 08:37 | A.OFFPC_ITS ---
Vital Signs 08/01/25 08:42 Height 5 ft 9 in Weight 196 lb BMI 28.9 BP 154/50 H Blood Pressure Location Lt brachial Position Sitting Respiration 20 Pulse 55 Pulse Source Pulse Oximeter Temp 97.5 F Temp Source Temporal Artery Scan Pulse Oximetry (%) 97 Oxygen Delivery Method Room Air Intake Visit Reasons: Routine Dr. Blanton's Pt. req. notes from [employer] [employer] Required: No Allergies No Known Allergies Allergy (Verified 08/01/25 08:37) Tobacco use date assessed: 08/01/25 Fall risk assessment: No Falls in past year Last assessed Fall Risk: 08/01/25 HPI HPI Comments History of Present Illness Details The patient is an 85-year-old male presenting with symptoms including leg swelling and sinus issues. The leg swelling started around 2018, after a trip to [place], when he had an infection in the leg that resolved, but the swelling persisted. He reports wearing compression socks for over six years, which do not alleviate the swelling. An ultrasound in the past ruled out blood clots. The patient describes the swelling as persistent and is associated with difficulty walking due to fatigue. It was suggested that this could be due to lymphedema. He also reports chronic sinus problems characterized by nasal congestion primarily at night, impacting his breathing through the nose. A trial of humidification and nasal spray was attempted without relief. The patient does not experience orthopnea or paroxysmal nocturnal dyspnea related to his sinus condition but does mention hearing difficulties, which may be related. In terms of his chronic medical problems, the patient has a history of coronary artery disease with the placement of a stent, essential hypertension, hyperlipidemia, and benign prostatic hyperplasia. He takes amlodipine, metoprolol, aspirin, atropistane, Plavix, finasteride, and tamsulosin to manage these chronic conditions. Shortness of breath is noted, possibly related to his cardiac history or pleural conditions, though he denied any chest pain, diarrhea, constipation, nausea, or vomiting. Medical History: - Essential Hypertension - Hyperlipidemia - Coronary Artery Disease with stent josselyn cement - Benign Prostatic Hyperplasia - Chronic Sinusitis - Lymphedema Surgical History: - Coronary stent placement Medications: - Amlodipine for hypertension - Metoprolol for hypertension - Aspirin for coronary stent - Atorvastatin for hyperlipidemia - Plavix for coronary stent - Finasteride for benign prostatic hyper plasia - Tamsulosin for benign prostatic hyperp lasia Family History: - No family history of heart disease or cancer reported - Former smoker, quit approximately 25-3 0 years ago after smoking for about 45 years - No current tobacco use PFSH Medical History (Updated 08/01/25 @ 09:02 by Anthony Peralta MD) GERD (gastroesophageal reflux disease) BPH (benign prostatic hyperplasia) Hyperlipidemia Hypertension Surgical History S/P cardiac catheterization History of heart artery stent Family History Father No problems noted. Mother No problems noted. Social History Household Members: Spouse and Children Housing: House Do you presently have visiting nurse or other home services: No Alcohol intake: current Alcohol intake frequency: holidays/special occasions only Patient Tobacco Use Status: Former Tobacco user Tobacco use type: Cigarette e-Cigarette/Vaping Use: Never Used service: No Current occupational status: retired Questionnaire PHQ-9 Over the last 2 weeks, how often have you been bothered by any of the following problems? 1. Little interest or pleasure in doing things: not at all 2. Feeling down, depressed, or hopeless: not at all 3. Trouble falling or staying asleep, or sleeping too much: not at all 4. Feeling tired or having little energy: not at all 5. Poor appetite or overeating: not at all 6. Feeling bad about yourself - or that you are a failure or have let yourself or your family down: not at all 7. Trouble concentrating on things, such as reading the newspaper or watching television: not at all 8. Moving or speaking so slowly that other people could have noticed. Or the opposite - being so fidgety or restless that you have been moving around a lot more than usual: not at all 9. Thoughts that you would be better off or of hurting yourself in some wa y: not at all Total score: 0 Depression Screening Interpretation: Negative Depression Screening Done: Yes 13148 - PHQ-9 Billing: Yes Source: Developed by Drs. Junior Cristina, Pat Velasquez, Enrike Hayden and colleagues, with an educational jm from [employer]. Thrive Questionnaire Date Thrive assessed: 07/28/23 What is your living situation today?: I have a steady place to live Within the past 12 months, did the food you bought not last and you didn't have the money to get more?: Never true Within the past 12 months, did you worry whether your food would run out before you got money to buy more?: Never true Do you have trouble paying for medicines?: No Do you have trouble getting transportation to medical appointments?: No Do you have trouble paying your heating and electricity bill?: No Do you have trouble taking care of your child, family member or friend?: No Do you have trouble with day-to-day activities such as bathing, preparing meals, shopping, managing finances, etc.?: No Are you currently unemployed and looking for a job?: No Are you interested in more education?: No THRIVE Score: 0 AUDIT C Alcohol Use Questionnaire (AUDIT-C) 1. How often do you have a drink containing alcohol?: Monthly or less 2. How many drinks containing alcohol do you have on a typical day when you are drinking?: 1 or 2 Total Score: 1 Score Reviewed/Action Taken: Yes DYLAN-7 AMB Questionnaire DYLAN-7 Date DYLAN - 7 assessed: 08/01/25 Feeling nervous, anxious, or on edge: 0 = Not at all Not being able to stop or control worryin = Not at all Worrying too much about different things: 0 = Not at all Trouble relaxin = Not at all Being so restless that it is hard to sit still: 0 = Not at all Becoming easily annoyed or irritable: 0 = Not at all Feeling afraid as if something awful might happen: 0 = Not at all Total DYLAN-7 score (0-4 normal; 5-9 mild; 10-14 moderate; 15-21 severe): 0 Source: Developed by Drs. Junior Cristina, Pat Velasquez, Enrike Hayden and colleagues, with an educational jm from [employer]. DYLAN-7 Assessment Billing DYLAN-7 Assessment Tool: DYLAN-7 Assessment 03220 Review of Systems Const Details: - Cardiovascular: Denies chest pain. Reports leg swelling and shortness of breath. - Respiratory: Denies wheezing. Reports shortness of breath. - Gastrointestinal: Denies nausea, vomiting, diarrhea, or constipation. - Genitourinary: Reports no difficulty urinating. - Neurological: Denies headaches. - Musculoskeletal: Reports leg swelling. - Integumentary: Reports lesion on hands and face. - Ears/Nose/Throat: Reports nasal congestion and hearing difficulty. - Psychiatric: Denies complaints. - General: Denies vision problems. Physical exam (Primary Care) Vital Signs: Last Vital Signs Temp 97.5 F 08/01/25 08:42 Pulse 55 08/01/25 08:42 Resp 20 08/01/25 08:42 BP 154/50 H 08/01/25 08:42 Pulse Ox 97 08/01/25 08:42 Oxygen Delivery Method Room Air 08/01/25 08:42 BMI result Body Mass Index 28.9 Tobacco/Smoking Status: Tobacco use Status Tobacco use date assessed 08/01/25 08/01/25 08:45 Patient Tobacco Use Status Former Tobacco user 08/01/25 08:45 Tobacco use type Cigarette 08/01/25 08:45 e-Cigarette/Vaping Use Never Used 08/01/25 08:45 Depression Screening Interpretation: Negative Thrive Assessment: Date of Thrive Assessment Date Thrive assessed 07/28/23 08/01/25 08:45 Const Other: General: +Alert and oriented, Well nourished, No acute distress. Eye: Pupils are equal, round and reactive to light, Intact accommodation, Extraocular movements are intact, Normal conjunctiva, Vision unchanged. HENT: Normocephalic, Atraumatic, Tympanic membranes are clear, Hearing problems noted, Oral mucosa is moist, No pharyngeal erythema, Ear canals patent. Respiratory: Lungs CTA bilaterally, No wheeze, Respirations are non-labored, Shortness of breath reported. Cardiovascular: Regular rate, Regular rhythm, S1 auscultated, S2 auscultated, No murmur, Good pulses equal in all extremities, Normal peripheral perfusion, No edema noted, but patient reports swollen legs. Gastrointestinal: Soft, Non-tender, Non-distended, Normal bowel sounds, No organomegaly. Musculoskeletal: Normal range of motion, Normal strength, No tenderness, No swelling, No deformity, Normal gait. Integumentary: Warm, Dry, [place], Intact, Lesions noted on the back of hands and face. Neurologic: Alert, Oriented, Normal sensory, Normal motor function, No focal defects, Cranial Nerves II-XII are grossly intact, Normal deep tendon reflexes. Psychiatric: Cooperative, Appropriate mood & affect, Normal judgment. Coding Level of Care Code New Pt Level 4 (62260) Complex EM visit Add On G2211 Diagnoses SOB (shortness of breath) R06.02 Primary hypertension I10 S/P cardiac catheterization Z98.890 Nasal congestion R09.81 Additional Codes PHQ-9 - 46460 - PHQ-9 Billing: Yes ([id number]) DYLAN-7 Assessment Billing - DYLAN-7 Assessment Tool: DYLAN-7 Assessment 39226 ([id number]) Assessment & Plan Assessment & Plan (1) SOB (shortness of breath): Comment: Reports worsening shortness of breath for extended period time in addition to associated lower extremity swelling. At this time could possibly be from underlying cardiac causes given his prior history of coronary artery disease therefore we will obtain echo and also help evaluate for possible pulmonary hypertension given the type of swelling in shortness of breath again heart failure ulcer remains thin etiology. If echo remains negative we will consider other etiologies. Code(s): R06.02 - Shortness of breath Category: Medical Plan: Order echo (2) Primary hypertension: Comment: - Elevated pressures in clinic however well controlled at home Code(s): I10 - Essential (primary) hypertension Category: Medical (3) S/P cardiac catheterization: Comment: 06/14/[address] Seay Angiographic Findings Cardiac Arteries and Lesion Findings LMCA: Mild disease distal left main. LAD: Mid LAD 40% calcified stenosis. First diagonal ostium has 70% stenosis. Lesion in Mid LAD: 95% stenosis .Bifurcation lesion. Lesion in Mid LAD: Distal subsection.Bifurcation lesion. Lesion in 1st Diag: LCx: Mild luminal irregularities (<30%). RCA: Mild luminal irregularities (<30%). PCI to mid LAD Code(s): Z98.890 - Other specified postprocedural states Category: Surgical Plan: - Continue to monitor (4) Nasal congestion: Comment: Will trial fluticasone and evaluate if there is improvement in symptoms. Reports an extended period of symptoms with no relief with humidier and worse at night. If this conitnues will refer to ENT Code(s): R09.81 - Nasal congestion Category: Medical Plan: Trial of Fluticasone Plan 1. Essential Hypertension - The patient's blood pressure is currently elevated at 155/154 mmHg, but he reports lower readings at home. Continue current antihypertensive therapy with amlodipine and metoprolol as evidenced by better readings at home. 2. Hyperlipidemia - Continue atorvastatin and Plavix therapy, as these are vital in secondary prevention strategies for his coronary artery disease. 3. Benign Prostatic Hyperplasia - Continue finasteride and tamsulosin as they are providing benefit for urinary symptoms. No change to the regimen as the patient reports no urinary difficulties. 4. Coronary Artery Disease with stent - Advised continuation of dual antiplatelet therapy with aspirin and Plavix. Monitor heart function through an echocardiogram to assess cardiac output and pulmonary pressures, given the history of leg swelling and shortness of breath. 5. Sinus Congestion - Trial a nasal spray for seven days as noted in the past. Consider sinusitis management and reassessment if symptoms persist. Use a humidifier during the winter as previously mentioned. 6. Lymphedema - Continue the use of compression stockings. Reassessment of the need for further interventions if swelling persists in effectiveness. Further cardiac and pulmonary evaluation was initiated to exclude underlying causes. 7. Hearing difficulty - Patient reports issues perhaps related to sinus congestion. Consider ENT referral if symptoms persist post-intervention with nasal spray. Discussed with the patient his current symptomology, including chronic leg swelling and sinus congestion. We reviewed his history of essential hypertension, hyperlipidemia, coronary artery disease, benign prostatic hyperplasia, and his past treatment regimens. The plan includes continuous monitoring and maintaining current treatment regimens, especially given his good blood pressure control at home. Emphasized the importance of regular echocardiograms due to shortness of breath and edema to rule out cardiac causes such as pulmonary hypertension. Comprehensive patient instructions regarding the usage of current, educational interventions, and recommendations for sinus congestion management were provided. Reassured the patient about his health maintenance, consented to continue with prescribed medications and support for a repeat echocardiogram. Follow-up arranged for three months, or sooner if necessary. Orders: Orders Complete Blood Count Auto Diff Today I10 - Essential (primary) hypertension Hemoglobin A1c Today I10 - Essential (primary) hypertension Vitamin D 25-OH Total Today I10 - Essential (primary) hypertension CA echo transthoracic complete Today R06.02 - Shortness of breath Comprehensive Met. Panel Today I10 - Essential (primary) hypertension Lipid Panel Today I10 - Essential (primary) hypertension TSH reflex Free T4 Today I10 - Essential (primary) hypertension Medications: New fluticasone propionate 50 mcg/actuation (Allergy Relief (fluticasone)) administer into each nostril 1 spray intranasal BID 16 grams 0RF 7 days R09.81 - Nasal congestion Patient Instructions: Patient Instructions - Continue taking all medications as prescribed. - Monitor blood pressure daily and maintain a log. - Use the nasal spray provided exactly as instructed for seven days only. - Continue wearing compression stockings for leg swelling. - Schedule and attend the echocardiogram appointment to assess heart function. - Use a humidifier during winter months to ease congestion. - Report any new or worsening symptoms, especially breathing difficulties, urgently. - Return to clinic in three months or sooner if current conditions do not im prove.
[2025-08-01 08:42] VITALS: BP 154/50; PULSE 55; RESP 20; TEMP 36.4; O2SAT 97; BMI 28.9
== END 2025-08-01 09:08 | disposition home or self-care (01) ==
PROVIDERS: PCP Student in an Organized Health Care Education/Training Program; Visit Provider Student in an Organized Health Care Education/Training Program
DX: R06.02 Shortness of breath (principal); I10 Essential (primary) hypertension; Z98.890 Other specified postprocedural states; R09.81 Nasal congestion

== ENCOUNTER → 2025-08-01 08:36 | Outpatient (BNVA) | payer MEDICARE, SELFPAY | PROVIDERS: PCP Family Medicine; Visit Provider Student in an Organized Health Care Education/Training Program | DX: R06.02 Shortness of breath (principal); I10 Essential (primary) hypertension; R09.81 Nasal congestion; E78.5 Hyperlipidemia, unspecified; N40.0 Benign prostatic hyperplasia without lower urinary tract symptoms; I25.10 Atherosclerotic heart disease of native coronary artery without angina pectoris; I89.0 Lymphedema, not elsewhere classified; Z79.02 Long term (current) use of antithrombotics/antiplatelets; Z79.82 Long term (current) use of aspirin; Z79.899 Other long term (current) drug therapy; Z95.5 Presence of coronary angioplasty implant and graft; Z13.31 Encounter for screening for depression; Z13.39 Encounter for screening examination for other mental health and behavioral disorders | CPT/HCPCS: 96127; 99202 ==

== ENCOUNTER → 2025-09-12 10:47 | Outpatient (REF) | payer MEDICARE, SELFPAY ==
--- NOTE | 2025-09-12 10:49 | CA_ITS ---
Transthoracic Echocardiogram Amended Patient (Last, First, Middle): Narendra Batista, Gender: M Date of : 1940 Age: 85 Procedure Date: 09/12/2025 Procedure Type: Transthoracic Echocardiogram Location: OP Height: 175.26 cm Weight: 87.54 kg BSA: 2.03 m2 Heart Rate: 57 bpm BP: 146 / 60 mmHg Wine Bottle Inspector: SB Referring MD: Anthony Peralta MD Symptoms: R06.02 - Shortness of breath Study Quality: Adequate ECG Rhythm: Bradycardia Conclusions: - The left ventricular systolic function is low normal. The visually estimated ejection fraction is between 50-55%. - The basal inferior and basal inferolateral segments are akinetic. - No obvious valvular pathology seen on this study. Findings Left Ventricle Normal left ventricular cavity size. The left ventricular systolic function is low normal. The visually estimated ejection fraction is between 50-55%. There is evidence of regional wall motion abnormalities. Evidence suggests grade I (mild) diastolic dysfunction. There is mild septal asymmetric hypertrophy. Wall Motion Rest Echo Findings The basal inferior and basal inferolateral segments are akinetic. Right Ventricle Mildly increased right ventricular cavity size. There is normal right ventricular systolic function. Atria Both atria are normal in size. Aortic Valve There is a normal trileaflet aortic valve. There is no aortic valve stenosis. There is no aortic valve regurgitation. Mitral Valve There is mild anterior mitral leaflet thickening. There is trace mitral valve regurgitation. There is no mitral valve stenosis. Pulmonic Valve The pulmonic valve is likely normal. Tricuspid Valve There is mild tricuspid valve regurgitation. There is no evidence of pulmonary hypertension. Great Vessels The asc aorta is normal in size. Small plaque is seen in the sino tubular ridge. Venous The inferior vena cava is normal in size and collapses greater than 50% with inspiration. Pericardium/Pleural There is no evidence of pericardial effusion. Prior Study Comparison No significant change compared to prior study dated: 07/28/2003. Wall motion abnormalities noted in prior images. Recommendations, Care & Conclusions No obvious valvular pathology seen on this study. Measurements 2D Linear Measurements IVSd: 1.19 0.6-0.9/0.6-1.0 cm LVIDd: 6.19 3.9-5.3/4.2-5.9 cm LVIDd Index: 3.05 2.4-3.2/2.2-3.1 cm/m2 LVIDs: 4.10 2.0-3.6 cm LVPWd: 0.77 0.7-1.1 cm LA Diam: 4.60 2.7-3.8/3.0-4.0 cm LAIDs Index: 2.27 1.5-2.3 cm/m2 LV Mass: 315.92 67-162/88-224 g LV Mass Index: 155.63 43-95/49-115 g/m2 LVOT Diam: 2.30 3.0+(-)1.3 cm 2D Volumes LA Vol: 32.40 2D Systolic Function EF 4C: 58.80 >55% EF 2C: 64.30 >55% EF BiP: 59.60 >55% Mitral Valve MV Pk E: 0.50 MV PK A: 0.78 MV Decel Time: 213.00 E/A: 0.60 E'Lateral: 5.22 E'Medial: 4.03 E/E' Med: 12.40 E/E' Lat: 9.60 PHT: 62.00 MVA PHT: 3.55 Decel Josephine: 2.35 Aortic Valve AoV Pk Kel: 1.32 AoV Pk Grad: 7.00 PAPO: 3.00 LVOT LVOT Pk Kel: 0.95 LVOT Mn Kel: 0.64 LVOT VTI: 0.21 LVOT Pk Grad: 4.00 LVOT Mn Grad: 2.00 LVOT Diam: 2.30 LVOT Area: 4.15 Diastolic Function MV Pk E: 0.50 MV Pk A: 0.78 E/A: 0.60 E'Medial: 4.03 E/E' Med: 12.40 E' Laterial: 5.22 E/E' Lat: 9.60 Right Ventricle TAPSE (mm): 30.90 TVS' Kel: 17.00 Tricuspid Valve TR Pk Kel: 2.60 TR Pk Grad: 27.00 RA Press: 3.00 RVSP: 30.00 Great Vessels Aorta Sinus of Valsalva: 3.70 2.0-3.5 cm Ao Asc: 3.50 2.1-3.4 cm Pulmonary Veins Pulm Vein S/D 1.70 Pulmonary Valve PV Pk Kle: 1.01 Peak PV Grad: 4.00 Updated in Other Vendor System with Status of Final Jonh Amaral MD electronically signed on 09/12/2025 12:29:48 PM with status of Final
== END ==
LOC: HO.CARD 10:47
PROVIDERS: Visit Provider Student in an Organized Health Care Education/Training Program
DX: R06.02 Shortness of breath (principal)
CPT/HCPCS: 93306

== ENCOUNTER → 2025-09-12 10:49 | Outpatient (BNV) | payer MEDICARE, SELFPAY | PROVIDERS: Visit Provider Internal Medicine | DX: I42.2 Other hypertrophic cardiomyopathy (principal); I51.89 Other ill-defined heart diseases | CPT/HCPCS: 93306 ==

== ENCOUNTER 2025-10-31 07:56 | Outpatient (AMB) | payer MEDICARE, SELFPAY ==
--- OUTSIDE RECORDS SUMMARY | 2023-09-04 05:44 | XMS_ITS | Continuity of Care Document ---
Author Organization [facility] Address [address] [place] [address] [address] [place] [address] Phone Care Team Providers Care Community Health Program Representative Name Role Phone Marko ROMERO FACS Payam RAGLAND Unavailable Unavailable Allergies, Adverse Reactions, Alerts Substance Reaction Status Criticality No Known Allergies Active No Inform ation Medications Medication Instructions Dosage Effective Dates (start - stop) Status Comments TAMSULOSIN HCL (unknown strength) Not Available - Active aspirin 81 mg tablet,delayed release - Active FINASTERIDE (unknown strength) Not Available - Active FUROSEMIDE (unknown strength) Not Available - Active SIMVASTATIN (unknown strength) Not Available - Active Procedures Procedure Date Office/Outpt E&M Established 10 Mins May Duplex Scan-extrem Veins; Uni/ Office/Outpt E&M Established 25 Mins Apr Advance Directives Directive Yes / No Effective Date File Name No Information Encounters Encounter Description Practice Location Reason(s) For Visit Diagnoses Date Provider Providers Copied on Encounter [facility], [address] [place] [address] [address], [place], [id number], [place] tel:[phone] [facility] No Information 3 Marko ROMERO FACS TRUMAN Kruse. [address] [facility] [address], [place], [address], [place]. tel:[phone] Referring Provider: Trip Blanton MD , [address] [place] [address] Dr [address], [place], [address]. tel:[phone] Office/Outpt E&M Established 10 Mins [facility], [address] [place] [address] Dr [address]Marry [place], [id number], [place] tel:[phone] [facility] [place] Localized edema 3 Marko ROMERO FACS TRUMAN Kruse. [address] [facility], [address], [place], [address], [place]. tel:[phone] Referring Provider: Trip Blanton MD S, [address] [place] [address] Dr [address], [place], [address]. tel:[phone] [facility], [address] [place] [address] Dr [address]Mar[place], [id number], [place] tel:[phone] [facility] [place] Pain in right leg 3 Marko ROMERO FACS Sheri Kruse. [address] [facility], [address], [place], [address], [place]. tel:[phone] Referring Provider: Trip Blanton MD S, [address] [place] [address] Dr [address], [place], [address]. 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 [address] [facility], [address], [place], [place], [id number] , [place]. tel:[phone] Referring Provider: Trip Blanton MD S, [address] [place] [address] Dr [address], [place], [address]. tel:[phone] [facility], [address] [place] [address] Dr [address]Mar[place], [id number], [place] tel:[phone] [facility] [place] No Information 3 Marko ROMERO FACS Sheri Kruse. [address] [facility], [address], [place], [address], [place]. tel:[phone] Referring Provider: Trip Blanton MD S, [address] [place] [address] Dr [address], [place], [address]. tel:[phone] [facility], [address] [facility] [address], [place], [id number], [place] tel:[phone] [facility] No Information 3 Marko ROMERO FACS RVT OLIVERIO Kruse. [address] [facility], [address], [place], [address], [place]. [phone] Referring Provider: Trip Blanton MD S, [address] [place] [address] Dr [address], [place], [address]. tel:[phone] Family History Family Member Type Diagnosis Age At Onset No Information Payers Payer name Insurance type Covered republican ID Authoriza tibetzy(s) [facility] AARP Medic are Complete CI [id number] Social History Type Description Quantity Date Captured Comments Sex Male Smoking Status No Information Chief Complaint And Reason For Visit No Information Reason For Referral Reason For Referral No Information Plan Of Treatment Date Type Action Status Goal Tobacco cessation counseling completed Goal Tobacco cessation counseling completed History Of Present Illness Encounter Date Complaint History Of Prese nt Illness No Information Functional Status Date Functional Assessmen t No Information Instructions Date Instruction Additional Infor mation No Information Assessments Type Assessment Date No Information Patient Care Teams Name Effective Dates (start - stop) Status Members No Information
--- NOTE | 2025-10-31 07:57 | A.OFFPC_ITS ---
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 Required: No Accompanied by: Self / Same As Patient Allergies No Known Allergies Allergy (Verified 10/31/25 07:59) Medication List - Last Reconciled 10/31/25 by Anthony Peralta MD amlodipine 10 mg PO DAILY aspirin 81 mg PO BEDTIME atorvastatin 40 mg PO QPM finasteride 5 mg PO DAILY furosemide (Lasix) 20 mg PO Q OTHER DAY loratadine 10 mg PO DAILY PRN metoprolol tartrate 50 mg PO BID tamsulosin 0.4 mg PO Tobacco use date assessed: 08/01/25 Fall risk assessment: No Falls in past year Last assessed Fall Risk: 10/31/25 HPI HPI Comments History of Present Illness Details History of Present Illness The patient is an 85 year old individual presenting for evaluation of chronic breathing problems related to sinus issues, shortness of breath, and leg swelling. The patient reports over a year of sinus problems, characterized by a stuffed and dry nose, particularly at night, which occurs in both summer and winter. These symptoms sometimes cause the patient to wake up gasping for air due to a blocked nose. Previous trials of a humidifier and various nasal sprays, including one prescribed previously, have not provided relief. The patient also experiences generalized itching, leading to a suspicion of allergies, with symptoms primarily occurring at home. The patient reports shortness of breath and swelling in the legs. An echocardiogram in August revealed a heart ejection fraction of 50-55% and grade 1 diastolic dysfunction, indicating the heart is not relaxing properly. The patient has a history of coronary artery disease treated with multiple stents and is followed by Dr. Amaral for cardiology. The patient also has lymphedema and uses a compression boot daily without notable improvement in leg swelling. The shortness of breath is significant enough that the patient needs to sit down after walking across the street. The patient has a history of smoking for 10-15 years but quit over [address] A prior [address] scan suggested underlying lung disease, possibly pulmonary fibrosis, though a previous lung X-ray was reported as clear. The patient's last LDL cholesterol check in June of the previous year was 59. The patient manages benign prostatic hyperplasia with finasteride and tamsulosin and reports no urinary issues or problems with bowel movements, and denies any chest pain. 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 - Tests and Diagnostics: An echocardiogr am in August showed an ejection fraction of 50-55% and grade 1 diastolic dysfunction. - Tests and Diagnostics: A past CT scan showed evidence of underlying lung disease, possibly pulmonary fibrosis. Social History - Tobacco Use: The patient is a former s moker, having quit over 25 years ago after smoking for approximately 10-15 years. - Home Environment: Nasal symptoms are r eported to be worse at home, suggesting possible environmental triggers. [facility] Medical History (Updated 10/31/25 @ 08:37 by Anthony Peralta MD) BPH loc w/o ur obs/LUTS Diastolic heart failure GERD (gastroesophageal reflux disease) BPH (benign prostatic hyperplasia) Hyperlipidemia Hypertension Surgical History (Updated 10/31/25 @ 08:36 by Anthony Peralta MD) S/P cardiac catheterization History of heart artery stent Family History Father No problems noted. Mother No problems noted. Social History Household Members: Spouse and Children Housing: House Do you presently have visiting nurse or other home services: No Alcohol intake: current Alcohol intake frequency: holidays/special occasions only Patient Tobacco Use Status: Former Tobacco user Tobacco use type: Cigarette e-Cigarette/Vaping Use: Never Used service: No Current occupational status: retired Questionnaire Thrive Questionnaire Date Thrive assessed: 08/01/25 DYLAN-7 AMB Questionnaire DYLAN-7 Date DYLAN - 7 assessed: 08/01/25 Source: Developed by Drs. Junior Cristina, Pat Velasquez, Enrike Hayden and colleagues, with an educational jm from [employer]. Review of Systems Narrative Review of Systems - Respiratory: Reports chronic dyspnea, particularly on exertion, and nocturnal nasal congestion causing awakenings gasping for air. - Cardiovascular: Reports bilateral lower extremity edema. Denies chest pain. - HEENT: Reports chronic sinus congestion with nasal dryness and rhinorrhea for over a year, persistent through summer and winter. Reports a sensation of blocked ears. - Integumentary: Reports generalized pruritus. - Genitourinary: Denies urinary problems. - Gastrointestinal: Reports normal bowel movements. All systems reviewed & are unremarkable except as reviewed in HPI and above Physical exam (Primary Care) Vital Signs: Last Vital Signs Temp 97.8 F 10/31/25 08:07 Pulse 39 L 10/31/25 08:07 Resp 22 H 10/31/25 08:07 BP 146/64 H 10/31/25 08:07 Pulse Ox 98 10/31/25 08:07 Oxygen Delivery Method Room Air 10/31/25 08:07 Care Plan Goal for BP management: Pressures at home within goal Next steps: Continue same treatment BMI result Body Mass Index 30.7 Tobacco/Smoking Status: Tobacco use Status Tobacco use date assessed 08/01/25 10/31/25 08:01 Patient Tobacco Use Status Former Tobacco user 10/31/25 08:01 Tobacco use type Cigarette 10/31/25 08:01 e-Cigarette/Vaping Use Never Used 10/31/25 08:01 Thrive Assessment: Date of Thrive Assessment Date Thrive assessed 08/01/25 10/31/25 08:09 Narrative Physical Exam General: +Alert and oriented, Well nourished, No acute distress. Eye: Pupils are equal, round and reactive to light, Intact accommodation, Extraocular movements are intact, Normal conjunctiva, Vision unchanged. HENT: Normocephalic, Atraumatic, Tympanic membranes are clear, Normal hearing, Oral mucosa is moist, No pharyngeal erythema, Ear canals patent. Respiratory: Lungs CTA bilaterally, No wheeze, Respirations are non-labored, Possible underlying lung disease, possibly pulmonary fibrosis, Albuterol inhaler prescribed. Cardiovascular: Regular rate, Regular rhythm, S1 auscultated, S2 auscultated, No murmur, Good pulses equal in all extremities, Normal peripheral perfusion, Swelling noted in both legs, more on the right, Grade 1 diastolic dysfunction, RVSP elevated. Gastrointestinal: Soft, Non-tender, Non-distended, Normal bowel sounds, No organomegaly. Musculoskeletal: Normal range of motion, Normal strength, No tenderness, No swelling, No deformity, Normal gait. Integumentary: Warm, Dry, Potter, Intact, Itching noted, possibly due to allergies. Neurologic: Alert, Oriented, Normal sensory, Normal motor function, No focal defects, Cranial Nerves II-XII are grossly intact, Normal deep tendon reflexes. Psychiatric: Cooperative, Appropriate mood & affect, Normal judgment. Coding Level of Care Code Est Pt Level 4 (39012) Complex visit Add On G2211 Diagnoses SOB (shortness of breath) R06.02 Nasal congestion R09.81 Diastolic heart failure, unspecified HF chronicity I50.30 Heart failure chronicity: unspecified Primary hypertension I10 S/P cardiac catheterization Z98.890 BPH loc w/o ur obs/LUTS N40.0 Other hyperlipidemia E78.49 Hyperlipidemia type: other hyperlipidemia Assessment & Plan Assessment & Plan (1) SOB (shortness of breath): Comment: The patient exhibits significant dyspnea on exertion. Given the history of smoking and findings on a prior CT scan suggesting underlying lung disease (possibly pulmonary fibrosis or COPD), further pulmonary evaluation is warranted. An albuterol inhaler will be prescribed for as-needed use for dyspnea. A referral to a data governance consultant will be made, and pulmonary function tests will be ordered to assess lung function. Code(s): R06.02 - Shortness of breath Category: Medical Plan: - The patient experiences significant dyspnea on exertion. Given the past smoking history and prior CT findings of lung disease, COPD is suspected as a contributing factor. - Plan is to prescribe an albuterol inhaler for as-needed use to alleviate short ness of breath. - A referral will be made to a data governance consultant for specialist evaluation. - Pulmonary function tests will be ordered to formally assess lung function. (2) Nasal congestion: Comment: The patient reports persistent nasal congestion for over a year, worse at night and at home, which has been refractory to nasal sprays and a humidifier. This, along with generalized pruritus, is suggestive of an allergic component. The plan is to initiate nightly loratadine, an [id number] antihistamine. A referral will be made to an ENT specialist for further evaluation. The patient was also advised to clean the air vents and ducts at home to mitigate potential environmental triggers. Code(s): R09.81 - Nasal congestion Category: Medical Plan: - The patient presents with chronic nasal congestion, dryness, and rhinorrhea, which is suggestive of chronic sinusitis and allergic rhinitis, given the accompanying pruritus and exacerbation in the home environment. - The patient has failed previous treatments with unspecified nasal sprays and a humidifier. - Plan is to initiate loratadine nightly to manage allergic symptoms. - A referral to an ENT specialist will be placed for further evaluation. - The patient is advised to perform environmental mitigation by cleaning home air vents and ducts. (3) Diastolic heart failure: Comment: The patient presents with shortness of breath and bilateral lower extremity edema, in the context of known grade 1 diastolic dysfunction (EF 50-55%). These symptoms are likely due to fluid retention. A trial of a diuretic (water pill) is planned, with instructions to take one pill every other day for three doses. The patient is to monitor for improvement in swelling and breathing and to call for a refill if effective, but to discontinue if the swelling resolves. Code(s): I50.30 - Unspecified diastolic (congestive) heart failure Category: Medical Qualifiers: Heart failure chronicity: unspecified Qualified Code(s): I50.30 - Unspecified diastolic (congestive) heart failure Plan: - The patient's shortness of breath and bilateral lower extremity edema are likely manifestations of fluid overload secondary to grade 1 diastolic dysfunction. - Plan is to initiate a trial of a diuretic (water pill), to be taken every other day for three doses. - The patient will monitor for symptomatic improvement and resolution of edema, and should call for more medication if it is effective. (4) Primary hypertension: Comment: The patient's blood pressure is borderline elevated at 146/64 mmHg. No changes will be made to the current regimen of amlodipine 10 mg and metoprolol tartrate 50 mg twice daily at this time. Code(s): I10 - Essential (primary) hypertension Category: Medical Plan: - Blood pressure is borderline elevated at 146/64 mmHg. - The patient reports taking amlodipine 10 mg and metoprolol tartrate 50 mg twice daily. - No changes will be made to the current antihypertensive regimen at this time. (5) S/P cardiac catheterization: Comment: 06/14/[address] Seay Angiographic Findings Cardiac Arteries and Lesion Findings LMCA: Mild disease distal left main. LAD: Mid LAD 40% calcified stenosis. First diagonal ostium has 70% stenosis. Lesion in Mid LAD: 95% stenosis .Bifurcation lesion. Lesion in Mid LAD: Distal subsection.Bifurcation lesion. Lesion in 1st Diag: LCx: Mild luminal irregularities (<30%). RCA: Mild luminal irregularities (<30%). PCI to mid LAD - Continue Aspirin Code(s): Z98.890 - Other specified postprocedural states Category: Surgical (6) BPH loc w/o ur obs/LUTS: Comment: The patient is stable on finasteride and tamsulosin, reporting no urinary issues. The plan is to continue the current medications. Code(s): N40.0 - Benign prostatic hyperplasia without lower urinary tract symptoms Category: Medical (7) Hyperlipidemia: Comment: The patient's condition is well-controlled on atorvastatin 40 mg, with a previous LDL of 59. The plan is to continue the current medication. Code(s): E78.5 - Hyperlipidemia, unspecified Category: Medical Qualifiers: Hyperlipidemia type: other hyperlipidemia Qualified Code(s): E78.49 - Other hyperlipidemia Plan: Health Maintenance: - Environmental Modifications: Recommended cleaning of home air vents and ducts to reduce potential allergens and improve respiratory symptoms. - Medication Review: Confirmed adherence to current medications including aspirin, atorvastatin 40 mg, amlodipine 10 mg, metoprolol tartrate 50 mg BID, finasteride 5 mg, and tamsulosin 0.4 mg. Patient was informed and verbally consented to the use of an ambient scribe for clinic note documentation during this visit. Plan I explained to the patient that the shortness of breath and leg swelling are likely related to fluid retention from the heart, which has a slightly reduced pumping function and difficulty relaxing. We discussed trying a water pill for a few days to see if it provides relief. I also discussed that the chronic sinus issues and itching are likely due to allergies, possibly from triggers within the patient's home, and recommended an [id number] allergy medication and cleaning the air ducts. For these sinus issues, I will refer the patient to an ENT specialist. Furthermore, I explained that the underlying shortness of breath may be due to lung disease from the patient's past smoking history, and I am prescribing an inhaler, ordering lung function tests, and referring the patient to a lung specialist for a comprehensive evaluation. The patient was informed that setting up these specialist appointments and tests may take several weeks or months. Orders: Orders PFT pulmonary function test Today R06.02 - Shortness of breath Referrals Pulmonology Referral R06.02 - Shortness of breath Ear/Nose/Throat Referral R09.81 - Nasal congestion Medications: New loratadine Every night 10 mg PO DAILY PRN 30 tabs 0RF allergy symptoms furosemide (Lasix) 20 mg PO Q OTHER DAY 3 tabs 0RF albuterol sulfate 90 mcg/actuation (Ventolin HFA) 2 puffs inhalation Q6H PRN 8.5 grams 0RF shortness of breath or wheezing Patient Instructions: - Take the water pill I prescribed every other day for 3 doses. If you feel better and the swelling in your legs goes down, give our office a call. If your swelling goes away completely, you can stop taking it. - Take one loratadine tablet, which is an vgqy-zhp-cfryqen allergy medicine, every night about an hour or two before you go to bed. This should help with your stuffy nose and itching. - Use the albuterol inhaler I prescribed whenever you feel short of breath. - Please make sure to clean the air vents and ducts in your home, as this may help with your allergy symptoms. - Continue taking all your other daily medications as prescribed. - We will be sending referrals for you to see an Ear, Nose, and Throat (ENT) doctor and a lung doctor. We will also schedule a lung function test. It may take some time before you are contacted for these appointments.
[2025-10-31 08:07] VITALS: BP 146/64; PULSE 39; RESP 22; TEMP 36.6; O2SAT 98; BMI 30.7
== END 2025-10-31 08:27 | disposition home or self-care (01) ==
LOC: HO.HMCHD 07:56
PROVIDERS: PCP Student in an Organized Health Care Education/Training Program; Visit Provider Student in an Organized Health Care Education/Training Program
DX: R06.02 Shortness of breath (principal); R09.81 Nasal congestion; I50.30 Unspecified diastolic (congestive) heart failure; I10 Essential (primary) hypertension; Z98.890 Other specified postprocedural states; N40.0 Benign prostatic hyperplasia without lower urinary tract symptoms; E78.49 Other hyperlipidemia

== ENCOUNTER → 2025-10-31 07:56 | Outpatient (BNVA) | payer MEDICARE, SELFPAY | PROVIDERS: PCP Student in an Organized Health Care Education/Training Program; Visit Provider Student in an Organized Health Care Education/Training Program | DX: R06.02 Shortness of breath (principal); Z87.891 Personal history of nicotine dependence; R09.81 Nasal congestion; I11.0 Hypertensive heart disease with heart failure; I50.30 Unspecified diastolic (congestive) heart failure; R60.9 Edema, unspecified; Z95.5 Presence of coronary angioplasty implant and graft; N40.0 Benign prostatic hyperplasia without lower urinary tract symptoms; E78.49 Other hyperlipidemia | CPT/HCPCS: 99212 ==